=== PATIENT | male | born 1960 | race Caucasian/White ===

== ENCOUNTER 2020-09-01 02:00 | Outpatient (CLI) | payer OTHER, SELFPAY ==
[2020-09-01 18:46] LABS: SARS-CoV-2 RNA PCR Negative
== END 2020-09-01 02:01 | disposition home or self-care (01) ==
LOC: ANHCOVIDDT 02:00
PROVIDERS: PCP Family Medicine; Visit Provider Internal Medicine Gastroenterology
DX: Z01.818 Encounter for other preprocedural examination (principal); Z20.828 Contact with and (suspected) exposure to other viral communicable diseases
CPT/HCPCS: 87635; C9803; U0003

== ENCOUNTER 2020-09-04 01:22 | Day surgery (SDC) | payer OTHER, SELFPAY ==
[2020-08-28 14:52] VITALS: BMI 36.5
[2020-09-04 11:02] VITALS: BP 138/100; PULSE 117; RESP 18; TEMP 36.1; O2SAT 97
[2020-09-04] MEDS: LACTATED RINGERS 1,000 ML 150 ML IV CONT (11:05)
--- NOTE | 2020-09-04 11:27 | WPDANESEPPF ---
Anes - Initial Pre Proc Eval Procedure: Operation Date: 09/04/20 12:00 Proposed Procedures p Screening Colonoscopy - Dominik Gilliam DO Date/Time: 09/04/20 11:27 Surgeon: Dominik Gilliam DO Pre Op Diagnosis: Neoplasm Screening Patient Data Age: 60 Gender: M Height: 5 ft 8 in Weight: 104.7 kg Last Vital Signs Temp 36.1 C L 09/04/20 11:02 Pulse 117 H 09/04/20 11:02 Resp 18 09/04/20 11:02 BP 138/100 H 09/04/20 11:02 Pulse Ox 97 09/04/20 11:02 Allergies Allergy/AdvReac Type Severity Reaction Status Date / Time No Known Allergies Allergy Verified 09/04/20 11:01 Home Medications Medication Instructions Recorded Confirmed Type fluticasone propionate 50 1 spray NASAL BID #18.2 ml 08/30/19 08/28/20 Rx mcg/actuation nasal spray,suspension omeprazole 20 mg capsule,delayed 20 mg PO DAILY #30 cap 05/31/20 08/28/20 Rx release cefdinir 300 mg capsule 300 mg PO Q12H #20 cap 06/12/20 08/28/20 Rx duloxetine 60 mg capsule,delayed 60 mg PO BID #60 cap 06/12/20 08/28/20 Rx release ascorbic acid (vitamin C) 1 g PO DAILY 08/28/20 08/28/20 History celecoxib 200 mg PO DAILY 08/28/20 08/28/20 History cyanocobalamin (vitamin B-12) 1,000 mcg PO DAILY 08/28/20 08/28/20 History [Vitamin B-12] ergocalciferol (vitamin D2) 1,000 unit PO DAILY 08/28/20 08/28/20 History [Vitamin D2] vitamin E mixed [Natural Vitamin E] 400 unit PO DAILY 08/28/20 08/28/20 History Patient hx anesthesia problems: none Family hx anesthesia problems: none PMFSH Past Medical History Medical History Acute recurrent maxillary sinusitis Acute recurrent sinusitis Benign colon polyp Chronic depression Chronic neck pain Chronic tension-type headache, not intractable Chronic thoracic back pain Depression Encounter for prostate cancer screening Encounter for wellness examination in adult Exposure to COVID-19 virus GERD (gastroesophageal reflux disease) Migraine Mixed hyperlipidemia Osteoarthritis involving multiple joints on both sides of body Seasonal allergic rhinitis Vitamin B12 deficiency anemia Vitamin D deficiency, unspecified Surgical History Surgical History H/O knee surgery H/O neck surgery Family History Family History Mother , age 89 Breast cancer Heart valve disorder Father , age 90 Cancer Heart disease Arthritis Social History Social History Smoking packs per day: 1 Smoking cigarettes per day: 20.0 Years smoked: 15 Smoking pack-years: 15.00 Smoking status: Former smoker Tobacco type: cigarettes Second hand tobacco smoke exposure: No Alcohol intake: current Drinks per week: 1 Substance use: never Substance use type: does not use Gender identity (if verbalized by the patient): Male Spiritual care concerns: No Anes - Eval Final PreProcedure Day of Procedure 09/04/20 11:27 Patient weight: obese Heart: regular rate and rhythm Lungs: clear to auscultation Airway: Mallampati scale class II Neurological: alert and oriented Last oral intake: >/= 8 hours ASA classification: III Emergent: no Anesthetic plan: proceed Anesthesia type and monitoring: general GIVS and standard monitoring Informed Consent: The patient's anesthetic plan and its attendant risks and benefits were discussed with the patient/family/POA. Questions were solicited and answers provided to the satisfaction of the patient/family/POA.
--- NOTE | 2020-09-04 11:59 | WPDHPUPDATE1 ---
History and Physical Update Update Date/Time: 09/04/20 11:59 History and Physical has been reviewed, including an updated exam of the patient. There are NO changes in the patient's condition. Risks, benefits, and alternatives have been discussed and questions answered. Patient agrees to proceed with procedure.
--- NOTE | 2020-09-04 11:59 | PM.IMHP ---
H&P: HPI History of Present Illness Date/Time: 09/04/20 11:59 Chief complaint: Neoplasm Screening Narrative: Reason for visit is colonoscopy. This very pleasant gentleman seen in consultation request of the primary physician. Impression: Screening and surveillance colonoscopy. The patient has a history adenomatous colon polyps. GERD. He does Plane of recent dysphagia. Underlying ring stricture be excluded. Depression. HLD. Recommendation: Colonoscopy. EGD will be scheduled. History: This very pleasant gentleman is negative GI review systems at this time. He does have complaints of dysphagia. He is here for screening and surveillance colonoscopy. His history adenomatous colon polyps. Physical examination: General: very pleasant patient in no acute distress. HEENT: Head was normocephalic sclerae is clear mouth without masses neck was supple. Heart: Rate rhythm regular without S3 or S4. Lungs: CTA. Abdomen: Soft with no guarding or rigidity. Bowel sounds were active. Neurologic: Cranial nerves 2 through 12 intact. No focal defects. No clonus. Musculoskeletal system: Revealed no joint tenderness or swelling no muscle atrophy. Extremities: Reveal no significant edema. Skin: Warm and dry with normal turgor. Mental status: intact. Patient is alert and oriented. Review of Systems Review of Systems: All systems reviewed & are unremarkable except as noted in HPI and below PMFSH Past Medical History Medical History (Updated 09/04/20 @ 11:59 by Dominik Gilliam DO) Acute recurrent maxillary sinusitis Acute recurrent sinusitis Adenomatous colon polyp Benign colon polyp Chronic depression Chronic neck pain Chronic tension-type headache, not intractable Chronic thoracic back pain Depression Encounter for prostate cancer screening Encounter for wellness examination in adult Exposure to COVID-19 virus GERD (gastroesophageal reflux disease) Migraine Mixed hyperlipidemia Osteoarthritis involving multiple joints on both sides of body Seasonal allergic rhinitis Vitamin B12 deficiency anemia Vitamin D deficiency, unspecified Surgical History Surgical History H/O knee surgery H/O neck surgery Family History Family History Mother , age 89 Breast cancer Heart valve disorder Father , age 90 Cancer Heart disease Arthritis Social History Social History Smoking packs per day: 1 Smoking cigarettes per day: 20.0 Years smoked: 15 Smoking pack-years: 15.00 Smoking status: Former smoker Tobacco type: cigarettes Second hand tobacco smoke exposure: No Alcohol intake: current Drinks per week: 1 Substance use: never Substance use type: does not use Gender identity (if verbalized by the patient): Male Spiritual care concerns: No Meds Home Medications and Allergies Home Medications Medication Instructions Recorded Confirmed Type fluticasone propionate 50 1 spray NASAL BID #18.2 ml 08/30/19 08/28/20 Rx mcg/actuation nasal spray,suspension omeprazole 20 mg capsule,delayed 20 mg PO DAILY #30 cap 05/31/20 08/28/20 Rx release cefdinir 300 mg capsule 300 mg PO Q12H #20 cap 06/12/20 08/28/20 Rx duloxetine 60 mg capsule,delayed 60 mg PO BID #60 cap 06/12/20 08/28/20 Rx release ascorbic acid (vitamin C) 1 g PO DAILY 08/28/20 08/28/20 History celecoxib 200 mg PO DAILY 08/28/20 08/28/20 History cyanocobalamin (vitamin B-12) 1,000 mcg PO DAILY 08/28/20 08/28/20 History [Vitamin B-12] ergocalciferol (vitamin D2) 1,000 unit PO DAILY 08/28/20 08/28/20 History [Vitamin D2] vitamin E mixed [Natural Vitamin E] 400 unit PO DAILY 08/28/20 08/28/20 History Allergies Allergy/AdvReac Type Severity Reaction Status Date / Time No Known Allergies Allergy Verified
[2020-09-04 12:21] VITALS: BP 113/79; PULSE 99; RESP 21; O2SAT 96
[2020-09-04 12:31] VITALS: BP 130/90; PULSE 94; RESP 18; O2SAT 97
[2020-09-04 12:41] VITALS: BP 128/94; PULSE 94; RESP 18; O2SAT 94
== END 2020-09-04 12:50 | disposition home or self-care (01) ==
PROVIDERS: PCP Family Medicine; Visit Provider Internal Medicine Gastroenterology
PROC: 0DJD8ZZ Inspection of Lower Intestinal Tract, Via Natural or Artificial Opening Endoscopic (ICD-10-PCS; CPT 45378; principal; 2020-09-04 12:00)
DX: Z12.11 Encounter for screening for malignant neoplasm of colon (principal); J32.0 Chronic maxillary sinusitis; K64.8 Other hemorrhoids; D51.0 Vitamin B12 deficiency anemia due to intrinsic factor deficiency; G44.209 Tension-type headache, unspecified, not intractable; E55.9 Vitamin D deficiency, unspecified; F32.9 Major depressive disorder, single episode, unspecified; K21.9 Gastro-esophageal reflux disease without esophagitis; G43.909 Migraine, unspecified, not intractable, without status migrainosus; E78.2 Mixed hyperlipidemia; E66.9 Obesity, unspecified; Z68.35 Body mass index [BMI] 35.0-35.9, adult; Z87.891 Personal history of nicotine dependence
CPT/HCPCS: 45378; J2704; J7120

== ENCOUNTER 2020-10-16 00:31 | Outpatient (CLI) | payer OTHER, SELFPAY ==
[2020-10-16 18:26] LABS: SARS-CoV-2 RNA PCR Negative
== END 2020-10-16 00:32 | disposition home or self-care (01) ==
LOC: ANHCOVIDDT 00:32
PROVIDERS: PCP Family Medicine; Visit Provider Internal Medicine Gastroenterology
DX: Z01.812 Encounter for preprocedural laboratory examination (principal); Z20.822 Contact with and (suspected) exposure to COVID-19
CPT/HCPCS: C9803; U0003; U0005

== ENCOUNTER 2020-10-19 01:19 | Day surgery (SDC) | payer OTHER, SELFPAY ==
[2020-10-02 15:45] VITALS: BMI 35.9
[2020-10-19 07:50] VITALS: BP 169/102; PULSE 105; RESP 17; TEMP 36.4; O2SAT 99; BMI 36.6
[2020-10-19] MEDS: LACTATED RINGERS 1,000 ML 150 ML IV CONT (08:02)
[2020-10-19 08:05] VITALS: BP 158/84
--- NOTE | 2020-10-19 09:02 | WPDGICN ---
GI Consult Note Consult date/time: 10/19/20 09:02 HPI: Reason for visit is EGD. This very pleasant gentleman seen in consultation request of the primary physician. Impression: GERD with history dysphagia. Evaluate for lying ring or stricture. Adenomatous colon polyps. Recurrent sinusitis. Depression. HLD. DJD. Migraine cephalgia. Vitamin B12 deficiency. Vitamin-D deficiency. Recommendation: EGD. History: This very pleasant gentleman's here for EGD. He has a history of dysphagia to solid foods. He has a history reflux disease well controlled on medication. GI review systems otherwise unremarkable. Did have a history of adenomatous colon polyps. Does have some difficulty with his sinuses which is being treated by ENT. Physical examination: General: very pleasant patient in no acute distress. HEENT: Head was normocephalic sclerae is clear mouth without masses neck was supple. Heart: Rate rhythm regular without S3 or S4. Lungs: CTA. Abdomen: Soft with no guarding or rigidity. Bowel sounds were active. Neurologic: Cranial nerves 2 through 12 intact. No focal defects. No clonus. Musculoskeletal system: Revealed no joint tenderness or swelling no muscle atrophy. Extremities: Reveal no significant edema. Skin: Warm and dry with normal turgor. Mental status: intact. Patient is alert and oriented. Review of Systems Review of Systems: All systems reviewed & are unremarkable except as noted in HPI and below [facility] Past Medical History Medical History (Updated 10/19/20 @ 09:01 by Dominik Gilliam DO) Acute recurrent sinusitis Adenomatous colon polyp Chronic depression Depression GERD (gastroesophageal reflux disease) HLD (hyperlipidemia) Migraine Osteoarthritis involving multiple joints on both sides of body Seasonal allergic rhinitis Vitamin B12 deficiency anemia Vitamin D deficiency, unspecified Surgical History Surgical History H/O knee surgery H/O neck surgery Family History Family History Mother , age 89 Breast cancer Heart valve disorder Father , age 90 Cancer Heart disease Arthritis Social History Social History Smoking packs per day: 1 Smoking cigarettes per day: 20.0 Years smoked: 10 Smoking pack-years: 10.00 Smoking status: Current every day smoker Tobacco type: cigarettes Second hand tobacco smoke exposure: No Smoking end date: 09/22/99 Alcohol intake: current Drinks per week: 1 Substance use: never Substance use type: does not use Living arrangements: with family Gender identity (if verbalized by the patient): Male Spiritual care concerns: No Meds Home Medications and Allergies Home Medications Medication Instructions Recorded Confirmed Type omeprazole 20 mg capsule,delayed 20 mg PO DAILY #30 cap 05/31/20 10/19/20 Rx release ascorbic acid (vitamin C) 1 g PO DAILY 08/28/20 10/19/20 History celecoxib 200 mg PO DAILY 08/28/20 10/19/20 History cyanocobalamin (vitamin B-12) 1,000 mcg PO DAILY 08/28/20 10/19/20 History [Vitamin B-12] ergocalciferol (vitamin D2) 1,000 unit PO DAILY 08/28/20 10/19/20 History [Vitamin D2] vitamin E mixed [Natural Vitamin E] 400 unit PO DAILY 08/28/20 10/19/20 History cefdinir 300 mg capsule 300 mg PO Q12H #20 cap 09/25/20 10/19/20 Rx duloxetine 60 mg PO DAILY 10/02/20 10/19/20 History bhwghzeohbil-ovzhmgql-hwquul 1 tablet PO DAILY 10/02/20 10/19/20 History [Multivitamin 50 Plus] azelastine 137 mcg (0.1 %) nasal 1 spray INTRANASAL Q12H #30 ml 10/04/20 10/19/20 Rx spray aerosol fluticasone propionate 50 1 spray INTRANASAL BID #15.8 ml 10/04/20 10/19/20 Rx mcg/actuation nasal spray,suspension Allergies Allergy/AdvReac Type Severity Reaction Status Date / Time No
--- NOTE | 2020-10-19 09:16 | WPDANESEPPF ---
Anes - Initial Pre Proc Eval Procedure: Operation Date: 10/19/20 09:00 Proposed Procedures p Esophagogastroduodenoscopy - Dominik Gilliam DO Date/Time: 10/19/20 09:16 Surgeon: Dominik Gilliam DO Pre Op Diagnosis: GERD Patient Data Age: 60 Gender: M Height: 5 ft 8 in Weight: 109.2 kg Last Vital Signs Temp 97.6 F 10/19/20 07:50 Pulse 105 H 10/19/20 07:50 Resp 17 10/19/20 07:50 BP 158/84 H 10/19/20 08:05 Pulse Ox 99 10/19/20 07:50 Allergies Allergy/AdvReac Type Severity Reaction Status Date / Time No Known Allergies Allergy Verified 10/19/20 07:49 Home Medications Medication Instructions Recorded Confirmed Type omeprazole 20 mg capsule,delayed 20 mg PO DAILY #30 cap 05/31/20 10/19/20 Rx release ascorbic acid (vitamin C) 1 g PO DAILY 08/28/20 10/19/20 History celecoxib 200 mg PO DAILY 08/28/20 10/19/20 History cyanocobalamin (vitamin B-12) 1,000 mcg PO DAILY 08/28/20 10/19/20 History [Vitamin B-12] ergocalciferol (vitamin D2) 1,000 unit PO DAILY 08/28/20 10/19/20 History [Vitamin D2] vitamin E mixed [Natural Vitamin E] 400 unit PO DAILY 08/28/20 10/19/20 History cefdinir 300 mg capsule 300 mg PO Q12H #20 cap 09/25/20 10/19/20 Rx duloxetine 60 mg PO DAILY 10/02/20 10/19/20 History lljvmgplvpfo-yotqtcbi-xzhqwi 1 tablet PO DAILY 10/02/20 10/19/20 History [Multivitamin 50 Plus] azelastine 137 mcg (0.1 %) nasal 1 spray INTRANASAL Q12H #30 ml 10/04/20 10/19/20 Rx spray aerosol fluticasone propionate 50 1 spray INTRANASAL BID #15.8 ml 10/04/20 10/19/20 Rx mcg/actuation nasal spray,suspension Patient hx anesthesia problems: none Family hx anesthesia problems: none PMFSH Past Medical History Medical History (Updated 10/19/20 @ 09:05 by Dominik Gilliam DO) Acute recurrent sinusitis Adenomatous colon polyp Depression Gastric ulcer GERD (gastroesophageal reflux disease) HLD (hyperlipidemia) Migraine Osteoarthritis involving multiple joints on both sides of body Seasonal allergic rhinitis Vitamin B12 deficiency anemia Vitamin D deficiency, unspecified Surgical History Surgical History H/O knee surgery H/O neck surgery Family History Family History Mother , age 89 Breast cancer Heart valve disorder Father , age 90 Cancer Heart disease Arthritis Social History Social History Smoking packs per day: 1 Smoking cigarettes per day: 20.0 Years smoked: 10 Smoking pack-years: 10.00 Smoking status: Current every day smoker Tobacco type: cigarettes Second hand tobacco smoke exposure: No Smoking end date: 09/22/99 Alcohol intake: current Drinks per week: 1 Substance use: never Substance use type: does not use Living arrangements: with family Gender identity (if verbalized by the patient): Male Spiritual care concerns: No Anes - Eval Final PreProcedure Day of Procedure 10/19/20 09:16 Patient weight: overweight Heart: regular rate and rhythm Lungs: clear to auscultation Airway: Mallampati scale class II Neurological: alert and oriented Last oral intake: >/= 8 hours ASA classification: III Emergent: no Anesthetic plan: proceed Anesthesia type and monitoring: general GIVS and standard monitoring Informed Consent: The patient's anesthetic plan and its attendant risks and benefits were discussed with the patient/family/POA. Questions were solicited and answers provided to the satisfaction of the patient/family/POA.
[2020-10-19 10:04] VITALS: BP 105/56; PULSE 90; RESP 20; O2SAT 99
[2020-10-19 10:14] VITALS: BP 119/74; PULSE 86; RESP 8; O2SAT 98
[2020-10-19 10:24] VITALS: BP 135/80; PULSE 84; RESP 18; O2SAT 98
== END 2020-10-19 10:31 | disposition home or self-care (01) ==
PROVIDERS: PCP Family Medicine; Visit Provider Internal Medicine Gastroenterology
PROC: 0DJ08ZZ Inspection of Upper Intestinal Tract, Via Natural or Artificial Opening Endoscopic (ICD-10-PCS; CPT 43235; principal; 2020-10-19 09:00)
DX: K21.9 Gastro-esophageal reflux disease without esophagitis (principal); R13.10 Dysphagia, unspecified; E78.5 Hyperlipidemia, unspecified; F32.9 Major depressive disorder, single episode, unspecified; E55.9 Vitamin D deficiency, unspecified; E53.8 Deficiency of other specified B group vitamins; F17.210 Nicotine dependence, cigarettes, uncomplicated
CPT/HCPCS: 43239; 43450; 87081; C9803; J2704; J7120; U0003; U0005

== ENCOUNTER → 2021-09-06 03:54 | Outpatient (CLI) | payer OTHER, SELFPAY ==
[2021-09-11 22:52] LABS: SARS-CoV-2 RNA PCR Negative
== END ==
PROVIDERS: PCP Family Medicine; Visit Provider Family Medicine
DX: R68.89 Other general symptoms and signs (principal); Z20.822 Contact with and (suspected) exposure to COVID-19
CPT/HCPCS: C9803; U0003; U0005

== ENCOUNTER 2022-01-02 07:59 | Outpatient (CLI) | payer OTHER, SELFPAY ==
--- NOTE | ~2022-01-02 | CT_ITS ---
EXAMINATION: CT sinus wo con DATE: 01/02/2022 08:18 INDICATION: Nasal polyp, chronic sinusitis TECHNIQUE: Computed tomography (CT) of the paranasal sinuses was performed without intravenous contra st. The dose-length product (DLP) was 258.77 mGy-cm. Iterative reconstruction was used. COMPARISON: None FINDINGS: There is normal development and pneumatization of the paranasal sinuses. There is mild muco [place]aviota thickening of the maxillary sinuses. The frontal, sphenoid, and ethmoid sinuses are clear. The ri ght infundibulum is occluded. Visualized soft tissues are unremarkable. IMPRESSION: 1. Mild mucosal thickening of the maxillary sinuses and occluded infundibulum on the right. Reviewed, dictated and finalized at location A. IMPRESSION: 1. Mild mucosal thickening of the maxillary sinuses and occluded infundibulum o n the right.
== END 2022-01-02 08:00 ==
PROVIDERS: PCP Family Medicine; Visit Provider Otolaryngology
DX: J33.9 Nasal polyp, unspecified (principal)
CPT/HCPCS: 70486

== ENCOUNTER 2022-05-20 07:42 | Outpatient (CLI) | payer OTHER, SELFPAY ==
--- NOTE | 2022-05-26 23:37 | WPDHOMESLEEP ---
Sleep Study - Home Unattended Date of Study: 05/20/22 Ordering Provider: Reina Singh NP Interpreting Provider: Teressa Bill, DO Home Sleep Study Type: Watch PAT Height: 1.73 m Weight: 108.862 kg Body Mass Index: 36.5 Neck Circumference (inches): 18 [place]: 13 Reason for Sleep Study Daytime hypersomnia Sleep History The patient is a 62-year-old male with depression, GERD, osteoarthritis and seasonal allergies that had a sleep study ordered by his primary care for evaluation of sleep apnea. The patient rarely awakens from sleep short of breath. He frequently awakens at night with heartburn, belching or cough. He frequently snores loud enough that others complain. He occasionally has trouble sleeping when he has a cold. He rarely wakes up gasping for air throughout the night. He frequently has breathing problems at night observed by himself or others. He denies sweating excessively at night. He rarely has heart palpitations or irregular heartbeats during the night. He occasionally falls asleep during the day and rarely falls asleep while driving. He occasionally experiences loss of muscle tone when extremely emotional. He frequently has trouble at school or work due to sleepiness. He denies feeling unable to move while waking up or falling asleep. He denies experiencing vivid dreamlike scenes upon awakening or falling asleep. He denies feeling afraid of going to sleep. He rarely has nightmares. He rarely remembers his dreams. He frequently has thoughts racing through his mind. He occasionally feels sad or depressed. He frequently has anxiety. He occasionally has muscular tension. He occasionally notices parts of his body jerk. He rarely kicks during the night. He occasionally has crawling and aching feelings in his legs but rarely awakens with leg pain throughout the night. He frequently grind his teeth during sleep but rarely awakens with morning jaw pain. He is frequently bothered by pain during the day and occasionally awakened by pain during the night. He occasionally wakes up feeling stiff in the morning. He occasionally wakes up with sore achy muscles. He frequently wakes up with pain in the neck, spine or other joints. He goes to bed at 11:00 p.m. on weekdays and between 11:30 p.m. to midnight on the weekends. He did not specify a certain amount of time for him to fall asleep. He wakes up multiple times throughout the night to reposition himself. The amount of time it takes him to fall back asleep is variable. He wakes up at 6:00 a.m. on weekdays and 7:00 a.m. on the weekends. He is unsure how many hours of sleep he gets per night but will stay in bed for 7-8 hours every night. He will stay in bed for 30 minutes after waking up in the morning. He denies consuming any caffeinated beverages within 2 hours of bedtime. He does not engage in physical exercise before bedtime. He will watch television before falling asleep. He will attempt to take a nap in the afternoon or the evening but it is not refreshing. He does not consume any caffeinated beverages throughout the day. He quit smoking 27 years ago. He drinks 4-5 alcoholic beverages per week. He denies recreational drug use. PMFSH Past Medical History Medical History Acute recurrent sinusitis Adenomatous colon polyp Bilateral chronic knee pain BMI 36.0-36.9,adult BMI 37.0-37.9, adult Depression Gastric ulcer GERD (gastroesophageal reflux disease) normal EGD with Dr. Gilliam on 10/19/2020 Hypersomnia Migraine Osteoarthritis involving multiple joints on both sides of body Seasonal allergic rhinitis Snoring Vitamin B12 deficiency anemia Vitamin D deficiency, unspecified Witnessed episode of apnea Surgical History Surgical History H/O knee surgery H/O neck surgery Family History Family History (Reviewed 05/26/22 @ 23:41 by Jose
[2022-05-26 23:47] VITALS: BMI 36.5
== END 2022-05-21 11:32 | disposition home or self-care (01) ==
LOC: ANHCSM 07:43
PROVIDERS: PCP Family Medicine; Visit Provider Nurse Practitioner Family
DX: G47.30 Sleep apnea, unspecified (principal); G47.33 Obstructive sleep apnea (adult) (pediatric)
CPT/HCPCS: 95800

== ENCOUNTER 2022-06-11 08:09 | Outpatient (CLI) | payer OTHER, SELFPAY ==
--- NOTE | 2022-06-19 10:51 | WPDSLEEPSTUD ---
Sleep Study Date of Study: 06/11/22 Ordering Provider: Dylan Rebolledo MD Interpreting Physician: Carina Cruz MD Sleep Study Type: Split Polysomnogram Height: 1.7 m Weight: 108.862 kg Body Mass Index: 37.5 Neck Circumference (inches): 18 [place]: 13 Reason for Sleep Study * Home sleep test using [employer] 05/20/2022 with severe obstructive sleep apnea, AHI 71.6 and desaturation to 75%. His central apnea index was 6. He presents now for CPAP titration. * 06/14/2022 echo - Left ventricular chamber dimension is moderately enlarged. Left ventricular systolic function is normal, estimated at 60-65%. The left ventricular diastolic function is abnormal. There is trace tricuspid valve regurgitation. No pulmonary hypertension, estimated pulmonary arterial systolic pressure is 36 mmHg. Sleep History Joseph Land is a 62 year-old man who has severe obstructive sleep apnea on a recent home sleep test, AHI was 76.1, central apnea index 6 and desaturation to 75%. He did not have Juan C-Grewal respirations. He now presents for a CPAP titration. He had an echo due to the increase central apnea inde of 6. He does not have systolic dysfunction, EF 60-65%, see above. His medical diagnoses include depression, GERD, osteoarthritis and seasonal allergies. He rarely awakens from sleep short of breath.? He frequently awakens at night with heartburn, belching or cough.? He frequently snores loudly enough that others complain.? He occasionally has trouble sleeping when he has a cold.? He rarely wakes up gasping for air throughout the night.? He frequently has breathing problems at night observed by himself or others.? He denies sweating excessively at night.? He rarely has heart palpitations or irregular heartbeats during the night.? He occasionally falls asleep during the day and rarely falls asleep while driving.? He occasionally experiences loss of muscle tone when extremely emotional.? He frequently has trouble at work due to sleepiness.? He denies feeling unable to move while waking up or falling asleep.? He denies experiencing vivid dreamlike scenes upon awakening or falling asleep.? He denies feeling afraid of going to sleep.? He rarely has nightmares.? He rarely remembers his dreams.? He frequently has thoughts racing through his mind.? He occasionally feels sad or depressed.? He frequently has anxiety.? He occasionally has muscular tension.? He occasionally notices parts of his body jerk.? He rarely kicks during the night.? He occasionally has crawling and aching feelings in his legs but rarely awakens with leg pain throughout the night.? He frequently grind his teeth during sleep but rarely awakens with morning jaw pain.? He is frequently bothered by pain during the day and occasionally awakened by pain during the night.? He occasionally wakes up feeling stiff in the morning.? He occasionally wakes up with sore achy muscles.? He frequently wakes up with pain in the neck, spine or other joints.? He goes to bed at 11:00 p.m. on weekdays and between 11:30 p.m. to midnight on the weekends.? He did not specify a certain amount of time for him to fall asleep.? He wakes up multiple times throughout the night to reposition himself.? The amount of time it takes him to fall back asleep is variable.? He wakes up at 6:00 a.m. on weekdays and 7:00 a.m. on the weekends.? He is unsure how many hours of sleep he gets per night but will stay in bed for 7-8 hours every night.? He will stay in bed for 30 minutes after waking up in the morning.? He denies consuming any caffeinated beverages within 2 hours of bedtime.? He does not engage in physical exercise before bedtime.? He will watch television before falling asleep.? He will attempt to take a nap in the afternoon or the evening but it is not refreshing.? He does not consume any caffeinated beverages throughout the day.? He quit smoking 27 years ago.? He drinks 4-5 alcoholic beverages per week.? He denies recreational drug use. PMF
[2022-06-19 11:12] VITALS: BMI 37.5
== END 2022-06-12 05:44 | disposition home or self-care (01) ==
LOC: ANHCSM 08:11
PROVIDERS: PCP Family Medicine; Visit Provider Family Medicine
DX: G47.33 Obstructive sleep apnea (adult) (pediatric) (principal)
CPT/HCPCS: 95811

== ENCOUNTER 2022-06-14 13:35 | Outpatient (CLI) | payer OTHER, SELFPAY ==
--- NOTE | 2022-06-14 14:03 | ECHO_ITS ---
Patient Info Name: Joseph Land Age: 62 years : 1960 Gender: Male Ht: 68 in Wt: 240 lbs BSA: 2.33 m2 HR: 96 bpm BP: 156 / 91 mmHg Technical Quality: Fair Exam Date: 06/14/2022 2:20 PM Exam Location: [facility] Patient Status: Outpatient Admit Date: 06/14/2022 Staff Ordering Physician: Dylan Rebolledo MD Personal Lines Sales Executive: Tracey Suárez RDCS Attending Provider: Dylan Rebolledo MD Referring Physician: Amaury QUEVEDO; Exam Type: CA echo doppler color flow Study Info Indications G47.31 - PRIMARY CENTRAL SLEEP APNEA Complete two-dimensional, color flow and Doppler transthoracic echocardiogram is performed. Summary 1. Complete two-dimensional, color flow and Doppler transthoracic echocardiogram is performed. 2. Left ventricular chamber dimension is moderately enlarged. 3. Left ventricular systolic function is normal, estimated at 60-65%. 4. The left ventricular diastolic function is abnormal. 5. E/e' 10 is mildly elevated. 6. There is trace tricuspid valve regurgitation. 7. No pulmonary hypertension, estimated pulmonary arterial systolic pressure is 36 mmHg. Left Ventricle E/e' 10 is mildly elevated. Left ventricular chamber dimension is moderately enlarged. Left ventricular systolic function is normal, estimated at 60-65%. The left ventricular diastolic function is abnormal. Right Ventricle Right ventricular chamber dimension is normal. Right ventricular systolic function is normal. Left Atria Left atrial chamber dimension is normal. Right Atria Right atrial chamber dimension is normal. Aortic Valve The aortic valve is trileaflet. There is no aortic valve stenosis. There is no aortic valve regurgitation. Pulmonic Valve There is no pulmonic regurgitation. Mitral Valve There is no mitral valve stenosis. There is no mitral valve regurgitation. Tricuspid Valve There is trace tricuspid valve regurgitation. No pulmonary hypertension, estimated pulmonary arterial systolic pressure is 36 mmHg. Pericardium/Pleural There is no pericardial effusion. Inferior Vena Cava Normal inferior vena cava with >50% collapse upon inspiration consistent with normal right atrial pressure, 5 mmHg. Aorta The aortic root size at the sinus of Valsalva is normal. Left Ventricular Outflow Tract Name Value Normal LVOT 2D LVOT Diameter 2.1 cm LVOT Doppler LVOT Peak Gradient 2 mmHg LVOT Mean Gradient 1 mmHg LVOT VTI 13 cm LVOT VTI/AV VTI Ratio 0.7 LVOT Stroke Volume 44 ml LVOT CO 10.5 l/min LVOT CI 4.5 l/min/m2 Pulmonic Valve Name Value Normal PV Doppler PV Peak Gradient 5 mmHg Beti
== END 2022-06-14 13:36 | disposition home or self-care (01) ==
PROVIDERS: PCP Family Medicine; Visit Provider Family Medicine
DX: G47.31 Primary central sleep apnea (principal)
CPT/HCPCS: 93306

== ENCOUNTER 2024-08-05 13:54 | Outpatient (CLI) | payer OTHER, SELFPAY ==
--- NOTE | ~2024-08-05 | MR_ITS ---
MRI of the lumbar spine Clinical History: Back pain Technique: Axial T2-weighted images, and sagittal T1-weighted, T2-weighted, and T2 fat-sat images wer e acquired. Findings: No acute fracture identified. There is minimal grade 1 anterolisthesis of L4 over L5. There are chronic mild compression deformities of T11 and T12. No suspicious or acute bone marrow signal a bnormality seen. At L1-L2, there is no disc bulge or herniation. There is moderate facet arthropathy. No central canal stenosis or neural foraminal narrowing. At L2-L3, there is no disc bulge or herniation. There is moderate facet arthropathy. No central canal stenosis or neural foraminal narrowing. At L3-L4, there is mild diffuse disc bulge with moderate to advanced facet arthropathy. No central ca nal stenosis. There is moderate left neural foraminal narrowing, and mild right neural foraminal narr owing. At L4-L5, there is disc bulge and severe facet arthropathy, resulting in severe spinal canal stenosis /thecal sac compression. There is moderate right neural foraminal narrowing. Left neural foramen pres erved. At L5-S1, there is no disc bulge or herniation. There is moderate facet arthropathy. No central canal stenosis or neural foraminal narrowing. Paravertebral soft tissues are unremarkable. Impression: Severe degenerative spondylosis at L4-L5, as detailed above. Moderate degenerative spondylosis at L3-L4. Chronic mild compression deformities of T11 and T12. Reviewed, dictated and finalized at [facility]. RN[employer] TRAVEL CONSULTANT Impression: Severe degenerative spondylosis at L4-L5, as detailed above. Moderate degenerative spondylosis at L3-L4. Chronic mild compression deformities of T11 and T12.
== END 2024-08-05 13:55 | disposition home or self-care (01) ==
LOC: MICIMG 13:56
PROVIDERS: PCP Family Medicine; Visit Provider Physician Assistant Surgical
DX: M47.896 Other spondylosis, lumbar region (principal); M43.8X4 Other specified deforming dorsopathies, thoracic region
CPT/HCPCS: 72148

== ENCOUNTER 2024-10-12 13:49 | Outpatient (CLI) | payer OTHER, SELFPAY ==
--- NOTE | 2024-10-12 14:02 | ECHO_ITS ---
Patient Info Name: Joseph Land Age: 64 years : 1960 Gender: Male Ht: 67 in Wt: 236 lbs BSA: 2.30 m2 HR: 92 bpm BP: 154 / 84 mmHg Technical Quality: Poor Exam Date: 10/12/2024 2:09 PM Exam Location: Echo Lab Patient Status: Outpatient Admit Date: 10/12/2024 Staff Ordering Physician: Dylan Rebolledo MD Ship Unloader: Dion Kee RDCS Attending Provider: Dylan Rebolledo MD Referring Physician: Amaury UQEVEDO; Exam Type: CA echo dop color flow w con Study Info Indications - HEART DISEASE - CARDIAC MURMUR Complete two-dimensional, color flow and Doppler transthoracic echocardiogram is performed with contrast to opacify the left ventricle and to improve the deliniation of the left ventricle endocardial borders. Contrast/Agitated Saline Contrast/Ag. Saline: Definity Amount: 2.00 ml Existing IV Access: Yes Reason for Poor Study: poor echocardiographic windows Summary 1. Definity contrast administered improved wall motion interpretation. 2. Left ventricular chamber dimension is normal. 3. Left ventricular systolic function is normal, estimated at 60-65%. 4. The left ventricular diastolic function is normal. 5. E/e' 7 is not elevated. 6. There is mild to moderate mitral valve regurgitation. Left Ventricle E/e' 7 is not elevated. Definity contrast administered improved wall motion interpretation. Left ventricular chamber dimension is normal. Left ventricular systolic function is normal, estimated at 60-65%. The left ventricular diastolic function is normal. Right Ventricle Right ventricular systolic function is normal and with normal TAPSE 2.0 cm. Right ventricular chamber dimension is normal. Left Atria Left atrial chamber dimension is normal. Right Atria Right atrial chamber dimension is normal. Aortic Valve The aortic valve is trileaflet. There is no aortic valve stenosis. There is no aortic valve regurgitation. Pulmonic Valve There is no pulmonic regurgitation. Mitral Valve There is no mitral valve stenosis. There is mild to moderate mitral valve regurgitation. Tricuspid Valve There is no tricuspid valve regurgitation. Pericardium/Pleural There is no pericardial effusion. Inferior Vena Cava Normal inferior vena cava with >50% collapse upon inspiration consistent with normal right atrial pressure, 5 mmHg. Aorta The aortic root size at the sinus of Valsalva is normal. Left Ventricular Outflow Tract Name Value Normal LVOT 2D LVOT Diameter 2.13 cm LVOT Doppler LVOT Peak Gradient 3 mmHg LVOT Mean Gradient 2 mmHg LVOT VTI 19.36 cm LVOT VTI/AV VTI Ratio 0.85 LVOT Stroke Volume 69.07 ml LVOT CO 5.22 l/min LVOT CI 2.28 L/min/m2 Pulmonic Valve Name Value Normal RVOT Doppler RVOT Peak Gradient 3 mmHg PV Doppler PV Peak Gradient 4 mmHg Mitral Valve Name Value Normal MV Doppler MV Peak Gradient 4 mmHg MV Mean Gradient 2 mmHg MV Decel Rich 641.20 cm/s2 MV PHT 0 s MV Area (PHT) 6.00 cm2 4.00-5.00 MV Area (Cont Eq VTI) 2.71 cm2 MV Diastolic Function MV E Peak Velocity 81.09 cm/s MV A Peak Velocity 76.27 cm/s MV E/A 1.06 MV Decel Time 0 s MV Annular TDI MV E/e' (Septal) 8.26 <=8.00 MV E/e' (Lateral) 6.24 <=8.00 MV E/e' (Average) 7.25 Tricuspid Valve Name Value Normal Estimated PAP/RSVP RA Pressure 5 mmHg <=5 Aorta Name Value Normal Ascending Aorta Ao Root Diameter (MM) 3.63 cm Ao Root Diam Index (MM) 1.58 cm/m2 Aortic Valve Name Value Normal AV Doppler AV Peak Velocity 125.02 cm/s AV Peak Gradient 6 mmHg AV Mean Gradient 3 mmHg AV VTI 22.81 cm AV Area (Cont Eq VTI) 3.03 cm2 >=3.00 AV Area (Cont Eq Aric) 2.64 cm2 AV Regurgitation 2D LVOT Area 3.57 cm2 Ventricles Name Value Normal LV Dimensions 2D/MM IVS Diastolic Thickness (2D) 1.02 cm 0.60-1.00 LVID Diastole (2D) 4.83 cm 4.20-5.80 LVIW Diastolic Thickness (2D) 1.65 cm 0.60-1.00 LVID Systole (2D) 3.17 cm 2.50-4.00 LVOT Diameter 2.13 cm LV Mass (2D Cubed) 258.06 g 88.00-224.00 LV Mass Index (2D Cubed) 0.01 g/cm2 0.00-0.01 Relative Wall Thickness (2D) 0.68 LV Fractional Shortening/Ejection Fraction 2D/MM LV Fractional Shortening (2D) 36 % 25-43 LV EF (2D Teicholz) 65 % 52-72 LV Diastolic Volume (4C MOD) 138.72 ml LV EF (4C MOD) 71 % LV Diastolic Volume (2C MOD) 98.04 ml LV EF (2C MOD) 63 % LV Diastolic Volume (BP MOD) 118.28 ml 62.00-150.00 LV Diastolic Volume Index (BP MOD) 0.05 l/m2 0.03-0.07 LV Systolic Volume (BP MOD) 38.89 ml 21.00-61.00 LV Systolic Volume Index (BP MOD) 0.02 l/m2 0.01-0.03 LV EF (BP MOD) 67 % 52-72 LV Diastolic Length (4C) 8.21 cm LV Systolic Length (4C) 6.41 cm LV Stroke Volume (4C MOD) 97.84 ml Atria Name Value Normal LA Dimensions LA Dimension (MM) 4.11 cm 3.00-4.10 LA Volume (4C A-L) 58.89 ml LA Volume (BP A-L) 58.43 ml RA Dimensions RA Area (4C) 15.50 cm2 <=18.00 Report Signatures
[2024-10-12] MEDS: PERFLUTREN LIPID MICROSPHERES 1.5 ML VIAL DILUTED TO 10 ML TOTAL VOLUME IV PUSH (15:05)
--- NOTE | 2024-10-12 15:18 | IVDEFINITY ---
Prior to administration of IV Definity the patient was educated on the risks and benefits of the imaging enhancing agent including potential adverse side effects. The patient verbalized understanding. Allergies were verified. No exclusion criteria were identified and at least one of the following inclusion criteria were met: 1) physician request, 2) patient technically difficult to image (per the [place] [employer] guidelines of two or more segments not discernable within the apical view), or 3) questionable left ventricular function. ?
--- OUTSIDE RECORDS SUMMARY | 2024-10-14 18:37 | XMS_ITS | Data Portability ---
Author Organization [place] - [facility], Main Office Address [address] [place] [address] Care Team Providers Care Employee Relations Director Name Role Phone MONICO MOMIN Primary Care Provider [phone] MONICO MOMIN Referring Provider Assessment Encounter Date Assessment Date Assessment LastModified by Organization Details LastModified Time 03/26/2023 03/26/2023 HPI: 63-year-old male came in today for evaluation of his left greater than right thumb pain. The left thumbs been bothering him for 2 or 3 months the right for about 2 weeks. He points directly at the CMC joint where feels pain. He has pain with gripping and holding. He has pain on daily basis. 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 Patient is on Celebrex 200 mg and has been on this chronically. Physical exam: 63-year-old male very alert pleasant. He has moderate tenderness to both 1st CMC joints to palpation. He has moderate pain with grind of both 1st CMC joints. Full range of motion of the wrist and fingers. No swelling redness noted. 2+ radial pulse in both wrists. ChloraPrep was used on skin 5 mg Kenalog and 1 cc of 0.5% ropivacaine was injected in both 1st CMC joints. Patient tolerated well. Risk infection discussed. Impression: 63-year-old male has left greater than right ST-T changes in both thumbs. I discussed x-ray findings with him. We talked about nonsurgical treatment including continuing with his Celebrex which is excellent anti-inflammatori es. Talked about using the push brace and he is going to look online and think about that. We talked about cortisone injection and lastly would be CMC arthroplasty. He is hoping to put off surgery at this point. He wished to have injections today. We can repeat injections often as every 3 months. Will see how these injections do and proceed accordingly. See him back on as-needed basis. 20 minutes was spent in treatment patient more than half of this in petg-xy-ejag conversation Not available 03/26/2023 10:07:52 05/02/2023 05/02/2023 HPI: 63-year-old male came in today for evaluation of his left groin pain. Patient has been having symptoms on and off for several months. He will complain of a sudden severe jab type pain in the medial groin, pain quickly dissipates. There is no definite action or activity that will cause it. He feels that the left hip is little bit stiff as well. Patient works at a desk all day. Does get up occasionally walks around the office just to try to stay active. Sometimes he will have symptoms when he does this other times he does not. Patient is on Celebrex 200 mg chronically. He has been taking occasional Aleve when he is having more pain at night advised him not to do this as this could cause injury to his kidneys. He may take lydx-pxg-iicywoe Tylenol the Celebrex which would be safe. patient is not having symptoms on a daily basis. They are intermittent, some days he has no symptoms at all. Physical exam: 63-year-old male he is 5 ft 7 and 246 lb his BMI is 38.5. His left hip flexes to 120 with some mild discomfort, external rotation is to 30 internal rotation is to 10. He has mild discomfort internal external rotation. Negative Stinchfield maneuver. No tenderness over the greater trochanter. The mild discomfort he was having with rotation was felt in the mid groin. He is complaining of no numbness or tingling in the left leg. 2+ dorsalis pedis pulse. He walks relatively well today without limp. Impression: 63-year-old male who has early osteoarthritis of the left hip with hypertrophic changes to the femoral head as well as the acetabulum. I talked about the x-ray findings with him. At this point he is on a good anti-inflammatory . We did talk about activity modification to avoid things that are going to bother his hip. We also talked about weight loss. His BMI is 38 and certainly with weight loss there is a possibility that this will improve the symptoms in his hip. with the hypertrophic changes that he has he is going to have a little bit loss of motion and should be mindful rotational actions with hip as this will cause discomfort. Given his age and arthritis he has there is a strong likelihood that will need total hip arthroplasty at some point future we discussed this briefly as well. This point we see him back as needed. 20 minutes was spent in treatment patient more than half of this in tasc-[id number] conversation Not available 05/02/2023 09:39:04 06/25/2023 06/25/2023 HPI: Patient returns. It has been 3 months since his last cortisone injection of both of his CMC joints. Last injections did well up until last week. He has been using his hands quite a bit getting ready for a silent option and both of his thumbs are bothering him again at this point. He did buy a Push brace unfortunately wore out very quickly. He remains on Celebrex 200 mg daily. Previous x-rays showed rather significant ST-T changes in both hands. He also has significant arthritic changes at the MP joints of the 2nd 3rd fingers in both hands left greater right. Wished to have injections again today in thumbs. Last ones worked very well. Physical exam: Patient has moderate tenderness to palpation both 1st CMC joints. Has pain with grind to both CMC joints. Redness or warmth noted. 2+ radial pulse in wrists. No numbness or tingling fingers. After ChloraPrep was used on skin 5 mg Kenalog and 1 cc of 0.5% ropivacaine was injected in both 1st CMC joints. Risk infection discussed. 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 Shots 3 months ago worked very well up until a week or 2 ago when he over use them. He would like to make an appointment to come back in 3 months for possible injection we will set this up for him. Not available 06/25/2023 09:21:25 Plan of Treatment Reminders Order Date Submit Date Provider Last Modified By Organization Details Last Modified Time Details Appointments None recorded. Lab None recorded. Referral None recorded. Procedures injection/a spiration joint/bursa (PROC) - in office procedure, administere d by provider 2022 023 [email or web address] In-Office Order, Internal Use Only DO Not Attach Compendium DO Not Attach Compendium, Do Not Delete/merge, [id number] 3 09:43:12 injection/a spiration joint/bursa (PROC) - in office procedure, administere d by provider 2022 023 [email or web address] In-Office Order, Internal Use Only DO Not Attach Compendium DO Not Attach Compendium, Do Not Delete/merge, [id number] 3 08:50:06 Surgeries None recorded. Imaging XR, hand 2022 023 [email or web address] [facility] [place], [address], [place], [address], 3 09:18:04 XR, hip + pelvis, unilateral 2022 023 [email or web address] [facility] [place], [address], [place], [address], 3 08:21:45 Medication Orders Kenalog 10 mg/mL suspension for injection 2022 023 [email or web address] [id number], [address] [place], [address], 3 08:53:22 ropivacaine (PF) 5 mg/mL (0.5 %) injection solution 2022 023 [email or web address] [id number], [address] [place], [address], 3 08:53:31 Kenalog 10 mg/mL suspension for injection 2022 023 [email or web address] [id number], [address] [place], [address], 3 12:57:39 ropivacaine (PF) 5 mg/mL (0.5 %) injection solution 2022 023 [email or web address] [id number], [address] [place], [address], 12:57:39 Patient TargetsNo targets recorded. Patient InstructionsNo instructions recorded. Reason for Referral None Reported. Results Created Date Observation Date Name Description Value Unit Range Abnormal Flag Note LastModifiedBy Organization Detail LastModifiedTime 03/13/20 22 XR, knee No observ ation record ed. [id number] [facility] [place] [address], [place], [address], 11/20/2022 13:36:27 03/26/20 23 XR, hand No observ ation record ed. [facility] [place] [address], [place], [address], 03/26/2023 10:05:01 05/02/20 23 XR, hip + pelvi s, unila teral No observ ation record ed. [facility] [place] [address], [place], [address], 05/02/2023 09:33:56 Result Notes None recorded. Problems Name Problem SNOMED Code Status Onset Date Resolution Date Notes Provider Name and Address Organization Details Recorded Time Heartburn 86445842 Active 2017 Not Available [facility] 3 13:31:47 Ankle pain 171084601 Active Not Available [facility] 3 13:31:47 Sprain of lateral ligament of ankle joint 260829896 Active Not Available [facility] 3 13:31:47 Osteoarthr itis 266738435 Active Not Available [facility] 3 13:31:47 Closed fracture of ankle 54442651 Active Not Available [facility] 3 13:31:47 Pain of right knee joint 8635865311463 00 Active 2021 Not Available [facility] 3 13:31:47 Contusion of foot 48587204 Active 2017 Not Available Replaced by [facility] 3 13:31:47 Pain of bilateral hands 6974782315378 9109 Active 2022 HONG Pichardo null, [facility] 3 08:58:19 Acquired bilateral pes planus 2251241238765 9109 Active 2022 Yvonne Walker [employer] null, [facility] 3 09:53:06 Pain of left hip joint 9825686733152 00 Active 2022 Kimberley Jackson RMA null, [facility] 3 08:54:06 Pain of left hand 4734348096254 03 Active 2022 HONG Pichardo null, [facility] 3 08:46:18 Notes:back/neck problems, ey e problems, headaches, herniated disc, swollen or painful joints, wears glasses Problem Notes None recorded. Procedures Surgical History Date Name Laterality Status Provider Name and Address Organization Details Recorded Time Neck completed Not Available Replaced by [facility] 09/2022 13:30:02 Imaging Results Imaging Date Name Status LastModified by Organiz ation Details LastModified Time 03/13/2022 XR, knee completed [id number] [facility] [place] [address], [place], [address], 11/20/2022 13:36:27 03/26/2023 XR, hand completed [facility] [place] [address], [place], [address], 03/26/2023 10:05:01 05/02/2023 XR, hip + pelvis, unilateral completed [facility] [place] [address], [place], [address], 05/02/2023 09:33:56 Procedure Notes None recorded. Medical Equipment None Reported. Allergies No known drug allergies Medications Name Sig Start Date Stop Date Status Note LastModified by Organization Details LastModified Time celecoxib 200 mg capsule TAKE 1 CAPSULE BY MOUTH ONCE DAILY IN THE MORNING NEEDED FOR PAIN active Not Available Not Available No t Available prednisone 10 mg tablet 03/13 completed Not Available Not Available Not Available doxycycline hyclate 100 mg capsule TAKE 1 CAPSULE BY MOUTH EVERY DAY 05/02 completed Not Available Not Available Not Available Medrol (Leeroy) 4 mg tablets in a dose pack Take 1 package by oral route as directed. 03/13 completed Not Available Not Available Not Available prednisone 20 mg tablet 03/13 completed Not Available Not Available Not Available sildenafil 100 mg tablet TAKE ONE TABLET BY MOUTH APPROXIMA TELY ONE HOUR BEFORE SEXUAL ACTIVITY. DO NOT USE MORE THAN ONE DOSE DAILY 05/02 completed Not Available Not Available Not Available famotidine 20 mg tablet TAKE 1 TABLET BY MOUTH TWICE A DAY 03/13 completed Not Available Not Available Not Available imiquimod 5 % topical cream packet PLEASE SEE ATTACHED FOR DETAILED DIRECTION S active Not Available Not Available No t Available Kenalog 10 mg/mL suspension for injection in office 2022 active [facility]: 0003- [phone]- 20 Not Available Not Available Not Available omeprazole 20 mg capsule,del ayed release Take 1 capsule every day by oral route. 03/13 completed Not Available Not Available Not Available irbesartan 75 mg tablet TAKE 1 TABLET BY MOUTH EVERY DAY active Not Available Not Available No t Available mupirocin 2 % topical ointment APPLY TO AFFECTED AREA TWICE A DAY 05/02 completed Not Available Not Available Not Available testosteron e cypionate 200 mg/mL intramuscul ar oil 03/13 completed Not Available Not Available Not Available levofloxaci n 500 mg tablet 03/13 completed Not Available Not Available Not Available zolpidem 10 mg tablet TAKE 1 TABLET BY MOUTH ON THE NIGHT OF CPAP TITRATION SLEEP APNEA 05/02 completed Not Available Not Available Not Available cefdinir 300 mg capsule TAKE 1 CAPSULE BY MOUTH EVERY 12 HOURS 03/13 completed Not Available Not Available Not Available fluticasone propionate 50 mcg/actuati on nasal spray,suspe nsion SPRAY 2 SPRAY INTRANASA LLY TWICE A DAY ADMINISTE R INTO EACH NOSTRIL active Not Available Not Available No t Available doxycycline hyclate 100 mg tablet TAKE 1 TABLET BY MOUTH TWICE A DAY active Not Available Not Available No t Available duloxetine 60 mg capsule,del ayed release TAKE 1 CAPSULE BY MOUTH EVERY DAY IN THE MORNING active Not Available Not Available No t Available Voltaren 1 % topical gel Apply a small amount to the affected areas twice daily as needed 03/13 completed Not Available Not Available Not Available ropivacaine (PF) 5 mg/mL (0.5 %) injection solution in office 2022 active [facility] [phone] -[phone] Not Available Not Available Not Available Fluvirin 0662-9554 45 mcg (15 mcg x 3)/0.5 mL intramuscul ar suspension 03/13 completed Not Available Not Available Not Available Vitals Date Recorded Body mass index (BMI) Body height Body weight Provider Name and Address Organization Details Last Updated DateTime 03/13/2022 38.2 kg/m2 170.18 cm 412190.54 g Not Available [facility] 11/20/2022 13:31:24 Date Recorded Body height Body mass index (BMI) Body weight Provider Name and Address Organization Details Last Updated DateTime 03/26/2023 170.18 cm 38.5 kg/m2 001973.72 g Kimberley Jackson [facility] [employer] [facility] 03/26/2023 09:15:07 Date Recorded Body height Provider Name an d Address Organization Details Last Updated DateTime 05/02/2023 170.18 cm Kimberley Jackson [facility] [employer] [facility] 05/02/2023 08:53:11 Date Recorded Body height Provider Name an d Address Organization Details Last Updated DateTime 06/25/2023 170.18 cm Kimberley Jackson [facility] 06/25/2023 08:44:56 Social History Question Answer Notes LastModified by Organizat ion Details LastModified Time Tobacco Smoking Status Former Smoker quit 26 Jasmyne kwong, [facility] [employer] [facility] 06/25/2023 08:44:14 What Is Your Level Of Alcohol Consumption? Occasional [id number] Information not available 11/20/2022 Sex: Unknown Functional Status None recorded. Mental Status None recorded. Family History Relationship Description Onset Age of this Age Resolved Age Notes LastModified by Organization Details LastModified Time Father Family history of malignant neoplasm [email or web address] Not available 06/25 08:44:13 Mother Family history of malignant neoplasm [email or web address] Not available 06/25 08:44:13 Brother Diabetes mellitus [id number] Not available 11/20/2022 13:30:04 Sister Diabetes mellitus [id number] Not available 11/20/2022 13:30:04 Medical History Condition Response BLINDNESS N KIDNEY STONES N MRSA N CARPAL TUNNEL SYNDROME N LUNG DISEASE/DISORDER N HISTORY OF DRUG ABUSE N RADIATION / CHEMOTHERAPY N COPD N SPORTS INJURY N ANKLE PAIN N BLOOD DISEASES N SCHIZOPHRENIA N SHINGLES N SHOULDER PAIN N DEPRESSION (INCLUDING POST ) N BOWEL PROBLEMS N STROKE/TIA N ULCERS N KNEE PAIN N BENIGN PROSTATIC HYPERPLASIA N OBESITY N GERD/NAUSEA N ANEURYSM N URINARY/BLADDER/KIDNEY PROBLEMS N CORONARY ARTERY DISEASE (CAD) N ADDICTION CONCERNS N USE OF BLOOD THINNERS N SKIN PROBLEMS N EMPHYSEMA N MUSCLE,JOINT OR BONE PROBLEMS N DVT N STOMACH ULCERS N BLOOD CLOTS N USE OF NSAIDS N CONCUSSION OR SPINAL TRAUMA N NEUROPATHY N AIDS/HIV N FRACTURES N HYPERTENSION N ELBOW PAIN N TOURETTE'S N Metal allergy N ANXIETY DISORDER N BLOOD TRANSFUSION N ANEMIA/BLOOD DISORDER N BIPOLAR DISORDER N BRONCHITIS N OSTEOARTHRITIS N TUBERCULOSIS N FOOT PROBLEM N HEART VALVE DISORDERS N SOFT TISSUE INJURY N ALLERGIES/HAYFEVER N INFECTIOUS DISEASE N HEART ARRHYTHMIA N INSOMNIA N RHEUMATOID ARTHRITIS N HIGH CHOLESTEROL / HYPERLIPIDEMIA N EDEMA N CHRONIC PAIN SYNDROME N CAROTID BLOCKAGE N BACK / NECK PROBLEMS N HAVE YOU BEEN HOSPITALIZED OR SEEN IN [facility] IN THE PAST YEAR ? N BURSITIS N HERNIATED DISC N DIALYSIS N FIBROMYALGIA N OSTEOPOROSIS N ARTHRITIS Y NO SIGNIFICANT PAST MEDICAL HISTORY N PERIPHERAL NEUROPATHY N DIABETES, TYPE N HEARTBURN / REFLUX N HEPATITIS / LIVER DISEASE N GOUT N SLEEP DISORDER N ALZHEIMER'S DISEASE N HERPES N SEIZURES/EPILEPSY N HEADACHES/MIGRAINES N VASCULAR DISEASE N HIP PAIN N Blood Disorder N DIZZINESS N HEAD TRAUMA OR INJURY N HEART DISEASE/HEART PROBLEMS N MULTIPLE SCLEROSIS N CARDIAC ARRHYTHMIA N CANCER: SPECIFY N ANESTHESIA COMPLICATIONS N ATRIAL FIBRILLATION N AUTOIMMUNE DISEASE N Past Encounters Encounter ID Performer Location Encounter Start Date Encounter Closed Date Diagnosis/Indication Diagnosis SNOMED-CT Code Diagnosis ICD10 Code Diagnosis Note [id number] [facility] Hollingsworth [address] [place] [address] 03/13/2022 00:00:00 03/13/2022 10:38:23 [id number] MARÍA Balderrama [facility] [place] [address] [place] [address] 03/26/2023 08:38:34 03/26/2023 10:10:15 Pain of bilateral hands 8400433168 6359298 M79.641 M79.642 Acquired b ilateral pes planus 1032887706 8002589 M21.41 M21.42 [id number] MARÍA Balderrama [facility] [place] [address] [place] [address] 05/02/2023 08:44:01 05/02/2023 12:29:17 Pain of left hip joint 6629671245 28361 M25.261 [id number] MARÍA Balderrama [facility] [place] [address] [place] [address] 06/25/2023 08:42:31 06/25/2023 09:22:21 Pain of left hand 5169406404 21137 M79.642 Health Concerns Section Related Observation LastModified by Organization Detai ls LastModified Time None Recorded Concern Status LastModified by Organization Details LastModified Time None Recorded Advance Directives Directive None Recorded Payers Encounter Date Sequence Insurance Name Policy Number Policy Hurt Covered Member ID Hurt Member ID Guarantor Name 03/26/2023 1 [employer] [id number] Oscar Land [id number] Joseph Land 05/02/2023 1 [employer] [id number] Oscar Land [id number] Joseph Land 06/25/2023 1 [employer] [id number] Oscar Land [id number] Joseph Land
== END 2024-10-12 13:50 | disposition home or self-care (01) ==
LOC: ANHCARD 13:51
PROVIDERS: Visit Provider Family Medicine
DX: I51.9 Heart disease, unspecified (principal); R01.1 Cardiac murmur, unspecified
CPT/HCPCS: C8929; Q9957

== ENCOUNTER 2024-11-09 12:58 | Emergency (ER) | payer OTHER, SELFPAY ==
--- OUTSIDE RECORDS SUMMARY | 2024-11-09 13:02 | XMS_ITS | Continuity of Care Document ---
Author Organization [facility] Address [address] [facility] [address] [place] [address] Phone Care Team Providers Care Private Branch Exchange Service Advisor Name Role Phone Lucas Escalera Unavailable Unavailable Procedures Procedure Date Eye Exam & Treatment Refraction Advance Directives Directive Yes / No Effective Date File Name No Information Encounters Encounter Description Practice Location Reason(s) For Visit Diagnoses Date Provider Providers Copied on Encounter [facility], [address], [place], [place], [id number], [place] tel:[phone] [facility] No Information [address] [facility] [address], [place], [address], [place]. tel:[phone] Family History Family Member Type Diagnosis Age At Onset No Information Payers Payer name Insurance type Covered libertarian ID Authoriza tion(s) No Information Social History Type Description Quantity Date Captured Comments Sex Male Smoking Status No Information Chief Complaint And Reason For Visit No Information Reason For Referral Reason For Referral No Information History Of Present Illness Encounter Date Complaint History Of Prese nt Illness No Information Functional Status Date Functional Assessmen t No Information Instructions Date Instruction Additional Infor mation No Information Assessments Type Assessment Date No Information Patient Care Teams Name Effective Dates (start - stop) Status Members No Information
--- OUTSIDE RECORDS SUMMARY | 2024-11-09 13:02 | XMS_ITS | Clinical Summary ---
Author Organization [facility] Address [address] [facility], [address] [address] Phone Care Team Providers Care Solutions Operator Name Role Phone Dylan Rebolledo MD Primary Care Provider Allergies No known active allergies Medications multiple vitamin with minerals (CENTRUM SILVER) Tablet Take 1 Tab by mouth daily. Active ascorbic acid 500 MG Tablet Take 500 mg by mouth daily. Active Cholecalciferol (VITAMIN D3 PO) Take 1,000 mcg by mouth daily. Active DULoxetine (CYMBALTA) [address] Particles Take 60 mg by mouth daily. Active omeprazole (PRILOSEC) 40 MG CAPSULE DELAYED RELEASE TAKE ONE CAPSULE TWICE DAILY 60 Cap 6 01/10/2017 Active Active Problems Problem Noted Date Diagnosed Date Dysphagia Overview (09/21/2015): mild DJD (degenerative joint disease) Chronic sinusitis Social History Tobacco Use Types Packs/Day Years Used Date Smoking Tobacco: Never Assessed Sex and Gender Information Value Date Recorded Sex Assigned at Not on file Legal Sex Male 11:57 PM CDT Gender Identity Not on file Sexual Orientation Not on file Plan of Treatment Health Maintenance Due Date Last Done Comments Hepatitis C Virus (HCV) Screening 1960 TdaP Immunization 1961 Cologuard 2011 Immunochemical Fecal Occult Blood 2011 Pneumococcal Immunization (5 0+ years) (1 of 1 - PCV) 2011 Zoster Immunization (1 of 2) 2011 PSA Discussion 2016 Influenza Immunization (#1) 2024 SARS-COV-2 Immunization ( season) 2024 Colonoscopy 09/04/2027 09/04/2020, 06/13/2014 Colorectal Cancer Screening 09/04/2027 Respiratory Syncytial Virus (RSV) Immunization (Adult) (1 - 1-dose 75+ series) 2036 09/04/2020, 06/13/2014 Hepatitis B Immunization Aged Out No longer eligible based on patient's age to complete this topic Meningococcal Immunization (ACWY) Aged Out No longer eligible b ased on patient's age to complete this topic Pneumococcal Immunization Combined Aged Out No longer eligible b ased on patient's age to complete this topic Rotavirus Immunization Aged Out No lo nger eligible based on patient's age to complete this topic Procedures Procedure Name Priority Date/Time Associated Diagnosis Comments COLONOSCOPY Routine 09/04/2020 from Last 3 Months or Most Recently Relevant to Health Maintenance Results * HM COLONOSCOPY (09/04/2020) Dominik Gilliam DO PROCEDURE/MINOR SURGICAL ORDERA BLES Final Result from Last 3 Months or Most Recently Relevant to Health Maintenance Care Teams Solutions Operator Relationship Specialty Start Date End Date Dylan Rebolledo MD [address] [id number] PCP - General Family Medicine 09/08/20
--- OUTSIDE RECORDS SUMMARY | 2024-11-09 13:02 | XMS_ITS | Data Portability ---
Author Organization [place] - [facility], Main Office Address [address] [place] [address] Care Team Providers Care Training And Development Director Name Role Phone MONICO MOMIN Primary Care Provider MONICO MOMIN Referring Provider Assessment Encounter Date [...] times because not being able have good home health aide strength. Patient is on Celebrex 200 mg [...] patient more than half of this in pkri-jz-nyik conversation Not available 03/26/2023 10:07:52 05/02/2023 05/02/2023 [...] injury to his kidneys. He may take uhly-mms-kmjotrh Tylenol the Celebrex which would be safe. [...] patient more than half of this in ifwg-qs-qwak conversation Not available 05/02/2023 09:39:04 06/25/2023 06/25/2023 [...] procedure, administere d by provider 2022 023 [email or web address] In-Office Order, Internal Use Only DO Not Attach Compendium DO Not Attach Compendium, Do Not Delete/merge, [id number] 3 08:50:06 injection/a spiration joint/bursa (PROC) - in office procedure, administere d by provider 2022 023 [email or web address] In-Office Order, Internal Use Only DO Not Attach Compendium DO Not Attach Compendium, Do Not Delete/merge, [id number] 3 09:43:12 Surgeries None recorded. Imaging XR, hip + pelvis, unilateral 2022 023 [email or web address] [facility] [place], [address], [place], [address], 3 08:21:45 XR, hand 2022 023 [email or web address] [facility] [place], [address] [facility] [address], [place], [address], 3 09:18:04 Medication Orders Kenalog 10 mg/mL suspension for injection 2022 023 [facility]/Pharmacy #[id number], [address] [place], [address], 3 12:57:39 ropivacaine (PF) 5 mg/mL (0.5 %) injection solution 2022 023 [facility], [address] [place], [address], 3 12:57:39 Kenalog 10 mg/mL suspension for injection 2022 023 [email or web address] [facility]/Pharmacy #2510, [address] [place], [address], 3 08:53:22 ropivacaine (PF) 5 mg/mL (0.5 %) injection solution 2022 023 [email or web address] [facility]/Pharmacy #2510, [address] [place], [address], 3 08:53:31 Patient TargetsNo targets recorded. Patient InstructionsNo instructions recorded. Reason for Referral None Reported. Results Created Date Observation Date Name Description Value Unit Range Abnormal Flag Note LastModifiedBy Organization Detail LastModifiedTime 03/13/20 22 XR, knee No observ ation record ed. [id number] [facility] [place] [address], [place], [address], 11/20/2022 13:36:27 03/26/20 23 XR, hand No observ ation record ed. [facility] [place] [address], [place], [address], 03/26/2023 10:05:01 05/02/20 23 XR, hip + pelvi s, unila teral No observ ation record ed. [facility] [place] [address], [place], [address], 05/02/2023 09:33:56 Result Notes None recorded. Problems Name Problem SNOMED Code Status Onset Date Resolution Date Notes Provider Name and Address Organization Details Recorded Time Heartburn 34183617 Active 2017 Not Available [facility] 3 13:31:47 Ankle pain 672905952 Active Not Available [facility] 3 13:31:47 Sprain of lateral ligament of ankle joint 422947603 Active Not Available [facility] 3 13:31:47 Osteoarthr itis 634028580 Active Not Available [facility] 3 13:31:47 Closed fracture of ankle 72070322 Active Not Available [facility] 3 13:31:47 Pain of right knee joint 9948150774955 00 Active 2021 Not Available [facility] 3 13:31:47 Contusion of foot 61918524 Active 2017 Not Available [facility] 3 13:31:47 Pain of bilateral hands 7111674117063 9109 Active 2022 HONG Pichardo null, [facility] 3 08:58:19 Acquired bilateral pes planus 8349562273153 9109 Active 2022 Yvonne Walker JBOSS DEVELOPER null, [facility] 3 09:53:06 Pain of left hip joint 3930603179256 00 Active 2022 Kimberley Jackson RMA null, [facility] 3 08:54:06 Pain of left hand 5921192720259 03 Active 2022 HONG Pichardo null, [facility] 3 08:46:18 Notes:back/neck problems, ey e problems, headaches, herniated disc, swollen or painful joints, wears glasses Problem Notes None recorded. Procedures Surgical History Date Name Laterality Status Provider Name and Address Organization Details Recorded Time Neck completed Not Available [facility] 09/2022 13:30:02 Imaging Results Imaging Date Name Status LastModified by Organiz ation Details LastModified Time 03/13/2022 XR, knee completed [id number] [facility] [place] [address], [place], [address], 11/20/2022 13:36:27 03/26/2023 XR, hand completed [facility] [place] [address], [place], [address], 03/26/2023 10:05:01 05/02/2023 XR, hip + pelvis, unilateral completed [facility] [place] [address], [place], [address], 05/02/2023 09:33:56 Procedure Notes None recorded. Medical [...] for injection in office [address] [facility]: 0003- 0494- 20 Not Available Not Available [...] injection solution in office [address] [facility] [phone] -[phone]- [phone] Not Available Not Available Not Available Fluvirin 2610-3308 45 mcg (15 mcg x 3)/0.5 mL intramuscul ar suspension 03/13 completed Not Available Not Available Not Available Vitals Date Recorded Body mass index (BMI) Body height Body weight Provider Name and Address Organization Details Last Updated DateTime 11/20/2022 38.2 kg/m2 170.18 cm 578636.54 g Not Available [facility] 11/20/2022 13:31:24 Date Recorded Body height Body mass index (BMI) Body weight Provider Name and Address Organization Details Last Updated DateTime 03/26/2023 170.18 cm 38.5 kg/m2 308837.72 g Kimberley Jackson [facility] [employer] [facility] 03/26/2023 09:15:07 Date Recorded Body height Provider Name an d Address Organization Details Last Updated DateTime 05/02/2023 170.18 cm Kimberley Jackson [facility] [employer] [facility] 05/02/2023 08:53:11 Date Recorded Body height Provider Name an d Address Organization Details Last Updated DateTime 06/25/2023 170.18 cm Kimberley Jackson [facility] [employer] [facility] 06/25/2023 08:44:56 Social History Question Answer Notes LastModified by Organizat ion Details LastModified Time Tobacco Smoking Status Former Smoker quit 26 Jasmyne kwong, [facility] [employer] [facility] 06/25/2023 08:44:14 What Is Your Level Of Alcohol Consumption? Occasional [id number] Information not available 11/20/2022 Sex: Unknown Functional Status None recorded. Mental Status None recorded. Family History Relationship Description Onset Age of this Age Resolved Age Notes LastModified by Organization Details LastModified Time Father Family history of malignant neoplasm [email or web address] Not available 06/25 08:44:13 Mother Family history of malignant neoplasm [email or web address] Not available 06/25 08:44:13 Brother Diabetes mellitus [id number] Not available 11/20/2022 13:30:04 Sister Diabetes mellitus [id number] Not available 11/20/2022 13:30:04 Medical History Condition Response BLINDNESS N KIDNEY STONES N MRSA N CARPAL TUNNEL SYNDROME N LUNG DISEASE/DISORDER N HISTORY OF DRUG ABUSE N RADIATION / CHEMOTHERAPY N COPD N SPORTS INJURY N ANKLE PAIN N BLOOD DISEASES N SCHIZOPHRENIA N SHINGLES N SHOULDER PAIN N BOWEL PROBLEMS N DEPRESSION (INCLUDING POST ) N STROKE/TIA N ULCERS N KNEE PAIN [...] FOOT PROBLEM N HEART VALVE DISORDERS N ALLERGIES/HAYFEVER N SOFT TISSUE INJURY N INFECTIOUS DISEASE N HEART ARRHYTHMIA N INSOMNIA N HIGH CHOLESTEROL / HYPERLIPIDEMIA N RHEUMATOID ARTHRITIS N EDEMA N CHRONIC PAIN SYNDROME N CAROTID BLOCKAGE N BACK / NECK PROBLEMS N HAVE YOU BEEN HOSPITALIZED OR SEEN IN [facility] IN THE PAST YEAR ? N BURSITIS N HERNIATED DISC N DIALYSIS N FIBROMYALGIA N OSTEOPOROSIS N ARTHRITIS Y NO SIGNIFICANT PAST MEDICAL HISTORY N PERIPHERAL NEUROPATHY N DIABETES, TYPE N HEARTBURN / REFLUX N HEPATITIS / LIVER DISEASE N GOUT N ALZHEIMER'S DISEASE N SLEEP DISORDER N HERPES N HEADACHES/MIGRAINES N SEIZURES/EPILEPSY N VASCULAR DISEASE N Blood Disorder N HIP PAIN N DIZZINESS N HEAD TRAUMA OR INJURY N HEART DISEASE/HEART PROBLEMS N MULTIPLE SCLEROSIS N CANCER: SPECIFY N CARDIAC ARRHYTHMIA N ANESTHESIA COMPLICATIONS N ATRIAL FIBRILLATION N AUTOIMMUNE DISEASE N Past Encounters Encounter ID Performer Location Encounter Start Date Encounter Closed Date Diagnosis/Indication Diagnosis SNOMED-CT Code Diagnosis ICD10 Code Diagnosis Note [id number] [facility] [address] [place] [address] 03/13/2022 00:00:00 03/13/2022 10:38:23 [id number] MARÍA Balderrama [facility] [place] [address] [place] [address] 03/26/2023 08:38:34 03/26/2023 10:10:15 Pain of bilateral hands 3105868136 4851763 M79.641 M79.642 Acquired b ilateral pes planus 2595596608 3102136 M21.41 M21.42 [id number] MARÍA Balderrama [facility] [place] [address] [place] [address] 05/02/2023 08:44:01 05/02/2023 12:29:17 Pain of left hip joint 4796172747 46172 M25.801 [id number] MARÍA Balderrama [facility] [place] [address] [place] [address] 06/25/2023 08:42:31 06/25/2023 09:22:21 Pain of left hand 1774931776 48631 M79.642 Health Concerns Section Related Observation LastModified by Organization Detai ls LastModified Time None Recorded Concern Status LastModified by Organization Details LastModified Time None Recorded Advance Directives Directive None Recorded Payers Encounter Date Sequence Insurance Name Policy Number Policy Hurt Covered Member ID Hurt Member ID Guarantor Name 03/26/2023 1 [employer] [id number] Oscar Land [id number] Joseph Land 05/02/2023 1 [employer] [id number] Oscar Land [id number] Joseph Land 06/25/2023 1 [employer] [id number] Oscar Land [id number] Joseph Land
[2024-11-09 13:10] VITALS: BP 144/110; PULSE 97; RESP 16; TEMP 36.4; O2SAT 99
[2024-11-09 14:19] VITALS: BP 119/63; PULSE 85; RESP 16; O2SAT 97
[2024-11-09] MEDS: ONDANSETRON INJ 4 MG/2 ML VIAL IV PUSH (14:20)
[2024-11-09] MEDS: KETOROLAC 30 MG/ML VIAL (*BKC) IV PUSH (14:22)
[2024-11-09] MEDS: MORPHINE SULFATE (*CRX) 4 MG/ML INJ IV PUSH (14:23)
[2024-11-09] MEDS: dexAMETHasone SOD PHOS INJ 10 MG/ML 1 ML VIAL IV PUSH (14:23)
--- OUTSIDE RECORDS SUMMARY | 2024-11-09 14:40 | XMS_ITS | Clinical Summary ---
Author Organization [facility] Address [address] [place] [address] Care Team Providers Care Flat Cutter Name Role Phone Dylan Rebolledo MD Primary Care Provider [phone] Allergies No known active allergies Medications omeprazole (PriLOSEC) 40 mg capsule Take 1 capsule (40 mg total) by mouth 2 (two) times a day 7 Active irbesartan (AVAPRO) 75 mg tablet Take 1 tablet (75 mg total) by mouth daily Active fluticasone propionate (FLONASE) 50 mcg/actuation nasal spray SPRAY 2 SPRAY INTRANASALLY TWICE A DAY ADMINISTER INTO EACH NOSTRIL Active DULoxetine DR (CYMBALTA) 60 mg capsule Take 1 capsule (60 mg total) by mouth every morning Active celecoxib (CeleBREX) 200 mg capsule TAKE 1 CAPSULE BY MOUTH ONCE DAILY IN THE MORNING NEEDED FOR PAIN Active multivitamin-mi nerals-lutein tablet Take 1 tablet by mouth daily Active cholecalciferol (VITAMIN D-3) 1,000 unit capsule Take 1,000 mcg by mouth daily Active ascorbic acid 500 mg tablet,chewable Take 2 tablet/chew tab (1,000 mg total) by mouth daily Active ferrous sulfate 325 mg (65 mg of elemental iron) tabletIndicatio ns:Iron Deficiency Anemia Take 1 tablet (325 mg total) by mouth daily with breakfast Active Active Problems Problem Noted Date Diagnosed Date Ankle pain 10/12/2024 Chronic sinusitis 10/12/2024 Closed fracture of ankle 10/12/2024 DJD (degenerative joint disease) 10/12/2024 Osteoarthritis 10/12/2024 Dysphagia 10/12/2024 Overview (10/12/2024): mild Sprain of lateral ligament of ankle joint 2024 Pain of left hip joint 05/02/2023 Acquired pes planus of both feet 03/26/2023 Pain in both hands 03/26/2023 Arthralgia of right knee 03/13/2022 Contusion of foot 05/27/2018 Heartburn 05/27/2018 Encounters Date Type Department Care Team Description 10/12/2024 7:42 AM BROADCAST SUPERVISOR - 10/12/2024 11:59 PM BROADCAST SUPERVISOR Hospital Encounter [facility] [address] [place] [address] Arthritis of carpometacarpal (CMC) joints of both thumbs Discharge Disposition: Discharge to home or self care 10/12/2024 7:30 AM BROADCAST SUPERVISOR Office Visit [facility] Orthopaedic Surgery [address] [facility] [address] [place] [address] [place] [address] Ilya Dee MD Arthritis of carpometacarpal (CMC) joints of both thumbs (Primary Dx); Arthritis of carpometacarpal (CMC) joint of left thumb; Arthritis of carpometacarpal (CMC) joint of right thumb from Last 3 Months Surgical History Surgery Date Site/Laterality Comments CERVICAL FUSION N/A Medical History Medical History Date Comments Arthritis Depression Migraines Obesity Sleep apnea Family History Medical History Relation Name Comments Diabetes Brother Arthritis Daughter Arthritis Father Cancer Father Heart disease Father Hypertension Father Cancer Mother Heart disease Mother Hypertension Mother Kidney disease Mother Diabetes Sister Relation Name Status Comments Brother Daughter Father Mother Sister Social History Tobacco Use Types Packs/Day Years Used Date Smoking Tobacco: Former Cigarettes Smokeless Tobacco: Never Tobacco Cessation:Counseling Given: Not Answered Comments Unknown Sex and Gender Information Value Date Recorded Sex Assigned at Not on file Legal Sex Female 10:23 AM BROADCAST SUPERVISOR Gender Identity Not on file Sexual Orientation Not on file Obstetrics History Last Filed Vital Signs Vital Sign Reading Time Taken Comments Blood Pressure - - Pulse - - Temperature - - Respiratory Rate - - Oxygen Saturation - - Inhaled Oxygen Concentration - - Weight 107 kg (236 lb) 10/12/2024 8:20 AM BROADCAST SUPERVISOR Height 170.2 cm (5' 7 ) 10/12/2024 8:20 AM BROADCAST SUPERVISOR Body Mass Index 36.96 10/12/2024 8:20 AM BROADCAST SUPERVISOR Plan of Treatment Health Maintenance Due Date Last Done Comments Breast Cancer Screening-Mammogram 1961 Cervical Cancer Screening 1961 Colon Cancer Screening-Colonoscopy 1961 Depression Screening 1961 Hepatitis C Screening 1961 Hepatitis B Screening 1979 Regular Well Visit/Exam 18-64 1979 Zoster Vaccine (1 of 2) 2011 DTaP/Tdap/Td Vaccine (2 - Td or Tdap) 08/27/2024 08/27/2014 Influenza Vaccine Completed 06/12/2024, , 08/23/2022, Additional history exists Pneumococcal vaccine <65 Aged Out No longer eligible based on patient's age to complete this topic Procedures Procedure Name Priority Date/Time Associated Diagnosis Comments XR WRIST BILATERAL 3 OR MORE VIEWS Schedule Routine, Read Routine (OP Routine) 10/12/2024 7:58 AM BROADCAST SUPERVISOR Arthritis of carpometacarpal (CMC) joints of both thumbs from Last 3 Months Results * XR Wrist Bilateral 3 or More Views (10/12/2024 7:58 AM BROADCAST SUPERVISOR) Anatomical Region Laterality Modality Upper Extremities, Wrist Compute d Radiography 10/12/2024 8:03 AM BROADCAST SUPERVISOR Impressions 10/12/2024 8:03 AM BROADCAST SUPERVISOR Moderate right and severe left 1st carpometacarpal and triscaphe joint osteoarthritis. Electronically signed by: Adrián Sheehan M.D. Narrative 10/12/2024 8:03 AM BROADCAST SUPERVISOR EXAMINATION: XR WRIST BILATERAL 3 OR MORE VIEWS HISTORY: JOINT PAIN, WRIST COMPARISON: None available FINDINGS: There is no acute fracture or dislocation. On the right, there is moderate 1st carpometacarpal and moderate triscaphe joint and radiocarpal osteoarthritis. Left, there is severe 1st carpometacarpal and triscaphe joint osteoarthritis and mild to moderate radiocarpal joint osteoarthritis. Additionally, there is moderate to severe bilateral 2nd metacarpophalangeal and moderate 3rd metacarpophalangeal joint osteophytes. There is mild bilateral ulnar negative variance. Procedure Note Adrián Sheehan MD - 10/12/2024 EXAMINATION: XR WRIST BILATERAL 3 OR MORE VIEWS HISTORY: JOINT PAIN, WRIST COMPARISON: None available FINDINGS: There is no acute fracture or dislocation. On the right, there is moderate 1st carpometacarpal and moderate triscaphe joint and radiocarpal osteoarthritis. Left, there is severe 1st carpometacarpal and triscaphe joint osteoarthritis and mild to moderate radiocarpal joint osteoarthritis. Additionally, there is moderate to severe bilateral 2nd metacarpophalangeal and moderate 3rd metacarpophalangeal joint osteophytes. There is mild bilateral ulnar negative variance. IMPRESSION: Moderate right and severe left 1st carpometacarpal and triscaphe joint osteoarthritis. Electronically signed by: Adrián Sheehan M.D. Ilya Dee MD IMG XR PROCEDURES Final Resul t from Last 3 Months Insurance HEALTHCARE O [facility] O Care Teams Flat Cutter Relationship Specialty Start Date End Date Dylan Rebolledo MD [address] [id number] PCP - General Family Medicine 10/12/24
--- OUTSIDE RECORDS SUMMARY | 2024-11-09 14:40 | XMS_ITS | Clinical Summary ---
Author Organization [facility] Address [address] [facility], [address] [address] Phone Care Team Providers Care Air Crew Member Name Role Phone Dylan Rebolledo MD Primary [...] Recently Relevant to Health Maintenance Care Teams Air Crew Member Relationship Specialty Start Date End Date Dylan Rebolledo MD [address] [id number] PCP - General Family Medicine 09/08/20
--- OUTSIDE RECORDS SUMMARY | 2024-11-09 14:40 | XMS_ITS | Continuity of Care Document ---
Author Organization [facility] Address [address] [facility] [address] [facility] [address] [place] [address] Phone Care Team Providers Care Hydrodynamicist Name Role Phone Lucas Escalera Unavailable Unavailable Procedures Procedure Date Eye Exam & Treatment Refraction Advance Directives Directive Yes / No Effective Date File Name No Information Encounters Encounter Description Practice Location Reason(s) For Visit Diagnoses Date Provider Providers Copied on Encounter [facility], [address], [place], [place], [id number], [place] tel:[phone] [facility] No Information [address] [facility] [address], [place], [address], [place]. tel:[phone] Family History Family Member Type Diagnosis Age At Onset No Information Payers Payer name Insurance type Covered democrat ID Authoriza tion(s) No Information Social History [...]
--- OUTSIDE RECORDS SUMMARY | 2024-11-09 14:40 | XMS_ITS | Patient Health Record ---
Author Organization [facility] Address [address] [place] [address] [address] Care Team Providers Care Sewer And Inspector Name Role Phone Dylan Rebolledo Primary Care Provider Unavailab luciana Baltazar DPM, Mark Unavailable [phone] ALLERGIES No Known Allergies REASON FOR REFERRAL No Information MEDICATIONS Medication SIG (Take, Route, Frequency, Duration) Notes Start Date End Date Status Vitamin E 100 UNIT 1 tablet Orally Once a day Active Vitamin D3 25 MCG (1000 UT) 1 tablet Ora lly Once a day Active Ferrous Sulfate 325 (65 Fe) MG 1 tablet Orally Daily Active Fluticasone Propionate HFA 110 MCG/ACT 2 puffs Inhalation Twice a day Active Multivitamin - 1 tablet Orally Once a day Active CeleBREX 100 MG 1 capsule Orally Onc e a day Active Fexofenadine HCl 60 MG 1 tablet Orally T wice a day Active DULoxetine HCl 30 MG 1 capsule Orally On ce a day Active Omeprazole 40 MG as directed Orally O nce a day Active Irbesartan 75 MG 1 tablet Orally Once a day Active Vitamin C 250 MG 1 tablet Orally Once a day Active Vitamin B12 100 MCG 1 tablet Orally Once a day Active SOCIAL HISTORY Tobacco Use: Social History Observation Description Date Details (start date - stop date) Former Smoker NA - 09/22/1999 Sex Assigned At : Social History Observation Description Sex Assigned At Unknown Tobacco Use: Question Answer Notes Patient is a: former smoker When did you stop smoking? 09/22/1999 Alcohol screening: Question Answer Notes Did you have a drink contain ing alcohol in the past year? Yes How often did you have a dri nk containing alcohol in the past year? Two to four times a month (2 points) How many drinks did you have on a typical day when you were drinking in the past year? 1 or 2 (0 points) How often did you have six o r more drinks on one occasion in the past year? Never (0 points) Points 2 Interpretation Negative PROBLEMS Problem Type ICD Code Onset Dates Problem Status W/U Status Risk SNOMED Code Notes Problem Plantar fascial fibromatosis (M72.2) 1 Active confirmed 41693079 Problem Pain in left foot (M79.672) 1 Active confirmed [id number] PLAN OF TREATMENT No Information Insurance Providers Payer Name Payer Address Payer Phone Subscriber Number Group Number Insured Name Patient Relationship to Insured Coverage Start Date Coverage End Date [employer] [address] [place] [address] [id number] Oscar Land Spouse - patient is the spouse of the insured MEDICAL (GENERAL) HISTORY Medical History History ICD Code high blood pressure acid reflux depression Surgical History Surgery Date(Month/Year) Neck fusion right knee surgery
--- OUTSIDE RECORDS SUMMARY | 2024-11-09 14:40 | XMS_ITS | Referral Summary ---
Author Organization [facility] Address [address] [place] [address] Care Team Providers Care Field Reporter Name Role Phone Dylan Rebolledo MD Primary Care Provider [phone] Encounters Date Type Department Care Team Description 10/12/2024 7:42 AM RECRUITING ASSISTANT - 10/12/2024 11:59 PM RECRUITING ASSISTANT Hospital Encounter [facility] Radiology [facility] [address] [place] [address] Arthritis of carpometacarpal (CMC) joints of both thumbs Discharge Disposition: Discharge to home or self care 10/12/2024 7:30 AM RECRUITING ASSISTANT Office Visit [facility] Orthopaedic Surgery [address] [place] [address] 6[address] [place] [address] [place] [address] Ilya Dee MD Arthritis of carpometacarpal (CMC) joints of both thumbs (Primary Dx); Arthritis of carpometacarpal (CMC) joint of left thumb; Arthritis of carpometacarpal (CMC) joint of right thumb from Last 3 Months Allergies No known active allergies Medications omeprazole [...] 03/13/2022 Contusion of foot 05/27/2018 Heartburn 05/27/2018 Social History Tobacco Use Types Packs/Day Years Used Date Smoking Tobacco: Former Cigarettes Smokeless Tobacco: Never Tobacco Cessation:Counseling Given: Not Answered Comments Unknown Sex and Gender Information Value Date Recorded Sex Assigned at Not on file Legal Sex Female 10:23 AM RECRUITING ASSISTANT Gender Identity Not on file Sexual Orientation Not on file Last Filed Vital Signs Vital Sign Reading Time Taken Comments Blood Pressure - - Pulse - - Temperature - - Respiratory Rate - - Oxygen Saturation - - Inhaled Oxygen Concentration - - Weight 107 kg (236 lb) 10/12/2024 8:20 AM RECRUITING ASSISTANT Height 170.2 cm (5' 7 ) 10/12/2024 8:20 AM RECRUITING ASSISTANT Body Mass Index 36.96 10/12/2024 8:20 AM RECRUITING ASSISTANT Plan of Treatment Not on file Procedures Procedure Name Priority Date/Time Associated Diagnosis Comments XR WRIST BILATERAL 3 OR MORE VIEWS Schedule Routine, Read Routine (OP Routine) 10/12/2024 7:58 AM RECRUITING ASSISTANT Arthritis of carpometacarpal (CMC) joints of both thumbs from Last 3 Months Results * XR Wrist Bilateral 3 or More Views (10/12/2024 7:58 AM RECRUITING ASSISTANT) Anatomical Region Laterality Modality Upper Extremities, Wrist Compute d Radiography 10/12/2024 8:03 AM RECRUITING ASSISTANT Impressions 10/12/2024 8:03 AM RECRUITING ASSISTANT Moderate right and severe left 1st carpometacarpal and triscaphe joint osteoarthritis. Electronically signed by: Adrián Sheehan M.D. Narrative 10/12/2024 8:03 AM RECRUITING ASSISTANT EXAMINATION: XR WRIST BILATERAL 3 OR MORE [...] osteoarthritis. Electronically signed by: Adrián Sheehan M.D. Ilay Dee MD IMG XR PROCEDURES Final Resul t from Last 3 Months Insurance Care Teams Field Reporter Relationship Specialty Start Date End Date Dylan Rebolledo MD [address] [address] PCP - General Family Medicine 10/12/24
--- NOTE | 2024-11-09 15:21 | ED.BACK ---
HPI - Back Pain/Injury General Chief Complaint: Back Pain/Injury Stated Complaint: back pain Time Seen by Provider: 11/09/24 13:57 Source: patient and family Mode of arrival: ambulatory Limitations: no limitations History of Present Illness HPI Narrative: 64-year-old the with the complaints of low back pain for past several days. Patient states he has seen Dr. Maya recently and is scheduled for surgery in next few weeks , he states he is unable to get comfortable has been take tylenol and his ' s oxycodone with no relief . No bladder or bowel problems .Denies any recent Trauma .No fever or chills. MD elicited complaint: back pain Pertinent past history: prior back pain Onset (ago): week(s) Timing: constant Severity: moderate Quality: aching Location: lumbar spine Radiation: none Exacerbating factors: none Relieving factors: none Associated symptoms: denies other symptoms Related Data Home Medications ?Medication ?Instructions ?Recorded ?Confirmed ?Last Taken ?Type ascorbic acid (vitamin C) 1,000 mg 1 g PO DAILY 08/28/20 07/16/24 09/03/20 History tablet cyanocobalamin (vitamin B-12) 1,000 mcg PO DAILY 08/28/20 07/16/24 09/03/20 History 1,000 mcg tablet (Vitamin B-12) vitamin E mixed 400 unit capsule 400 unit PO DAILY 08/28/20 07/16/24 09/03/20 History tgeclbnxiahk-czkzyjdo-lcnvwh 1 tablet PO DAILY 10/02/20 07/16/24 Unknown History tablet (Multivitamin 50 Plus tablet) omeprazole 20 mg capsule,delayed 20 mg PO DAILY 11/19/21 07/16/24 Unknown History release ergocalciferol (vitamin D2) 1,000 2,000 unit PO DAILY 05/17/24 07/16/24 Unknown History unit capsule Allergies Allergy/AdvReac Type Severity Reaction Status Date / Time No Known Allergies Allergy Verified 11/09/24 13:16 Review of Systems Review of Systems: All systems reviewed & are unremarkable except as noted in HPI and below Constitutional: Constitutional: Reports no additional constitutional complaints Eyes: Eyes: Reports no additional eye complaints ENT: Reports system reviewed and no additional complaints, except as documented Cardiovascular: Cardiovascular: Reports no additional cardiovascular complaints Respiratory: Respiratory: Reports no additional respiratory complaints Gastrointestinal: Gastrointestinal: Reports no additional gastrointestinal complaints Musculoskeletal: Musculoskeletal: Reports as per [facility] Past Medical History Medical History Cardiac murmur new murmur 09/20/2024. Echo 10/12/2024 with ejection fraction 60-65% with normal diastolic function and mild to moderate mitral valve regurgitation. BMI 38.0-38.9,adult Low ferritin ferritin 21 01/07/2023. Iron 70, 23% saturation, ferritin 29 on 03/03/2024. Ferritin 62 on 09/06/2024. Male erectile dysfunction, unspecified (~01/13/23) BMI 39.0-39.9,adult Obesity (BMI 30-39.9) Hypogonadism male (01/07/23) testosterone low at 199 with free testosterone 38 on 01/07/2023. Mild diastolic dysfunction (~04/2022) Essential hypertension (~06/2022) Central sleep apnea (05/20/22) index of 6.0 on home sleep study with oxygen desaturation to 75% on 05/20/2022. Schedule CPAP titration and echocardiogram. Echocardiogram with mild diastolic dysfunction with ejection fraction normal at 60 to 65% on 06/14/2022. BMI 37.0-37.9, adult Hypersomnia Snoring Dysphagia Sleep-disordered breathing Uvular hypertrophy Laryngopharyngeal reflux (LPR) Nasal polyps Chronic sinusitis PND (post-nasal drip) Hypertrophy of both inferior nasal turbinates Nasal septal deviation Nasal congestion Nasal obstruction BMI 36.0-36.9,adult Bilateral chronic knee pain Gastric ulcer Adenomatous colon polyp Acute recurrent maxillary sinusitis Exposure to COVID-19 virus Osteoarthritis involving multiple joints on both sides of body GERD (gastroesophageal reflux disease) normal EGD with Dr. Gilliam on 10/19/2020 Vitamin D deficiency, unspecified Level low at 29 on 01/07/2023. Vitamin-D low at 27 on 03/03/2024. Level normal at 34 on 09/06/2024. Vitamin B12 deficiency anemia Level normal at 936 with hemoglobin 13.5 and folic acid 21.2 on 01/07/2023. Normal at 1099 with hemoglobin 13.3 and folic acid 21.2 on 03/03/2024. Seasonal allergic rhinitis Acute recurrent sinusitis Migraine Depression Surgical History Surgical History H/O knee surgery H/O neck surgery Family History Family History Mother , age 89 Breast cancer Heart valve disorder Father , age 90 Cancer Heart disease Arthritis Social History Social History Smoking packs per day: 1 Smoking cigarettes per day: 20.0 Years smoked: 15 Smoking pack-years: 15.00 Smoking status: Former smoker Tobacco type: cigarettes Second hand tobacco smoke exposure: No Smoking end date: 09/22/99 Alcohol intake: current Drinks per week: 1 Alcohol use details: beer and vodka seldom Substance use: never Substance use type: does not use Do You Feel Safe in your Home?: Yes Lack of Transportation: No Lack of Food: Never True Current Housing: I Have Housing Concerned About Future Housing: No Difficulty Paying Gas/Electric Bills: No Difficulty Paying for Meds: No Currently Unemployed: No Education: Associate Degree Difficulty w/ Childcare or Family Care: No Living arrangements: with family 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 Gender identity (if verbalized by the patient): Male Spiritual care concerns: No Exam Narrative: GENERAL: Well-appearing, well-nourished, and in no acute distress. HEAD: Normocephalic, atraumatic. EYES: PERRLA and EOM NECK: Supple. CHEST: Clear to auscultation. No respiratory distress. HEART: Regular rate and rhythm. No murmur heard. Normal peripheral pulses. ABDOMEN: Soft, nontender, nondistended, normal active bowel sounds. EXTREMITIES: Normal range of motion. No edema. SKIN: Warm, dry, no rash. NEURO: No focal deficits. Alert and oriented x3. PSYCH: Normal mood and affect. Course Course Emergency Course: Pain has much improved after medication. I discussed with michael Gan to start steroids and pt can be discharged home with pain meds . i did inform pt about taking steroids and pain meds and follow up.He does feel comfortable going home. Vital Signs Vital signs: Vital Signs Temperature 36.4 C L 11/09/24 13:10 Pulse Rate 97 11/09/24 13:10 Respiratory Rate 16 11/09/24 13:10 Blood Pressure 144/110 H 11/09/24 13:10 Pulse Oximetry 99 11/09/24 13:10 Oxygen Delivery Room Air 11/09/24 13:10 Temperature 36.4 C L 11/09/24 13:10 Pulse Rate 85 11/09/24 14:19 Respiratory Rate 16 11/09/24 14:19 Blood Pressure 119/63 11/09/24 14:19 Pulse Oximetry 97 11/09/24 14:19 Oxygen Delivery Room Air 11/09/24 13:10 Discharge Plan Discharge Clinical Impression: Lumbar back pain Patient Disposition: Home, Self-Care Condition: Stable Instructions: Back Pain (ED) Patient Language: Argentine Prescriptions: New oxycodone-acetaminophen [Percocet] 5-325 mg tablet 1 tablet PO Q6H PRN (Reason: pain) 5 Days Qty: 20 0RF methylprednisolone [Medrol (Leeroy)] 4 mg tablets,dose pack See Rx Instructions .ROUTE .COMPLEX Qty: 21 0RF Rx Instructions: for 6 days No Action omeprazole 20 mg capsule,delayed release(DR/EC) 20 mg PO DAILY mupirocin 2 % ointment 1 applic topical BID Qty: 22 0RF ascorbic acid (vitamin C) 1,000 mg Tablet 1 g PO DAILY cyanocobalamin (vitamin B-12) [Vitamin B-12] 1,000 mcg Tablet 1,000 mcg PO DAILY vitamin E mixed [Natural Vitamin E] 400 unit Capsule 400 unit PO DAILY Multivitamin 50 Plus Tablet 1 tablet PO DAILY azelastine 137 mcg (0.1 %) aerosol,spray 1 spray intranasal Q12H Qty: 30 3RF Rx Instructions: administer into each nostril fluticasone propionate 50 mcg/actuation spray,suspension 2 spray intranasal BID Qty: 15.8 11RF Rx Instructions: administer into each nostril duloxetine 60 mg capsule,delayed release(DR/EC) 60 mg PO . q.a.m. Qty: 90 3RF ergocalciferol (vitamin D2) 1,000 unit capsule 2,000 unit PO DAILY irbesartan 75 mg tablet 75 mg PO DAILY Qty: 30 11RF celecoxib 200 mg capsule 200 mg PO BID PRN (Reason: pain) Qty: 180 3RF Rx Instructions: rocha pay with good Rx discount $48.00 Follow-up/Referrals: Dylan Rebolledo MD [Primary Care Provider] - Paul Maya MD [Physician] - Time of Disposition: 15:33
--- NOTE | 2024-11-09 15:49 | PC.NURSE ---
This RN went in room to d/c pt. IV removed. D/c instructions explained. Pt. sat up in bed and states the pain is coming back. Pt. and pt. have additional questions for doc. Dr. Ring notified and to bedside.
[2024-11-09] MEDS: oxyCODONE/ACETAMINOPHEN (*CRX) 10-325 MG TABLET 1 TAB PO (15:55)
[2024-11-09 17:00] VITALS: BP 123/68; PULSE 79; RESP 16; O2SAT 99
== END 2024-11-09 17:31 | disposition home or self-care (01) ==
PROVIDERS: Emergency Provider Family Medicine; PCP Family Medicine
DX: M54.50 Low back pain, unspecified (principal); I10 Essential (primary) hypertension; G47.30 Sleep apnea, unspecified; M19.90 Unspecified osteoarthritis, unspecified site; K21.9 Gastro-esophageal reflux disease without esophagitis; F32.A Depression, unspecified
CPT/HCPCS: 96374; 96375; 99284; A9270; J1100; J1885; J2270; J2405

== ENCOUNTER 2024-11-25 08:51 | Outpatient (CLI) | payer OTHER, SELFPAY ==
--- OUTSIDE RECORDS SUMMARY | 2024-11-25 09:29 | XMS_ITS | Continuity of Care Document ---
Author Organization [facility] Address [address] [facility] [address] [facility] [address] [place] [address] Phone Care Team Providers Care Day Care Teacher Name Role Phone Lucas Escalera Unavailable Unavailable Procedures Procedure Date Eye Exam & Treatment Refraction Advance Directives Directive Yes / No Effective Date File Name No Information Encounters Encounter Description Practice Location Reason(s) For Visit Diagnoses Date Provider Providers Copied on Encounter [facility], [address] [place], [place], [id number], [place] tel:[phone] [facility] No Information [address] [employer] [facility] [address], [place], [address], [place]. tel:[phone] Family History Family Member Type Diagnosis Age At Onset No Information Payers Payer name Insurance type Covered constitution party ID Authoriza tion(s) No Information Social History [...]
--- OUTSIDE RECORDS SUMMARY | 2024-11-25 09:29 | XMS_ITS | Clinical Summary ---
Author Organization [facility] Address [address] [facility] [facility], [address] [address] Phone Care Team Providers Care Senior Electronics Technician Name Role Phone Dylan Rebolledo MD Primary [...] Recently Relevant to Health Maintenance Care Teams Senior Electronics Technician Relationship Specialty Start Date End Date Dylan Rebolledo MD [address] [id number] PCP - General Family Medicine 09/08/20
--- OUTSIDE RECORDS SUMMARY | 2024-11-25 09:29 | XMS_ITS | Data Portability ---
Author Organization [place] - [facility], Main Office Address [address] [place] [address] Care Team Providers Care Direct Service Provider Name Role Phone MONICO MOMIN Primary Care Provider [phone] MONICO MOMIN Referring Provider Assessment Encounter Date [...] times because not being able have good autocutter strength. Patient is on Celebrex 200 mg [...] patient more than half of this in fwah-cb-ilby conversation Not available 03/26/2023 10:07:52 05/02/2023 05/02/2023 [...] injury to his kidneys. He may take kymz-xlw-wxgxbpk Tylenol the Celebrex which would be safe. [...] patient more than half of this in flpc-fo-zzvi conversation Not available 05/02/2023 09:39:04 06/25/2023 06/25/2023 [...] procedure, administere d by provider 2022 023 [email or web address] In-Office Order, Internal Use Only DO Not Attach Compendium DO Not Attach Compendium, Do Not Delete/merge, [id number] 3 08:50:06 injection/a spiration joint/bursa (PROC) - in office procedure, administere d by provider 2022 023 [email or web address] In-Office Order, Internal Use Only DO Not Attach Compendium DO Not Attach Compendium, Do Not Delete/merge, [id number] 3 09:43:12 Surgeries None recorded. Imaging XR, hip + pelvis, unilateral 2022 023 [email or web address] [facility] [place], [address], [place], [address], 3 08:21:45 XR, hand 2022 023 [email or web address] [facility] [place], [address] [facility] [address], [place], [address], 3 09:18:04 Medication Orders Kenalog 10 mg/mL suspension for injection 2022 023 [email or web address]/Pharmacy #[id number], [address] [place], [address], 3 12:57:39 ropivacaine (PF) 5 mg/mL (0.5 %) injection solution 2022 023 [facility], [address] [place], [address], 3 12:57:39 Kenalog 10 mg/mL suspension for injection 2022 023 [email or web address] [facility]/Pharmacy #2510, [address] [place], [address], 3 08:53:22 ropivacaine (PF) 5 mg/mL (0.5 %) injection solution 2022 023 [facility]/Pharmacy #2510, [address] [place], [address], 3 08:53:31 Patient TargetsNo targets recorded. Patient InstructionsNo instructions recorded. Reason for Referral None Reported. Results Created Date Observation Date Name Description Value Unit Range Abnormal Flag Note LastModifiedBy Organization Detail LastModifiedTime 03/13/20 22 XR, knee No observ ation record ed. [id number] [facility] [place] [address], [place], [address], 11/20/2022 13:36:27 03/26/20 23 XR, hand No observ ation record ed. [facility] [place] [address], [place], [address], 03/26/2023 10:05:01 05/02/20 23 XR, hip + pelvi s, unila teral No observ ation record ed. [facility] [place] [address], [place], [address], 05/02/2023 09:33:56 Result Notes None recorded. Problems Name Problem SNOMED Code Status Onset Date Resolution Date Notes Provider Name and Address Organization Details Recorded Time Heartburn 21985230 Active 2017 Not Available [facility] 3 13:31:47 Ankle pain 003418911 Active Not Available [facility] 3 13:31:47 Sprain of lateral ligament of ankle joint 109197007 Active Not Available [facility] 3 13:31:47 Osteoarthr itis 657529251 Active Not Available [facility] 3 13:31:47 Closed fracture of ankle 79964603 Active Not Available [facility] 3 13:31:47 Pain of right knee joint 3660327021317 00 Active 2021 Not Available [facility] 3 13:31:47 Contusion of foot 95322163 Active 2017 Not Available [facility], [facility] 3 13:31:47 Pain of bilateral hands 4218810312757 9109 Active 2022 HONG Pichardo null, [facility] 3 08:58:19 Acquired bilateral pes planus 3656314246373 9109 Active 2022 Yvonne Walker MACHINE WORKER null, [facility] 3 09:53:06 Pain of left hip joint 2812131431411 00 Active 2022 Kimberley Jackson RMA null, [facility] 3 08:54:06 Pain of left hand 0270560515021 03 Active 2022 HONG Pichardo null, [facility] 3 08:46:18 Notes:back/neck problems, ey e problems, headaches, herniated disc, swollen or painful joints, wears glasses Problem Notes None recorded. Procedures Surgical History Date Name Laterality Status Provider Name and Address Organization Details Recorded Time Neck completed Not Available [facility], [facility] 09/2022 13:30:02 Imaging Results Imaging Date Name Status LastModified by Organiz ation Details LastModified Time 03/13/2022 XR, knee completed [id number] [facility] [place] [address], [place], [address], 11/20/2022 13:36:27 03/26/2023 XR, hand completed [facility] [place] [address], [place], [address], 03/26/2023 10:05:01 05/02/2023 XR, hip + pelvis, unilateral completed [facility] [place] [address], [place], [address], 05/02/2023 09:33:56 Procedure Notes None recorded. Medical [...] suspension for injection in office 2022 active [facility]: 0003- 0494- 20 Not Available Not [...] %) injection solution in office 2022 active [facility] 16261 -064- 01 Not Available Not Available Not Available Fluvirin 6223-8130 45 mcg (15 mcg x 3)/0.5 mL intramuscul ar suspension 03/13 completed Not Available Not Available Not Available Vitals Date Recorded Body mass index (BMI) Body height Body weight Provider Name and Address Organization Details Last Updated DateTime 03/13/2022 38.2 kg/m2 170.18 cm 931769.54 g Not Available [facility] 11/20/2022 13:31:24 Date Recorded Body height Body mass index (BMI) Body weight Provider Name and Address Organization Details Last Updated DateTime 03/26/2023 170.18 cm 38.5 kg/m2 911159.72 g Kimberley Jackson [facility] [employer] [facility] 03/26/2023 09:15:07 Date Recorded Body height Provider Name an d Address Organization Details Last Updated DateTime 05/02/2023 170.18 cm Kimberley Jackson [facility] [employer] [facility] 05/02/2023 08:53:11 Date Recorded Body height Provider Name an d Address Organization Details Last Updated DateTime 06/25/2023 170.18 cm Kimberley Jackson [facility] [employer] [facility] 06/25/2023 08:44:56 Social History Question Answer Notes LastModified by Organizat ion Details LastModified Time Tobacco Smoking Status Former Smoker quit 26 Jasmyne kwong, [facility] [employer] [facility] 06/25/2023 08:44:14 What Is Your Level Of Alcohol Consumption? Occasional [id number] Information not available 11/20/2022 Sex: Unknown Functional Status None recorded. Mental Status None recorded. Family History Relationship Description Onset Age of this Age Resolved Age Notes LastModified by Organization Details LastModified Time Father Family history of malignant neoplasm [email or web address] Not available 06/25 08:44:13 Mother Family history of malignant neoplasm Not available 06/25 08:44:13 Brother Diabetes mellitus [id number] Not available 11/20/2022 13:30:04 Sister Diabetes mellitus [id number] Not available 11/20/2022 13:30:04 Medical History Condition Response BLINDNESS N KIDNEY STONES N MRSA N CARPAL TUNNEL SYNDROME N LUNG DISEASE/DISORDER N HISTORY OF DRUG ABUSE N RADIATION / CHEMOTHERAPY N COPD N SPORTS INJURY N ANKLE PAIN N BLOOD DISEASES N SCHIZOPHRENIA N SHINGLES N BOWEL PROBLEMS N SHOULDER PAIN N DEPRESSION (INCLUDING POST ) N STROKE/TIA N KNEE PAIN N ULCERS N BENIGN PROSTATIC HYPERPLASIA N OBESITY N GERD/NAUSEA N ANEURYSM N URINARY/BLADDER/KIDNEY PROBLEMS N CORONARY ARTERY DISEASE (CAD) N ADDICTION CONCERNS N USE OF BLOOD THINNERS N SKIN PROBLEMS N EMPHYSEMA N MUSCLE,JOINT OR BONE PROBLEMS N DVT N STOMACH ULCERS N BLOOD CLOTS N USE OF NSAIDS N CONCUSSION OR SPINAL TRAUMA N NEUROPATHY N AIDS/HIV N FRACTURES N ELBOW PAIN N HYPERTENSION N TOURETTE'S N ANXIETY DISORDER N Metal allergy N BLOOD TRANSFUSION N ANEMIA/BLOOD DISORDER N [...] HAVE YOU BEEN HOSPITALIZED OR SEEN IN [facility] IN THE PAST YEAR ? N [...] SNOMED-CT Code Diagnosis ICD10 Code Diagnosis Note [id number] [facility] [address] [place] [address] 03/13/2022 00:00:00 03/13/2022 10:38:23 [id number] MARÍA Balderrama [facility] [place] [address] [place] [address] 03/26/2023 08:38:34 03/26/2023 10:10:15 Pain of bilateral hands 0308104332 8352574 M79.641 M79.642 Acquired b ilateral pes planus 1325333630 1091920 M21.41 M21.42 [id number] MARÍA Balderrama [facility] [place] [address] [place] [address] 05/02/2023 08:44:01 05/02/2023 12:29:17 Pain of left hip joint 3511565186 72175 M25.397 [id number] MARÍA Balderrama [facility] [place] [address] [place] [address] 06/25/2023 08:42:31 06/25/2023 09:22:21 Pain of left hand 8015600305 24023 M79.642 Health Concerns Section Related Observation LastModified by Organization Detai ls LastModified Time None Recorded Concern Status LastModified by Organization Details LastModified Time None Recorded Advance Directives Directive None Recorded Payers Encounter Date Sequence Insurance Name Policy Number Policy Hurt Covered Member ID Hurt Member ID Guarantor Name 03/26/2023 1 [employer] [id number] Oscar Land [id number] Joseph Land 05/02/2023 1 [employer] [id number] Oscar Land [id number] Joseph Land 06/25/2023 1 [employer] [id number] Oscar Land [id number] KERI Joseph Land
--- OUTSIDE RECORDS SUMMARY | 2024-11-25 09:30 | XMS_ITS | Clinical Summary ---
Author Organization [facility] Address [address] [place] [address] Care Team Providers Care Coil Winder Hand Name Role Phone Dylan Rebolledo MD Primary Care Provider [phone] Allergies No known active allergies Medications omeprazole [...] Department Care Team Description 10/12/2024 7:42 AM SUPERVISOR CENTRAL SUPPLY - 10/12/2024 11:59 PM SUPERVISOR CENTRAL SUPPLY Hospital Encounter [facility] [address] [place] [address] Arthritis of carpometacarpal (CMC) joints of both thumbs Discharge Disposition: Discharge to home or self care 10/12/2024 7:30 AM SUPERVISOR CENTRAL SUPPLY Office Visit [facility] Orthopaedic Surgery [address] [facility] 6th [place] [address] [place] [address] Ilya Dee MD Arthritis of carpometacarpal (CMC) [...] on file Legal Sex Female 10:23 AM SUPERVISOR CENTRAL SUPPLY Gender Identity Not on file Sexual Orientation Not on file Obstetrics History Last Filed Vital Signs Vital Sign Reading Time Taken Comments Blood Pressure - - Pulse - - Temperature - - Respiratory Rate - - Oxygen Saturation - - Inhaled Oxygen Concentration - - Weight 107 kg (236 lb) 10/12/2024 8:20 AM SUPERVISOR CENTRAL SUPPLY Height 170.2 cm (5' 7 ) 10/12/2024 8:20 AM SUPERVISOR CENTRAL SUPPLY Body Mass Index 36.96 10/12/2024 8:20 AM SUPERVISOR CENTRAL SUPPLY Plan of Treatment Health Maintenance Due Date [...] Read Routine (OP Routine) 10/12/2024 7:58 AM SUPERVISOR CENTRAL SUPPLY Arthritis of carpometacarpal (CMC) joints of both thumbs from Last 3 Months Results * XR Wrist Bilateral 3 or More Views (10/12/2024 7:58 AM SUPERVISOR CENTRAL SUPPLY) Anatomical Region Laterality Modality Upper Extremities, Wrist Compute d Radiography 10/12/2024 8:03 AM SUPERVISOR CENTRAL SUPPLY Impressions 10/12/2024 8:03 AM SUPERVISOR CENTRAL SUPPLY Moderate right and severe left 1st carpometacarpal and triscaphe joint osteoarthritis. Electronically signed by: Adrián Shehean M.D. Narrative 10/12/2024 8:03 AM SUPERVISOR CENTRAL SUPPLY EXAMINATION: XR WRIST BILATERAL 3 OR MORE [...] from Last 3 Months Insurance HEALTHCARE O [facility] O Care Teams Coil Winder Hand Relationship Specialty Start Date End Date Dylan Rebolledo MD [address] [id number] PCP - General Family Medicine 10/12/24
--- OUTSIDE RECORDS SUMMARY | 2024-11-25 09:30 | XMS_ITS | Referral Summary ---
Author Organization [facility] Address [address] [place] [address] Care Team Providers Care Recreation Programmer Name Role Phone Dylan Rebolledo MD Primary Care Provider [phone] Encounters Date Type Department Care Team Description 10/12/2024 7:42 AM MULTIPLE DRUM SANDER HELPER - 10/12/2024 11:59 PM MULTIPLE DRUM SANDER HELPER Hospital Encounter [facility] [address] [place] [address] Arthritis of carpometacarpal (CMC) joints of both thumbs Discharge Disposition: Discharge to home or self care 10/12/2024 7:30 AM MULTIPLE DRUM SANDER HELPER Office Visit [facility] Orthopaedic Surgery [address] [place] [address] [address] [place] [address] [place] [address] Ilya Dee MD Arthritis of carpometacarpal (CMC) [...] on file Legal Sex Female 10:23 AM MULTIPLE DRUM SANDER HELPER Gender Identity Not on file Sexual Orientation Not on file Last Filed Vital Signs Vital Sign Reading Time Taken Comments Blood Pressure - - Pulse - - Temperature - - Respiratory Rate - - Oxygen Saturation - - Inhaled Oxygen Concentration - - Weight 107 kg (236 lb) 10/12/2024 8:20 AM MULTIPLE DRUM SANDER HELPER Height 170.2 cm (5' 7 ) 10/12/2024 8:20 AM MULTIPLE DRUM SANDER HELPER Body Mass Index 36.96 10/12/2024 8:20 AM MULTIPLE DRUM SANDER HELPER Plan of Treatment Not on file Procedures Procedure Name Priority Date/Time Associated Diagnosis Comments XR WRIST BILATERAL 3 OR MORE VIEWS Schedule Routine, Read Routine (OP Routine) 10/12/2024 7:58 AM MULTIPLE DRUM SANDER HELPER Arthritis of carpometacarpal (CMC) joints of both thumbs from Last 3 Months Results * XR Wrist Bilateral 3 or More Views (10/12/2024 7:58 AM MULTIPLE DRUM SANDER HELPER) Anatomical Region Laterality Modality Upper Extremities, Wrist Compute d Radiography 10/12/2024 8:03 AM MULTIPLE DRUM SANDER HELPER Impressions 10/12/2024 8:03 AM MULTIPLE DRUM SANDER HELPER Moderate right and severe left 1st carpometacarpal and triscaphe joint osteoarthritis. Electronically signed by: Adrián Sheehan M.D. Narrative 10/12/2024 8:03 AM MULTIPLE DRUM SANDER HELPER EXAMINATION: XR WRIST BILATERAL 3 OR MORE [...] from Last 3 Months Insurance Care Teams Recreation Programmer Relationship Specialty Start Date End Date Dylan Rebolledo MD [address] [address] PCP - General Family Medicine 10/12/24
--- OUTSIDE RECORDS SUMMARY | 2024-11-25 09:30 | XMS_ITS | Patient Health Record ---
Author Organization [facility] Address [address], [place] [address] Care Team Providers Care Wiping Cloth Cutter Name Role Phone Dylan Rebolledo Primary Care Provider Unavailab luciana Baltazar DPM, Mark Unavailable [phone] ALLERGIES No Known Allergies REASON FOR REFERRAL [...] Plantar fascial fibromatosis (M72.2) 1 Active confirmed 04643667 Problem Pain in left foot (M79.672) 1 Active confirmed [id number] PLAN OF TREATMENT No Information Insurance Providers Payer Name Payer Address Payer Phone Subscriber Number Group Number Insured Name Patient Relationship to Insured Coverage Start Date Coverage End Date [employer] [address] [place] [address] [id number] Oscar Land Spouse - patient is the spouse of the insured MEDICAL (GENERAL) HISTORY Medical History History ICD Code high blood pressure acid reflux depression Surgical History Surgery Date(Month/Year) Neck fusion right knee surgery
--- NOTE | 2024-11-25 09:41 | ECG_ITS ---
Test Date: 2024-11-25 09:58:13 Measurements Intervals [place] Rate: 85 P: -15 AL: 153 QRS: -23 QRSD: 99 T: 18 QT: 343 QTc: 409 Interpretive Statements SINUS RHYTHM BORDERLINE LEFT AXIS DEVIATION [QRS AXIS < -20] MINIMAL VOLTAGE CRITERIA FOR LVH, CONSIDER NORMAL VARIANT [MEETS CRITERIA IN ONE OF: R(aVL), S(V1), R(V5), R(V5/V6)+S(V1)] Baseline artifact may affect interpretation. No previous ECG available for comparison Electronically Signed On 11-25-2024 14:03:55 PONY CYLINDER PRESS OPERATOR by Ketan Jaquez M.D.
[2024-11-25 10:07] LABS: Hematocrit 42.6 % (42.0-52.0); Hemoglobin 13.8 g/dL (14.0-18.0); Mean Corpuscular HGB Conc 32.4 g/dl (32-36); Mean Corpuscular Hemoglobin 28.6 pg (26-34); Mean Corpuscular Volume 88.4 fl (80-100); Mean Platelet Volume 8.3 fl (7.4-10.4); Platelet Count Result 240 k/mm3 (150-375); Red Blood Count 4.82 M/mm3 (4.6-6.20); Red Cell Distribution Width 13.6 % (11.5-14.5); White Blood Count 8.9 K/mm3 (4.5-10.0)
[2024-11-25 10:12] LABS: Add Urine Microscopic? NO; Appearance Urine Clear (Clear); Bilirubin Urine Negative (Negative); Blood Urine Negative (Negative); Color Urine Yellow (Yellow); Glucose Urine UA Negative (Negative); Ketones Urine Negative (Negative); Leukocyte Esterase Ur Negative LEU/UL (Negative); Nitrate Urine Negative (Negative); Protein Urine Negative (Negative); Specific Grav Ur 1.007 (1.001-1.035); Urobilinogen Urine 0.2 mg/dL (<2.0)
[2024-11-25 10:19] LABS: Prothrombin Time 13.8 Seconds (11.1-14.7)
[2024-11-25 10:20] LABS: Partial Thromboplastin Time 31.3 Seconds (22.3-36.8)
[2024-11-25 10:28] LABS: Anion Gap 8 mmol/L (4-12); Blood Urea Nitrogen 21 mg/dL (9-20); Calcium 9.3 mg/dL (8.4-10.2); Carbon Dioxide 32 mmol/L (22-30); Chloride 101 mmol/L (98-107); Estimated Glomerular Filt Rate > 60; Glucose 74 mg/dL (65-110); Potassium 4.3 mmol/L (3.4-5.0); Sodium 141 mmol/L (137-145)
== END 2024-11-25 08:52 | disposition home or self-care (01) ==
LOC: ANHSURGERY 08:57
PROVIDERS: PCP Family Medicine; Visit Provider Neurological Surgery
DX: M43.16 Spondylolisthesis, lumbar region (principal); M47.816 Spondylosis without myelopathy or radiculopathy, lumbar region; I10 Essential (primary) hypertension; Z01.818 Encounter for other preprocedural examination
CPT/HCPCS: 36415; 80048; 81003; 85027; 85610; 85730; 86850; 86900; 86901; 93005

== ENCOUNTER 2024-12-07 18:37 | Observation (INO) | payer OTHER, SELFPAY ==
[2024-11-25 09:10] VITALS: BP 141/69; PULSE 94; RESP 16; TEMP 36.7; O2SAT 100; BMI 36.3
--- NOTE | 2024-11-25 09:24 | PC.NURSE ---
Report to the Outpatient Waiting Room, entrance under the green pavilion located off [facility], at time ___10:00AM____ on date ___12/06/24____. Planned Procedure Time: ___12:00PM .? Time changes happen often and if your time is changed the preop area will call you the afternoon before. - You and your visitor will be asked to self-screen and do not enter if you have any COVID symptoms. Please call surgeon if you need to reschedule. - A mask is optional within the hospital at this time. Patients may have clear liquids (water, carbonated beverages, clear teas, apple juice) until 3 hours prior to surgery (9:00AM) with a maximum of 20 ounces. - No food from midnight until time of surgery and no smoking, or chewing tobacco (or any form of nicotine). No chewing gum, candy or mints. Take only the following medications with a SIP of water on the morning of surgery: ___DULOXETINE DO NOT STOP ANY OF YOUR OTHER PRESCRIPTION MEDICATIONS PRIOR TO SURGERY EXCEPT THE FOLLOWING Hold all vitamins and supplements for 3 days per anesthesiologist.-LAST DOSE 12/02/24 Medications to discontinue per physician _HOLD CELEBREX AND VITAMIN E PER DR JONES Date to take last dose Please no make-up, nail luxembourgish, hairspray, perfume, deodorant, or body powder the day of surgery.? No jewelry (including any body piercings) or valuables the day of surgery, leave them at home.? Please take a shower or bath the night before, or the morning of, surgery with an antibacterial soap.? Wear comfortable, loose fitting clothing.? - Jewelry must be removed prior to entering the operating room.? Rings and piercings that are not removed may be cut off. - The hospital will not accept responsibility for valuables.? - Please leave all valuables, including medications, at home the day of surgery. If you are going home after surgery, a licensed putaway driver must drive you home.? - NO public transportation without another adult if you receive anesthesia. - We recommend that an adult stay with you for 24 hours following discharge. - We also recommend that you do not drive, make important decision, drink alcoholic beverages, or take any drugs that were not prescribed by your health care provider for at least 24 hours after your discharge time. Follow any additional instructions given to you from your surgeon. Telephone instructions given to ____PATIENT and asked if any additional questions and then verbalized understanding. Patient advised to call surgeon office or pre surgery nurse liaison [phone] if any additional questions.
--- NOTE | 2024-12-05 10:47 | P.PNAN_ITS ---
Anes - Initial Pre Proc Eval Procedure: Operation Date: 12/06/24 12:00 Proposed Procedures p L4-5 Posterior Lumbar Interbody Fusion - Paul Maya MD Date/Time: 12/05/24 10:47 Surgeon: Paul Maya MD Pre Op Diagnosis: L4-5 spondyolithesis Patient Data Age: 64 Gender: M Height: 1.7 m Weight: 105.4 kg Last Vital Signs Temp 36.7 C 11/25/24 09:10 Pulse 94 11/25/24 09:10 Resp 16 11/25/24 09:10 BP 141/69 H 11/25/24 09:10 Pulse Ox 100 11/25/24 09:10 O2 Del Method Room Air 11/25/24 09:10 Allergies Allergy/AdvReac Type Severity Reaction Status Date / Time No Known Allergies Allergy Verified 12/06/24 10:58 Home Medications ?Medication ?Instructions ?Recorded ?Confirmed ?Type ascorbic acid (vitamin C) 1,000 mg 1 g PO DAILY 08/28/20 12/06/24 History tablet cyanocobalamin (vitamin B-12) 1,000 mcg PO DAILY 08/28/20 12/06/24 History 1,000 mcg tablet (Vitamin B-12) vitamin E mixed 400 unit capsule 400 unit PO DAILY 08/28/20 12/06/24 History ptuwqdzjbuym-ezfzvooe-zlkcsb 1 tablet PO DAILY 10/02/20 12/06/24 History tablet (Multivitamin 50 Plus tablet) omeprazole 20 mg capsule,delayed 20 mg PO DAILY 11/19/21 12/06/24 History release azelastine 137 mcg (0.1 %) nasal 1 spray intranasal Q12H #30 mL 12/18/21 12/06/24 Rx spray duloxetine 60 mg capsule,delayed 60 mg PO . q.a.m. #90 caps 05/13/24 12/06/24 Rx release ergocalciferol (vitamin D2) 1,000 2,000 unit PO DAILY 05/17/24 12/06/24 History unit capsule irbesartan 75 mg tablet 75 mg PO DAILY #30 tabs 07/13/24 12/06/24 Rx celecoxib 200 mg capsule 200 mg PO BID PRN pain #180 caps 10/11/24 12/06/24 Rx acetaminophen 500 mg tablet 1,000 mg PO Q6H PRN pain 11/25/24 12/06/24 History (Tylenol Extra Strength) ferrous sulfate 325 mg (65 mg 325 mg PO DAILY 11/25/24 12/06/24 History iron) tablet (FeroSul) fexofenadine 180 mg tablet 180 mg PO DAILY 11/25/24 12/06/24 History (Comfort Allergy) fluticasone propionate 50 2 spray intranasal BID PRN nasal 11/25/24 12/06/24 History mcg/actuation nasal congestion spray,suspension Patient hx anesthesia problems: none Family hx anesthesia problems: none Results Review: All pre-operative results and documents have been reviewed as part of the pre- operative evaluation. [facility] Past Medical History Medical History Cardiac murmur new murmur 09/20/2024. Echo 10/12/2024 with ejection fraction 60-65% with normal diastolic function and mild to moderate mitral valve regurgitation. BMI 38.0-38.9,adult Low ferritin ferritin 21 01/07/2023. Iron 70, 23% saturation, ferritin 29 on 03/03/2024. Ferritin 62 on 09/06/2024. Male erectile dysfunction, unspecified (~01/13/23) BMI 39.0-39.9,adult Obesity (BMI 30-39.9) Hypogonadism male (01/07/23) testosterone low at 199 with free testosterone 38 on 01/07/2023. Mild diastolic dysfunction (~04/2022) Essential hypertension (~06/2022) Central sleep apnea (05/20/22) index of 6.0 on home sleep study with oxygen desaturation to 75% on 05/20/2022. Schedule CPAP titration and echocardiogram. Echocardiogram with mild diastolic dysfunction with ejection fraction normal at 60 to 65% on 06/14/2022. BMI 37.0-37.9, adult Hypersomnia Snoring Dysphagia Sleep-disordered breathing Uvular hypertrophy Laryngopharyngeal reflux (LPR) Nasal polyps Chronic sinusitis PND (post-nasal drip) Hypertrophy of both inferior nasal turbinates Nasal septal deviation Nasal congestion Nasal obstruction BMI 36.0-36.9,adult Bilateral chronic knee pain Gastric ulcer Adenomatous colon polyp Acute recurrent maxillary sinusitis Exposure to COVID-19 virus Osteoarthritis involving multiple joints on both sides of body GERD (gastroesophageal reflux disease) normal EGD with Dr. Gilliam on 10/19/2020 Vitamin D deficiency, unspecified Level low at 29 on 01/07/2023. Vitamin-D low at 27 on 03/03/2024. Level normal at 34 on 09/06/2024. Vitamin B12 deficiency anemia Level normal at 936 with hemoglobin 13.5 and folic acid 21.2 on 01/07/2023. Normal at 1099 with hemoglobin 13.3 and folic acid 21.2 on 03/03/2024. Seasonal allergic rhinitis Acute recurrent sinusitis Migraine Depression Surgical History Surgical History H/O knee surgery H/O neck surgery Family History Family History Mother , age 89 Breast cancer Heart valve disorder Father , age 90 Cancer Heart disease Arthritis Social History Social History Smoking packs per day: 0.5 Smoking cigarettes per day: 10.0 Years smoked: 10 Smoking pack-years: 5.00 Smoking status: Former smoker Tobacco type: cigarettes Second hand tobacco smoke exposure: No Smoking end date: 03/22/95 Alcohol intake: current Drinks per week: 1 Alcohol use details: beer and vodka seldom Substance use: never Substance use type: does not use Do You Feel Safe in your Home?: Yes Lack of Transportation: No Lack of Food: Never True Current Housing: I Have Housing Concerned About Future Housing: No Difficulty Paying Gas/Electric Bills: No Difficulty Paying for Meds: No Currently Unemployed: No Education: Associate Degree Difficulty w/ Childcare or Family Care: No Living arrangements: with family Additional living arrangements comments: 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 Informed Consent: The patient's anesthetic plan and its attendant risks and benefits were discussed with the patient/family/POA. Questions were solicited and answers provided to the satisfaction of the patient/family/POA.
[2024-12-06] VITALS (13 sets, daily range): BP systolic 113–141; BP diastolic 58–80; PULSE 94–102; RESP 12–24; TEMP 36.4–37.2; O2SAT 92–100; BMI 35.4
--- OUTSIDE RECORDS SUMMARY | 2024-12-06 00:50 | XMS_ITS | Clinical Summary ---
Author Organization [facility] Address [address] [facility], [address] [address] Phone Care Team Providers Care Core Manager Name Role Phone Dylan Rebolledo MD Primary [...] Recently Relevant to Health Maintenance Care Teams Core Manager Relationship Specialty Start Date End Date Dylan Rebolledo MD [address] [id number] PCP - General Family Medicine 09/08/20
--- OUTSIDE RECORDS SUMMARY | 2024-12-06 00:50 | XMS_ITS | Patient Health Record ---
Author Organization [facility] Address [address] [address] Care Team Providers Care Publishing Director Name Role Phone Dylan Rebolledo Primary Care Provider Unavailab luciana Baltazar DPM, Mark Unavailable [phone] ALLERGIES No Known Allergies REASON FOR REFERRAL [...] Plantar fascial fibromatosis (M72.2) 1 Active confirmed [id number] Problem Pain in left foot (M79.672) 1 Active confirmed [id number] PLAN OF TREATMENT No Information Insurance Providers Payer Name Payer Address Payer Phone Subscriber Number Group Number Insured Name Patient Relationship to Insured Coverage Start Date Coverage End Date A[employer] [address] [place] [address] [id number] Oscar Land Spouse - patient is the spouse of the insured MEDICAL (GENERAL) HISTORY Medical History History ICD Code high blood pressure acid reflux depression Surgical History Surgery Date(Month/Year) Neck fusion right knee surgery
--- OUTSIDE RECORDS SUMMARY | 2024-12-06 00:50 | XMS_ITS | Data Portability ---
Author Organization [place] - [facility], Main Office Address [address] [place] [id number] Care Team Providers Care Toxics Program Officer Name Role Phone MONICO MOMIN Primary Care Provider MONICO MOMIN Referring Provider [phone] Assessment Encounter Date Assessment Date Assessment LastModified [...] times because not being able have good reconcilement clerk strength. Patient is on Celebrex 200 mg [...] patient more than half of this in lyfn-ag-efis conversation Not available 03/26/2023 10:07:52 05/02/2023 05/02/2023 [...] injury to his kidneys. He may take xrrb-jon-ydueesi Tylenol the Celebrex which would be safe. [...] patient more than half of this in wgew-no-hgcn conversation Not available 05/02/2023 09:39:04 06/25/2023 06/25/2023 [...] procedure, administere d by provider 2022 023 [email or web address] In-Office Order, Internal Use Only DO Not Attach Compendium DO Not Attach Compendium, Do Not Delete/merge, [id number] 3 08:50:06 injection/a spiration joint/bursa (PROC) - in office procedure, administere d by provider 2022 023 [email or web address] In-Office Order, Internal Use Only DO Not Attach Compendium DO Not Attach Compendium, Do Not Delete/merge, [id number] 3 09:43:12 Surgeries None recorded. Imaging XR, hip + pelvis, unilateral 2022 023 [email or web address] [facility] [place], [address], [place], [address], 3 08:21:45 XR, hand 2022 023 [email or web address] [facility] [place], [address] [facility], [place], [address], 3 09:18:04 Medication Orders Kenalog 10 mg/mL suspension for injection 2022 023 [email or web address] #[id number], [address] [place], [address], 3 12:57:39 ropivacaine (PF) 5 mg/mL (0.5 %) injection solution 2022 023 [id number], [address] [place], [address], 3 12:57:39 Kenalog 10 mg/mL suspension for injection 2022 023 [facility]/Pharmacy #[id number], [address] [place], [address], 3 08:53:22 ropivacaine (PF) 5 mg/mL (0.5 %) injection solution 2022 023 [email or web address] [facility]/Pharmacy #[id number], [address] [place], [address], 3 08:53:31 Patient TargetsNo targets recorded. Patient InstructionsNo instructions recorded. Reason for Referral None Reported. Results Created Date Observation Date Name Description Value Unit Range Abnormal Flag Note LastModifiedBy Organization Detail LastModifiedTime 03/13/20 22 XR, knee No observ ation record ed. [id number] [facility] [place] [address], [place], [address], 11/20/2022 13:36:27 03/26/20 23 XR, hand No observ ation record ed. [facility] [place] [address], [place], [address], 03/26/2023 10:05:01 05/02/20 23 XR, hip + pelvi s, unila teral No observ ation record ed. [facility] [place] [address], [place], [address], 05/02/2023 09:33:56 Result Notes None recorded. Problems Name Problem SNOMED Code Status Onset Date Resolution Date Notes Provider Name and Address Organization Details Recorded Time Heartburn 55067946 Active 2017 Not Available [facility] 3 13:31:47 Ankle pain 309888520 Active Not Available [facility] 3 13:31:47 Sprain of lateral ligament of ankle joint 271667816 Active Not Available [facility] 3 13:31:47 Osteoarthr itis 176939961 Active Not Available [facility] 3 13:31:47 Closed fracture of ankle 70931510 Active Not Available [facility] 3 13:31:47 Pain of right knee joint 6989249061020 00 Active 2021 Not Available [facility] 3 13:31:47 Contusion of foot 29974203 Active 2017 Not Available [facility] 3 13:31:47 Pain of bilateral hands 7434623573168 9109 Active 2022 HONG Pichardo null, [facility] 3 08:58:19 Acquired bilateral pes planus 5696451943752 9109 Active 2022 Yvonne Walker [facility] null, [facility] 3 09:53:06 Pain of left hip joint 2535797693347 00 Active 2022 Kimberley Jackson RMA null, [facility] 3 08:54:06 Pain of left hand 0891443789397 03 Active 2022 HONG Pichardo null, [facility] 3 08:46:18 Notes:back/neck problems, ey e problems, headaches, herniated disc, swollen or painful joints, wears glasses Problem Notes None recorded. Procedures Surgical History Date Name Laterality Status Provider Name and Address Organization Details Recorded Time Neck completed Not Available [facility] 09/2022 13:30:02 Imaging Results Imaging Date Name Status LastModified by Organiz ation Details LastModified Time 03/13/2022 XR, knee completed [id number] [facility] [place] [address], [place], [address], 11/20/2022 13:36:27 03/26/2023 XR, hand completed [facility] [place] [address], [place], [address], 03/26/2023 10:05:01 05/02/2023 XR, hip + pelvis, unilateral completed [facility] [place] [address], [place], [address], 05/02/2023 09:33:56 Procedure Notes None recorded. Medical [...] suspension for injection in office 2022 active [facility]: 0003- 0494- 20 Not Available Not [...] %) injection solution in office 2022 active [facility] [phone] -[phone]- 01 Not Available Not Available Not Available Fluvirin 3370-1657 45 mcg (15 mcg x 3)/0.5 mL intramuscul ar suspension 03/13 completed Not Available Not Available Not Available Vitals Date Recorded Body mass index (BMI) Body height Body weight Provider Name and Address Organization Details Last Updated DateTime 03/13/2022 38.2 kg/m2 170.18 cm 906627.54 g Not Available [facility] 11/20/2022 13:31:24 Date Recorded Body height Body mass index (BMI) Body weight Provider Name and Address Organization Details Last Updated DateTime 03/26/2023 170.18 cm 38.5 kg/m2 454873.72 g Kimberley Jackson [facility] [employer] [facility] 03/26/2023 09:15:07 Date Recorded Body height Provider Name an d Address Organization Details Last Updated DateTime 05/02/2023 170.18 cm Kimberley Jackson [facility] [employer] [facility] 05/02/2023 08:53:11 Date Recorded Body height Provider Name an d Address Organization Details Last Updated DateTime 06/25/2023 170.18 cm Kimberley Jackson [facility] [employer] [facility] 06/25/2023 08:44:56 Social History Question Answer Notes LastModified by Organizat ion Details LastModified Time Tobacco Smoking Status Former Smoker quit 26 Jasmyne kwong, [facility] [employer] [facility] 06/25/2023 08:44:14 What Is Your Level Of Alcohol Consumption? Occasional [id number] Information not available 11/20/2022 Sex: Unknown Functional Status None recorded. Mental Status None recorded. Family History Relationship Description Onset Age of this Age Resolved Age Notes LastModified by Organization Details LastModified Time Father Family history of malignant neoplasm [email or web address] Not available 06/25 08:44:13 Mother Family history of malignant neoplasm [email or web address] Not available 06/25 08:44:13 Brother Diabetes mellitus [id number] Not available 11/20/2022 13:30:04 Sister Diabetes mellitus [id number] Not available 11/20/2022 13:30:04 Medical History Condition [...] HAVE YOU BEEN HOSPITALIZED OR SEEN IN [facility] IN THE PAST YEAR ? N BURSITIS [...] SNOMED-CT Code Diagnosis ICD10 Code Diagnosis Note [id number] [facility] [address] [place] [address] 03/13/2022 00:00:00 03/13/2022 10:38:23 [id number] MARÍA Balderrama [facility] [place] [address] [place] [address] 03/26/2023 08:38:34 03/26/2023 10:10:15 Pain of bilateral hands 0894544035 [id number] M79.641 M79.642 Acquired b ilateral pes planus 7100170227 5718618 M21.41 M21.42 [id number] MARÍA Balderrama [facility] [place] [address] [place] [address] 05/02/2023 08:44:01 05/02/2023 12:29:17 Pain of left hip joint 7862188663 40486 M25.606 [id number] MARÍA Balderrama [facility] [place] [address] [place] [address] 06/25/2023 08:42:31 06/25/2023 09:22:21 Pain of left hand 9462324087 20108 M79.642 Health Concerns Section Related Observation LastModified by Organization Detai ls LastModified Time None Recorded Concern Status LastModified by Organization Details LastModified Time None Recorded Advance Directives Directive None Recorded Payers Encounter Date Sequence Insurance Name Policy Number Policy Hurt Covered Member ID Hurt Member ID Guarantor Name 03/26/2023 1 [employer] [id number] Oscar Land [id number] Joseph Land 05/02/2023 1 [employer] [id number] Oscar Land [id number] Joseph Land 06/25/2023 1 [employer] [id number] Oscar Land [id number] KERI Joseph Land
--- OUTSIDE RECORDS SUMMARY | 2024-12-06 00:50 | XMS_ITS | Continuity of Care Document ---
Author Organization Formerly [facility] Address [address] [facility] [address] [facility] [address] [place] [address] Phone Care Team Providers Care Surveyor'S Assistant Name Role Phone Lucas Escalera Unavailable Unavailable Procedures Procedure Date Eye Exam & Treatment Refraction Advance Directives Directive Yes / No Effective Date File Name No Information Encounters Encounter Description Practice Location Reason(s) For Visit Diagnoses Date Provider Providers Copied on Encounter [facility], [address], [place], [place], [id number], [place] tel:[phone] [facility] ([facility]) No Information [address] [facility] [address], [address], [place]. tel:[phone] Family History Family Member Type Diagnosis Age [...]
[2024-12-06] MEDS: LACTATED RINGERS 1,000 ML 30 ML IV CONT ×2 (10:50→15:32)
[2024-12-06] MEDS: SCOPOLAMINE 1 MG PATCH 1 PATCH TRANSDERM (11:07)
--- NOTE | 2024-12-06 11:33 | SUR.PREOP ---
Dr Dillard notified that patient did take irbesartan, omeprazole, and amoxicillin this morning at 0730am.
--- NOTE | 2024-12-06 11:56 | P.HP_ITS ---
H&P: HPI History of Present Illness Date/Time: 12/06/24 11:56 Chief Complaint: back and leg pain Narrative: Joseph is a 64-year-old gentleman with a progressive history of problems related to his back and lower extremities. Much of the pain that he is experiences in his back and radiates into the left buttock and he has left groin pain as well. He is known to have left hip disease that may require surgical intervention in the future. Usually it extends down to the back of the left knee. Again, the back pain is the worst and it can be quite severe at times. While it can be present when he is sitting it is almost always present when he stands and walks and progressively becomes worse until he must sit down. He does not report specific muscle group weakness in either lower extremity nor any bowel or bladder difficulty. Pain has been going on for a year progressively and for the last few months severely. some of his symptoms have been present since before COVNM. In fact he saw pain management doctor back in 2019 but at the time was being treated with an old compression fracture. Review of Systems Review of Systems: All systems reviewed & are unremarkable except as noted in HPI and below Denies chills, Denies fever, Denies weight gain and Denies weight loss Eyes Denies change in vision and Denies diplopia ENT Denies disequilibrium Card Denies chest pain and Denies dyspnea Resp Denies cough and Denies dyspnea GI Denies abdominal pain, Denies change in bowel habits, Denies fecal incontinence and Denies vomiting Denies hematuria, Denies oliguria, Denies difficulty urinating, Denies dysuria, Denies urinary frequency, Denies urinary hesitancy, Denies urinary incontinence and Denies urinary urgency Musc Reports as per HPI Skin/ Breast Reports system reviewed and no additional complaints, except as documented Neuro Reports as per HPI Psych Reports no additional complaints, Denies depression and Denies hopelessness Endo Reports no additional complaints and Denies polyuria Alcon/ Lymph Reports no additional complaints Aller/ Immun Reports no additional complaints PMFSH Past Medical History Medical History Cardiac murmur new murmur 09/20/2024. Echo 10/12/2024 with ejection fraction 60-65% with n ormal diastolic function and mild to moderate mitral valve regurgitation. BMI 38.0-38.9,adult Low ferritin ferritin 21 01/07/2023. Iron 70, 23% saturation, ferritin 29 on 03/03/2024. Ferritin 62 on 09/06/2024. Male erectile dysfunction, unspecified (~01/13/23) BMI 39.0-39.9,adult Obesity (BMI 30-39.9) Hypogonadism male (01/07/23) testosterone low at 199 with free testosterone 38 on 01/07/2023. Mild diastolic dysfunction (~04/2022) Essential hypertension (~06/2022) Central sleep apnea (05/20/22) index of 6.0 on home sleep study with oxygen desaturation to 75% on 05/20/2022. Schedule CPAP titration and echocardiogram. Echocardiogram with mild diastolic dysfunction with ejection fraction normal at 60 to 65% on 06/14/2022. BMI 37.0-37.9, adult Hypersomnia Snoring Dysphagia Sleep-disordered breathing Uvular hypertrophy Laryngopharyngeal reflux (LPR) Nasal polyps Chronic sinusitis PND (post-nasal drip) Hypertrophy of both inferior nasal turbinates Nasal septal deviation Nasal congestion Nasal obstruction BMI 36.0-36.9,adult Bilateral chronic knee pain Gastric ulcer Adenomatous colon polyp Acute recurrent maxillary sinusitis Exposure to COVID-19 virus Osteoarthritis involving multiple joints on both sides of body GERD (gastroesophageal reflux disease) normal EGD with Dr. Gilliam on 10/19/2020 Vitamin D deficiency, unspecified Level low at 29 on 01/07/2023. Vitamin-D low at 27 on 03/03/2024. Level normal at 34 on 09/06/2024. Vitamin B12 deficiency anemia Level normal at 936 with hemoglobin 13.5 and folic acid 21.2 on 01/07/2023. Normal at 1099 with hemoglobin 13.3 and folic acid 21.2 on 03/03/2024. Seasonal allergic rhinitis Acute recurrent sinusitis Migraine Depression Surgical History Surgical History H/O knee surgery H/O neck surgery Family History Family History Mother , age 89 Breast cancer Heart valve disorder Father , age 90 Cancer Heart disease Arthritis Social History Social History Smoking packs per day: 0.5 Smoking cigarettes per day: 10.0 Years smoked: 10 Smoking pack-years: 5.00 Smoking status: Former smoker Tobacco type: cigarettes Second hand tobacco smoke exposure: No Smoking end date: 03/22/95 Alcohol intake: current Drinks per week: 1 Alcohol use details: beer and vodka seldom Substance use: never Substance use type: does not use Do You Feel Safe in your Home?: Yes Lack of Transportation: No Lack of Food: Never True Current Housing: I Have Housing Concerned About Future Housing: No Difficulty Paying Gas/Electric Bills: No Difficulty Paying for Meds: No Currently Unemployed: No Education: Associate Degree Difficulty w/ Childcare or Family Care: No Living arrangements: with family Additional living arrangements comments: 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 Gender identity (if verbalized by the patient): Male Spiritual care concerns: No Meds Home Medications and Allergies Home Medications ?Medication ?Instructions ?Recorded ?Confirmed ?Type ascorbic acid (vitamin C) 1,000 mg 1 g PO DAILY 08/28/20 12/06/24 History tablet cyanocobalamin (vitamin B-12) 1,000 mcg PO DAILY 08/28/20 12/06/24 History 1,000 mcg tablet (Vitamin B-12) vitamin E mixed 400 unit capsule 400 unit PO DAILY 08/28/20 12/06/24 History qjjzydbcecud-oqncqjvw-yysevj 1 tablet PO DAILY 10/02/20 12/06/24 History tablet (Multivitamin 50 Plus tablet) omeprazole 20 mg capsule,delayed 20 mg PO DAILY 11/19/21 12/06/24 History release azelastine 137 mcg (0.1 %) nasal 1 spray intranasal Q12H #30 mL 12/18/21 12/06/24 Rx spray duloxetine 60 mg capsule,delayed 60 mg PO . q.a.m. #90 caps 05/13/24 12/06/24 Rx release ergocalciferol (vitamin D2) 1,000 2,000 unit PO DAILY 05/17/24 12/06/24 History unit capsule irbesartan 75 mg tablet 75 mg PO DAILY #30 tabs 07/13/24 12/06/24 Rx celecoxib 200 mg capsule 200 mg PO BID PRN pain #180 caps 10/11/24 12/06/24 Rx acetaminophen 500 mg tablet 1,000 mg PO Q6H PRN pain 11/25/24 12/06/24 History (Tylenol Extra Strength) ferrous sulfate 325 mg (65 mg 325 mg PO DAILY 11/25/24 12/06/24 History iron) tablet (FeroSul) fexofenadine 180 mg tablet 180 mg PO DAILY 11/25/24 12/06/24 History (Comfort Allergy) fluticasone propionate 50 2 spray intranasal BID PRN nasal 11/25/24 12/06/24 History mcg/actuation nasal congestion spray,suspension Allergies Allergy/AdvReac Type Severity Reaction Status Date / Time No Known Allergies Allergy Verified 12/06/24 10:58 Vital Signs Vital Signs - 24 hr 12/06/24 10:15 Temperature 99.0 F Pulse Rate 94 Respiratory Rate 18 Blood Pressure 130/80 Pulse Oximetry 97 Oxygen Delivery Room Air Exam Narrative: General: cooperative, no acute distress, well developed, alert and awake Orientation/Consciousness: oriented to person, oriented to place and oriented to time Constitutional Limitations: no limitations Other: The patient is a normally developed, normal appearing male sitting on the examination table in no acute distress. He is awake, alert, and oriented x3 with good fund of knowledge, recall of events, and fluent speech. [facility] Head: normocephalic and atraumatic Ears: external ears normal Face/Nose/Sinus: Normal external nose present Eyes Eyelids: eyelids normal Pupils: Yes Pupils normal by confrontation EOM: EOMs intact bilaterally Neck General: Yes no meningeal signs, Yes supple and Yes no JVD Resp Effort/Inspection: normal respiratory effort and able to speak in complete sentences Cardio Rate: Yes regular rate GI Inspection: No abdominal distension Musc Other: Examination of the back reveals mild tenderness. Range of motion of the back is full without pain in forward flexion and lateral rotation to both sides. there is some discomfort in extension and coming out of flexion. Straight leg raise is negative bilaterally. Porfirio?s test is negative bilaterally. Skin General: normal color Neuro General: Yes oriented to person, Yes oriented to place, Yes oriented to time, Yes normal cognition and Yes no meningeal signs Cranial Nerves: Yes CN's II-XII intact bilaterally Other: Motor: Strength is normal, 5/5, throughout all muscle groups of the bilateral and lower extremities to direct confrontation. Sensory: Sensation is intact to light touch throughout theand lower extremities bilaterally. Reflexes: Deep tendon reflexes are normal and symmetric at the knees and difficult to elicit at the ankles bilaterally. There is no clonus. Gait: Gait, station, and transfers are independent and steady for short periods of time and over short distances. Psych Appearance: grossly normal Mental status: Yes mental status grossly normal Mood: congruent mood Affect: Yes normal affect Speech/Movement: Normal speech and movement present Attitude: Yes cooperative Thought Content: Normal thought content present Review of studies: MRI of the lumbar spine was personally reviewed by me. This demonstrates a grade 1 spondylolisthesis at L4-5 with severe central canal stenosis and severe spondylosis at that level. There is spondylosis also at L5-S1 and L3-4 progressively but to a lesser degree. There is good lumbar lordosis Assessment and Plan Assessment and plan (1) Spondylolisthesis, lumbar region: Code(s): M43.16 - Spondylolisthesis, lumbar region Status: Acute Assessment and Plan: Joseph is a 64-year-old gentleman with a grade 1 spondylolisthesis and severe stenosis and spondylosis at that same level that is, L4-5 who is significantly symptomatic and having difficulty ambulating because of these issues. He is failed nonsurgical management. From a surgical perspective I would recommend decompression and fusion at L4-[address] posterior lumbar interbody fusion as he has a significant amount of back pain, as his predominant symptom, and the spondylolisthesis. I therefore describe him that operation, its risks, potential benefits, the operative and postoperative course in detail and answered all his questions personally. We discussed risks including but not limited to permanent neurologic deficit secondary to nerve root injury, need for reoperation secondary to infection, bleeding, CSF leak, adjacent level disease, recurrent or residual pathology or instability, malposition or migration of the hardware or nonunion, failure of the procedure to relieve his pain or symptoms, persistent pain, medical complications related to anesthesia or surgery, etc.. Indicates understanding and elects to proceed with the operation.
--- NOTE | 2024-12-06 11:59 | WPDHPUPDATE1 ---
History and Physical Update Update Date/Time: 12/06/24 11:59 History and Physical has been reviewed, including an updated exam of the patient. There are NO changes in the patient's condition. Risks, benefits, and alternatives have been discussed and questions answered. Patient agrees to proceed with procedure.
[2024-12-06] MEDS: ceFAZolin 2 GM/D5W 50 ML 2 GM/50 ML BAG IVPB (12:07)
[2024-12-06] MEDS: LIDO 1%/EPINEPHRINE/PF 1:200,000 30 ML VIAL XX (12:30)
[2024-12-06] MEDS: fentaNYL CITRATE INJ (*CRX) 100 MCG/2 ML VIAL 25 MCG IV PUSH ×7 (15:49→16:38)
[2024-12-06] MEDS: HYDROmorphone HCL INJ (*CRX) 1 MG/ML SYR 0.5 MG IV PUSH ×2 (16:48→16:54)
--- NOTE | 2024-12-06 17:15 | ADMGEN ---
This patient, Joseph Land, was admitted to [facility] Surg Room 320-01. Patient/family oriented to hospital policies and general routines including ID bracelet, bed and alarms, visiting hours, pain management, procedures, bathroom and other care routines, personal items, smoking policy, room service/diet, and visiting hours. Information on how to activate the Rapid Response Team has been discussed. Patient/Family are encouraged to report perceived risks to care and to ask questions if they do not understand what they are told or what they should do.
[2024-12-06] MEDS: KCL 20 MEQ/D5/0.45% SOD CHL 1,000 ML 100 ML IV CONT (18:02)
[2024-12-06] MEDS: HYDROcodone/acetaminophen (*CRX) 10-325 MG TABLET 1 TAB PO ×2 (18:12→22:11)
[2024-12-06] MEDS: ONDANSETRON INJ 4 MG/2 ML VIAL IV PUSH (18:18)
[2024-12-06] MEDS: AZELASTINE HCL NASAL 0.1% 137 MCG/SPR 30 ML BTL 1 SPRAY NASAL (20:38)
[2024-12-06] MEDS: DOCUSATE SODIUM 100 MG CAPSULE PO (20:39)
[2024-12-06] MEDS: ceFAZolin 1 GM/NS 50 ML 1 GM/50 ML BAG IVPB (20:39)
[2024-12-06] MEDS: CYCLOBENZAPRINE HCL 10 MG TABLET PO (21:16)
--- NOTE | 2024-12-06 22:11 | PC.NURSE ---
Pt. up to chair for approx. 45 minutes.
[2024-12-07] VITALS (8 sets, daily range): BP systolic 95–135; BP diastolic 54–69; PULSE 81–99; RESP 16–20; TEMP 36.3–37.4; O2SAT 95–100
--- NOTE | ~2024-12-07 | XR_ITS ---
INTRAOPERATIVE FLUOROSCOPY: CLINICAL HISTORY: 64 years old Male; L4-5 POSTERIOR LUMBAR FUSION PROCEDURE COMMENTS: Limited intraoperative fluoroscopy of the lumbar spine was performed. CUMULATIVE DOSE: 20.3 mGy FLUOROSCOPY TIME: 22.7 seconds FINDINGS/IMPRESSION: Please refer to operative note for further details. Reviewed, dictated and finalized at location A.
[2024-12-07] MEDS: ceFAZolin 1 GM/NS 50 ML 1 GM/50 ML BAG IVPB ×3 (04:55→20:47)
[2024-12-07] MEDS: KCL 20 MEQ/D5/0.45% SOD CHL 1,000 ML 100 ML IV CONT (04:55)
[2024-12-07] MEDS: oxyCODONE/ACETAMINOPHEN (*CRX) 10-325 MG TABLET 1 TAB PO ×4 (08:20→20:53)
[2024-12-07] MEDS: HYDROmorphone HCL INJ (*CRX) 1 MG/ML SYR 0.5 MG IV PUSH (09:05)
--- NOTE | 2024-12-07 09:15 | PC.NURSE ---
pt refusing a.m medications at this time, will continue to monitor
[2024-12-07] MEDS: PANTOPRAZOLE 40 MG TABLET PO (12:27)
[2024-12-07] MEDS: LORATADINE 10 MG TABLET PO (12:27)
[2024-12-07] MEDS: DULoxetine HCL 60 MG CAPSULE.DR PO (12:27)
--- NOTE | 2024-12-07 13:33 | P.PNNEUSUR_ITS ---
Progress Note: A&P Assessment and Plan (1) Lumbar spondylosis: Code(s): M47.816 - Spondylosis without myelopathy or radiculopathy, lumbar region Status: Acute Assessment and Plan: Joseph is doing well postop day 1 status post L4-5 posterior lumbar interbody fusion. I changed his by mouth pain medication to Percocet. He should be given the IV pain medication when necessary. Physical and occupational therapy should continue to work with him. Subjective Date/time seen: 12/07/24 13:33 Interval history: Joseph is postop day 1 status post L4-5 posterior lumbar interbody fusion. He has been out of bed and ambulated but has pain with transfers. His greatest complaint is pain. He states that he has not been getting IV pain medication but only by mouth pain medication at that the hydrocodone makes him sick. He does not report any new issues in his lower extremities. Exam Narrative: strength is normal in the bilateral lower extremities. Sensation is intact to light touch in lower extremities Wound is clean, dry and intact. Objective Data Vital Signs Vital Signs: Vital Signs - 24 hr 12/06/24 15:32 12/06/24 15:45 12/06/24 16:00 Temperature 98.7 F Pulse Rate 98 98 95 Respiratory Rate 24 H 17 16 Blood Pressure 113/58 L 115/67 122/71 Pulse Oximetry 97 100 100 Oxygen Delivery Simple Face Mask Simple Face Mask Simple Face Mask Oxygen Flow Rate 8 8 8 12/06/24 16:15 12/06/24 16:30 12/06/24 16:45 Temperature Pulse Rate 95 94 101 H Respiratory Rate 16 12 17 Blood Pressure 132/79 116/59 L 141/79 H Pulse Oximetry 97 92 100 Oxygen Delivery Room Air Room Air Nasal Cannula Oxygen Flow Rate 2 12/06/24 17:20 12/06/24 17:25 12/06/24 17:35 Temperature 97.6 F 97.8 F Pulse Rate 102 H 96 Respiratory Rate 17 18 17 Blood Pressure 140/74 136/75 Pulse Oximetry 100 100 100 Oxygen Delivery Nasal Cannula Oxygen Flow Rate 2 12/06/24 18:05 12/06/24 19:05 12/06/24 20:00 Temperature 97.8 F 97.8 F Pulse Rate 95 102 H Respiratory Rate 17 17 Blood Pressure 139/79 131/76 Pulse Oximetry 98 98 Oxygen Delivery Room Air Oxygen Flow Rate 12/06/24 20:25 12/07/24 00:00 12/07/24 04:30 Temperature 98.4 F 99.4 F 97.7 F Pulse Rate 95 96 91 Respiratory Rate 16 18 18 Blood Pressure 135/69 96/56 L 95/58 L Pulse Oximetry 96 98 95 Oxygen Delivery Oxygen Flow Rate 12/07/24 08:00 12/07/24 09:18 12/07/24 09:57 Temperature 97.6 F Pulse Rate 81 Respiratory Rate 20 Blood Pressure 108/55 L Pulse Oximetry 97 100 Oxygen Delivery Room Air Room Air Oxygen Flow Rate Intake/Output Intake/Output: Intake & Output 12/04/24 12/05/24 12/06/24 12/07/24 23:59 23:59 23:59 23:59 Intake Total 620 2240 Output Total 590 2360 Balance 30 -120 Meds/Results Medications: Active Medications Generic Name Dose Route Start Last Admin Trade Name Freq PRN Reason Stop Dose Admin Hydrocodone Bitart/Acetaminophen 1 tab 12/06/24 17:00 Hydrocodone/Acetaminophen (*Crx) 5-325 Mg Tablet PO Q4H PRN Mild Pain (1-3) Hydrocodone Bitart/Acetaminophen 1 tab 12/06/24 17:00 12/06/24 22:11 Hydrocodone/Acetaminophen (*Crx) 10-325 Mg Tablet PO 1 tab Q4H PRN Administration Moderate Pain (4-6) Al Hydrox/Mg Hydrox/Simethicone 20 ml 12/06/24 17:00 Mag Hydrox/Al Hydrox/Simeth 30 Ml Udc PO Q4H PRN Indigestion/Heartburn Ascorbic Acid 1,000 mg 12/07/24 09:00 Ascorbic Acid 500 Mg Tablet PO DAILY SANYA Azelastine HCl 1 spray 12/06/24 21:00 12/06/24 20:38 Azelastine Hcl Nasal 0.1% 137 Mcg/Spr 30 Ml Btl NASAL 1 spray Q12H SANYA Administration Bisacodyl 10 mg 12/06/24 17:00 Bisacodyl 10 Mg Suppository RECTAL DAILY PRN Constipation Cyanocobalamin 1,000 mcg 12/07/24 09:00 Cyanocobalamin 1,000 Mcg Tablet PO DAILY SANYA Cyclobenzaprine HCl 10 mg 12/06/24 17:00 12/06/24 21:16 Cyclobenzaprine Hcl 10 Mg Tablet PO 10 mg TID PRN Administration Muscle Spasms Docusate Sodium 100 mg 12/06/24 21:00 12/06/24 20:39 Docusate Sodium 100 Mg Capsule PO 100 mg Q12HR SANYA Administration Duloxetine HCl 60 mg 12/07/24 09:00 12/07/24 12:27 Duloxetine Hcl 60 Mg Capsule.Dr PO 60 mg QAM SANYA Administration Ferrous Sulfate 325 mg 12/07/24 09:00 Ferrous Sulfate [address] BY MOUTH DAILY SANYA Fluticasone Propionate 2 spray 12/06/24 17:00 Fluticasone Propionate 0.05% Na Spr 16 Gm Btl (*Bkc) NASAL BID PRN nasal congestion Hydromorphone HCl 0.5 mg 12/06/24 17:00 12/07/24 09:05 Hydromorphone Hcl Inj (*Crx) 1 Mg/Ml Syr IV PUSH 0.5 mg Q2H PRN Administration Pain Rated 7-10 Cefazolin Sodium 1 gm in 50 mls @ 100 mls/hr 12/06/24 20:00 12/07/24 12:58 Ancef 1 Gm/Ns 50 Ml IVPB Infused Q8H SANYA Infusion Potassium Chloride/Dextrose/Sod Cl 1,000 mls @ 100 mls/hr 12/06/24 17:00 12/07/24 04:55 Kcl 20 Meq/D5/0.45% Sod Chl IV CONT 100 mls/hr .Q10H SANYA Administration Irbesartan 75 mg 12/07/24 09:00 Irbesartan 75 Mg Tablet PO DAILY [facility] Loratadine 10 mg 12/07/24 09:00 12/07/24 12:27 Loratadine 10 Mg Tablet PO 10 mg QAM SANYA Administration Miscellaneous Information 1 each 12/07/24 00:01 Percocet/Brook Duplicate Prn Pain Scale XX 01/06/25 00:00 CLARIFY [facility] Multivitamins/Minerals 1 tablet 12/07/24 09:00 Opti-Gen Tab PO DAILY [facility] Ondansetron HCl 4 mg 12/06/24 17:00 12/06/24 18:18 Ondansetron Inj 4 Mg/2 Ml Vial IV PUSH 4 mg Q8H PRN Administration Nausea And Vomiting Oxycodone/Acetaminophen 1 tablet 12/07/24 08:11 Oxycodone/Acetaminophen (*Crx) 5-325 Mg Tablet PO Q4H PRN Pain Rated 3-6 Oxycodone/Acetaminophen 1 tab 12/07/24 08:11 12/07/24 12:26 Oxycodone/Acetaminophen (*Crx) 10-325 Mg Tablet PO 1 tab Q4H PRN Administration Pain Rated 7-10 Pantoprazole Sodium 40 mg 12/07/24 09:00 12/07/24 12:27 Pantoprazole 40 Mg Tablet PO 40 mg QAM [facility] Administration Senna/Docusate Sodium 1 tab 12/06/24 17:00 Senna/Docusate Sodium Tablet PO HS PRN Constipation Vitamin D 2,000 units 12/07/24 09:00 Cholecalciferol 1,000 Units Tablet PO DAILY [facility] Vitamin E 400 unit 12/07/24 09:00 Vitamin E 400 Unit Capsule PO QAM [facility]
--- NOTE | 2024-12-07 14:51 | WPDANESPN ---
Anes - Prog Note Post-Op Date/Time: 12/07/24 14:51 Cardiovascular status: normal Respiratory status: normal Airway patency: baseline Mental status: baseline Post-Op hydration status: normal Vital Signs: Last Vital Signs Temp 97.6 F 12/07/24 08:00 Pulse 81 12/07/24 08:00 Resp 20 12/07/24 08:00 BP 108/55 L 12/07/24 08:00 Pulse Ox 100 12/07/24 09:18 O2 Del Method Room Air 12/07/24 09:57 O2 Flow Rate 2 12/06/24 17:25 Pain Score (VAS): 0/10 I/O: Intake & Output 12/06/24 12/07/24 12/07/24 23:59 07:59 15:59 Intake Total 570 1950 290 Output Total 590 2360 Balance -20 -410 290 Post-procedural complaints: none Patient Feedback: Patient satisfied with anesthetic care.
[2024-12-07] MEDS: DOCUSATE SODIUM 100 MG CAPSULE PO (20:47)
[2024-12-07] MEDS: CYCLOBENZAPRINE HCL 10 MG TABLET PO (20:53)
[2024-12-08] MEDS: oxyCODONE/ACETAMINOPHEN (*CRX) 10-325 MG TABLET 1 TAB PO ×4 (01:46→17:32)
[2024-12-08] MEDS: ceFAZolin 1 GM/NS 50 ML 1 GM/50 ML BAG IVPB (03:39)
[2024-12-08 05:33] VITALS: BP 105/53; PULSE 90; RESP 16; TEMP 37; O2SAT 93
[2024-12-08] MEDS: PANTOPRAZOLE 40 MG TABLET PO (07:49)
[2024-12-08] MEDS: LORATADINE 10 MG TABLET PO (07:49)
[2024-12-08] MEDS: IRBESARTAN 75 MG TABLET PO (07:49)
[2024-12-08] MEDS: DULoxetine HCL 60 MG CAPSULE.DR PO (07:49)
[2024-12-08 14:00] VITALS: BP 98/48; PULSE 93; RESP 14; TEMP 36.3; O2SAT 98
--- NOTE | 2024-12-08 14:05 | WPDNEUROSGPN ---
Progress Note: A&P Assessment and Plan (1) Status post lumbar spinal arthrodesis: Code(s): Z98.1 - Arthrodesis status Status: Acute Plan -Out of bed mobilizing in halls -Will monitor in the hospital another night for pain control -Anticipate discharge home tomorrow Subjective Date/time seen: 12/08/24 14:05 Interval history: Overall doing well with fairly severe incisional pain. He has not received IV pain meds today. Oral pain medications are making pain tolerable. He has not had the radicular leg pain since surgery. Tolerating oral intake, voiding independently, and ambulating in halls. Review of Systems Review of Systems: All systems reviewed & are unremarkable except as noted in HPI and below Exam Narrative: AOx4 Incision c/d/i Hemovac drain being removed upon my arrival Full strength in legs Sensation intact to light touch Objective Data Vital Signs Vital Signs: Vital Signs - 24 hr 12/07/24 16:00 12/07/24 20:00 12/07/24 20:00 Temperature 98.6 F 98.3 F Pulse Rate 99 96 Respiratory Rate 20 16 Blood Pressure 110/54 L 130/69 Pulse Oximetry 100 96 Oxygen Delivery Room Air 12/07/24 23:39 12/08/24 05:33 12/08/24 07:45 Temperature 98.8 F 98.6 F Pulse Rate 90 90 Respiratory Rate 16 16 Blood Pressure 135/68 105/53 L Pulse Oximetry 98 93 Oxygen Delivery Room Air Intake/Output Intake/Output: Intake & Output 12/05/24 12/06/24 12/07/24 12/08/24 23:59 23:59 23:59 23:59 Intake Total 620 3010 886 Output Total 590 3560 Balance 30 -550 886 Meds/Results Medications: Active Medications Generic Name Dose Route Start Last Admin Trade Name Freq PRN Reason Stop Dose Admin Al Hydrox/Mg Hydrox/Simethicone 20 ml 12/06/24 17:00 Mag Hydrox/Al Hydrox/Simeth 30 Ml Udc PO Q4H PRN Indigestion/Heartburn Ascorbic Acid 1,000 mg 12/07/24 09:00 12/08/24 08:10 Ascorbic Acid 500 Mg Tablet PO Not Given DAILY SANYA Azelastine HCl 1 spray 12/06/24 21:00 12/08/24 08:10 Azelastine Hcl Nasal 0.1% 137 Mcg/Spr 30 Ml Btl NASAL Not Given Q12H SANYA Bisacodyl 10 mg 12/06/24 17:00 Bisacodyl 10 Mg Suppository RECTAL DAILY PRN Constipation Cyanocobalamin 1,000 mcg 12/07/24 09:00 12/08/24 08:11 Cyanocobalamin 1,000 Mcg Tablet PO Not Given DAILY [facility] Cyclobenzaprine HCl 10 mg 12/06/24 17:00 12/07/24 20:53 Cyclobenzaprine Hcl 10 Mg Tablet PO 10 mg TID PRN Administration Muscle Spasms Docusate Sodium 100 mg 12/06/24 21:00 12/08/24 08:11 Docusate Sodium 100 Mg Capsule PO Not Given Q12HR [facility] Duloxetine HCl 60 mg 12/07/24 09:00 12/08/24 07:49 Duloxetine Hcl 60 Mg Capsule.Dr PO 60 mg QAM SANYA Administration Ferrous Sulfate 325 mg 12/07/24 09:00 12/08/24 08:11 Ferrous Sulfate [address] BY MOUTH Not Given DAILY [facility] Fluticasone Propionate 2 spray 12/06/24 17:00 Fluticasone Propionate 0.05% Na Spr 16 Gm Btl (*Bkc) NASAL BID PRN nasal congestion Hydromorphone HCl 0.5 mg 12/06/24 17:00 12/07/24 09:05 Hydromorphone Hcl Inj (*Crx) 1 Mg/Ml Syr IV PUSH 0.5 mg Q2H PRN Administration Pain Rated 7-10 Irbesartan 75 mg 12/07/24 09:00 12/08/24 07:49 Irbesartan 75 Mg Tablet PO 75 mg DAILY [facility] Administration Loratadine 10 mg 12/07/24 09:00 12/08/24 07:49 Loratadine 10 Mg Tablet PO 10 mg QAM [facility] Administration Multivitamins/Minerals 1 tablet 12/07/24 09:00 12/08/24 08:11 Opti-Gen Tab PO Not Given DAILY [facility] Ondansetron HCl 4 mg 12/06/24 17:00 12/06/24 18:18 Ondansetron Inj 4 Mg/2 Ml Vial IV PUSH 4 mg Q8H PRN Administration Nausea And Vomiting Oxycodone/Acetaminophen 1 tablet 12/07/24 08:11 Oxycodone/Acetaminophen (*Crx) 5-325 Mg Tablet PO Q4H PRN Pain Rated 4-6 Oxycodone/Acetaminophen 1 tab 12/07/24 08:11 12/08/24 12:03 Oxycodone/Acetaminophen (*Crx) 10-325 Mg Tablet PO 1 tab Q4H PRN Administration Pain Rated 7-10 Pantoprazole Sodium 40 mg 12/07/24 09:00 12/08/24 07:49 Pantoprazole 40 Mg Tablet PO 40 mg QAM SANYA Administration Senna/Docusate Sodium 1 tab 12/06/24 17:00 Senna/Docusate Sodium Tablet PO HS PRN Constipation Vitamin D 2,000 units 12/07/24 09:00 12/08/24 08:11 Cholecalciferol 1,000 Units Tablet PO Not Given DAILY [facility] Vitamin E 400 unit 12/07/24 09:00 12/08/24 08:11 Vitamin E 400 Unit Capsule PO Not Given QAM SANYA
[2024-12-08 21:30] VITALS: BP 115/70; PULSE 97; RESP 16; TEMP 36.9; O2SAT 98
[2024-12-09] MEDS: oxyCODONE/ACETAMINOPHEN (*CRX) 10-325 MG TABLET 1 TAB PO (04:00)
[2024-12-09 05:24] VITALS: BP 125/67; PULSE 105; RESP 16; TEMP 37.4; O2SAT 98
[2024-12-09] MEDS: AZELASTINE HCL NASAL 0.1% 137 MCG/SPR 30 ML BTL 1 SPRAY NASAL (09:36)
[2024-12-09] MEDS: OPTI-GEN TAB 1 TABLET PO (09:38)
[2024-12-09] MEDS: CYANOCOBALAMIN 1,000 MCG TABLET 1000 MCG PO (09:38)
[2024-12-09] MEDS: ASCORBIC ACID 500 MG TABLET 1000 MG PO (09:38)
[2024-12-09] MEDS: CHOLECALCIFEROL 1,000 UNITS TABLET 2000 UNITS PO (09:38)
[2024-12-09] MEDS: DOCUSATE SODIUM 100 MG CAPSULE PO (09:38)
[2024-12-09] MEDS: LORATADINE 10 MG TABLET PO (09:38)
[2024-12-09] MEDS: FERROUS SULFATE 325 MG TABLET DR BY MOUTH (09:38)
[2024-12-09] MEDS: VITAMIN E 400 UNIT CAPSULE PO (09:38)
[2024-12-09] MEDS: IRBESARTAN 75 MG TABLET PO (09:38)
[2024-12-09] MEDS: DULoxetine HCL 60 MG CAPSULE.DR PO (09:38)
[2024-12-09] MEDS: PANTOPRAZOLE 40 MG TABLET PO (09:38)
[2024-12-09] MEDS: oxyCODONE/ACETAMINOPHEN (*CRX) 5-325 MG TABLET 1 TABLET PO (09:48)
[2024-12-09 14:00] VITALS: BP 119/61; PULSE 96; RESP 14; TEMP 36.4; O2SAT 99
--- NOTE | 2024-12-09 15:03 | WPDNEUROSGPN ---
Progress Note: A&P Assessment and Plan (1) Status post lumbar spinal arthrodesis: Code(s): Z98.1 - Arthrodesis status Status: Acute Plan -Discharge home today -We discussed wound care at bedside -Follow up with Dr. Maya in clinic as scheduled in 6 weeks Subjective Date/time seen: 12/09/24 12:45 Interval history: He states that he is feeling much better today with respect to his pain. He continues to ambulate well. He would like to go home today. Review of Systems Review of Systems: All systems reviewed & are unremarkable except as noted in HPI and below Exam Narrative: AOx4 Incision c/d/i Moving legs well Objective Data Vital Signs Vital Signs: Vital Signs - 24 hr 12/08/24 20:00 12/08/24 21:30 12/09/24 05:24 Temperature 98.4 F 99.4 F Pulse Rate 97 105 H Respiratory Rate 16 16 Blood Pressure 115/70 125/67 Pulse Oximetry 98 98 Oxygen Delivery Room Air 12/09/24 08:20 Temperature Pulse Rate Respiratory Rate Blood Pressure Pulse Oximetry Oxygen Delivery Room Air Intake/Output Intake/Output: Intake & Output 12/06/24 12/07/24 12/08/24 12/09/24 23:59 23:59 23:59 23:59 Intake Total 620 3010 1086 240 Output Total 590 3560 Balance 30 -550 1086 240 Meds/Results Medications: Active Medications Generic Name Dose Route Start Last Admin Trade Name Freq PRN Reason Stop Dose Admin Al Hydrox/Mg Hydrox/Simethicone 20 ml 12/06/24 17:00 Mag Hydrox/Al Hydrox/Simeth 30 Ml Udc PO Q4H PRN Indigestion/Heartburn Ascorbic Acid 1,000 mg 12/07/24 09:00 12/09/24 09:38 Ascorbic Acid 500 Mg Tablet PO 1,000 mg DAILY SANYA Administration Azelastine HCl 1 spray 12/06/24 21:00 12/09/24 09:36 Azelastine Hcl Nasal 0.1% 137 Mcg/Spr 30 Ml Btl NASAL 1 spray Q12H SANYA Administration Bisacodyl 10 mg 12/06/24 17:00 Bisacodyl 10 Mg Suppository RECTAL DAILY PRN Constipation Cyanocobalamin 1,000 mcg 12/07/24 09:00 12/09/24 09:38 Cyanocobalamin 1,000 Mcg Tablet PO 1,000 mcg DAILY SANYA Administration Cyclobenzaprine HCl 10 mg 12/06/24 17:00 12/07/24 20:53 Cyclobenzaprine Hcl 10 Mg Tablet PO 10 mg TID PRN Administration Muscle Spasms Docusate Sodium 100 mg 12/06/24 21:00 12/09/24 09:38 Docusate Sodium 100 Mg Capsule PO 100 mg Q12HR SANYA Administration Duloxetine HCl 60 mg 12/07/24 09:00 12/09/24 09:38 Duloxetine Hcl 60 Mg Capsule.Dr PO 60 mg QAM SANYA Administration Ferrous Sulfate 325 mg 12/07/24 09:00 12/09/24 09:38 Ferrous Sulfate [address] BY MOUTH 325 mg DAILY SANYA Administration Fluticasone Propionate 2 spray 12/06/24 17:00 Fluticasone Propionate 0.05% Na Spr 16 Gm Btl (*Bkc) NASAL BID PRN nasal congestion Hydromorphone HCl 0.5 mg 12/06/24 17:00 12/07/24 09:05 Hydromorphone Hcl Inj (*Crx) 1 Mg/Ml Syr IV PUSH 0.5 mg Q2H PRN Administration Pain Rated 7-10 Irbesartan 75 mg 12/07/24 09:00 12/09/24 09:38 Irbesartan 75 Mg Tablet PO 75 mg DAILY SANYA Administration Loratadine 10 mg 12/07/24 09:00 12/09/24 09:38 Loratadine 10 Mg Tablet PO 10 mg QAM [facility] Administration Multivitamins/Minerals 1 tablet 12/07/24 09:00 12/09/24 09:38 Opti-Gen Tab PO 1 tablet DAILY SANYA Administration Ondansetron HCl 4 mg 12/06/24 17:00 12/06/24 18:18 Ondansetron Inj 4 Mg/2 Ml Vial IV PUSH 4 mg Q8H PRN Administration Nausea And Vomiting Oxycodone/Acetaminophen 1 tablet 12/07/24 08:11 12/09/24 09:48 Oxycodone/Acetaminophen (*Crx) 5-325 Mg Tablet PO 1 tablet Q4H PRN Administration Pain Rated 4-6 Oxycodone/Acetaminophen 1 tab 12/07/24 08:11 12/09/24 04:00 Oxycodone/Acetaminophen (*Crx) 10-325 Mg Tablet PO 1 tab Q4H PRN Administration Pain Rated 7-10 Pantoprazole Sodium 40 mg 12/07/24 09:00 12/09/24 09:38 Pantoprazole 40 Mg Tablet PO 40 mg QAM SANYA Administration Senna/Docusate Sodium 1 tab 12/06/24 17:00 Senna/Docusate Sodium Tablet PO HS PRN Constipation Vitamin D 2,000 units 12/07/24 09:00 12/09/24 09:38 Cholecalciferol 1,000 Units Tablet PO 2,000 units DAILY SANYA Administration Vitamin E 400 unit 12/07/24 09:00 12/09/24 09:38 Vitamin E 400 Unit Capsule PO 400 unit QAM SANYA Administration
--- NOTE | 2024-12-09 15:05 | PM.DS ---
DS: Admitting Diagnosis Discharge Date 12/09/2024 Admitting Diagnosis Lumbar spondylolisthesis DS: Discharge Diagnosis Discharge Diagnosis (1) Status post lumbar spinal arthrodesis: Code(s): Z98.1 - Arthrodesis status Status: Acute DS: Summary Hospital Course Hospital Course: Mr. Lnad is a 64-year-old male who presented for surgery on December 06. Please see the operative note for more details. He was transferred to the floor after surgery. He was requiring a fair amount of IV pain medication which was transitioned to oral medication on postoperative day 1. He started working with Physical therapy on postoperative day 1. His Hemovac drain was ready for removal on postoperative day 2. He continued to have quite a bit of pain on postoperative day 2, so he remained for an additional day of pain control. Physical therapy cleared him for discharge home. his pain was much better controlled by postoperative day 3. He was ambulating independently, voiding spontaneously, and tolerating oral intake. He was ready for discharge home on postoperative day 3. Time Spent with Patient Time attestation: Total time spent providing and/or coordinating discharge services: Discharge Plan Discharge Discharging Clinician: Elizabeth Francis Patient Disposition: Home, Self-Care Activity: other - see discharge instructions Diet: as tolerated Wound Care Instructions: other - see discharge instructions Discharge Instructions: Remove the Scopolamine patch that was placed behind your ear in 72 hours or less. Wash your hands after touching. INSTRUCTIONS AFTER YOUR LUMBAR FUSION ? Your incision is covered with skin glue. This will peel off on its own in 10-14 days. ? You may shower and get your incision wet with soap and water starting on post-operative day 3 (). Do not submerge the incision under water (like in a bathtub or swimming pool) for 6 weeks after surgery. Never apply ointments or lotions to the incision. ? The incision should be checked daily. Notify the office if there is drainage, redness, or if you have fever with a temperature of over 101 degrees. ? You are encouraged to walk as much as comfortable, with assistance as needed. For example, it may be beneficial to walk short distances hourly during the waking hours and gradually increase walking during your recovery period. Fatigue can be common. ? Avoid any bending, heavy lifting, or twisting movements. ? You have an [id number]-pound lift restriction until further advised by your physician (a gallon of milk weighs eight pounds). ? Make frequent position changes, avoiding long periods of sitting. Try not to sit more than 60 minutes at a time. ? You may engage in sexual activity in two weeks as tolerated. ? No housework, especially vacuuming, making beds, or doing laundry until seen in the office. ? You may walk stairs carefully. ? Minimize long car rides for the first two weeks. You may resume driving when you feel comfortable; however, you may not drive if still taking narcotic pain medications. ? You should start with Tylenol 1000mg every 6 hours for pain first. If the Tylenol is not effective, you may then take oxycodone. ? The physician may order pain medication and/or muscle relaxers. As time goes by, you should require less of these. Always take your medication as ordered, and only if needed. If you take more than prescribed, it will not be refilled early. If you feel you require narcotic medication refill, kindly give the office a 72-hour notice. No refills are given over the weekend. ? Avoid use of anti-inflammatory medications (like Ibuprofen, Aleve, Advil, Motrin) for up to three months following fusion surgery. Use of these medications may slow healing. ? Resume your usual diet. Constipation is a common problem postop. You may use any over the counter laxative, or stool softener. Always follow the bottle directions. ? Use of nicotine products should be stopped completely. Smoking can slow the healing process significantly. It can also increase the chance for developing postop pneumonias and other complications. Please avoid use of all nicotine products for at least three months after spine surgery. FOLLOW-UP ? You should have an appointment with Dr. Maya in about 6 weeks. Please call the office if you need to confirm or change your appointment. ? Schedule an appointment with your primary care physician in the near future to ensure he/she is aware of your recent hospitalization and surgery and to ensure your other medical issues are being properly managed. This is particularly important to ensure your blood sugars are being well-controlled while you are healing from surgery. FOR AN EMERGENCY AFTER HOURS OR ON A WEEKEND, PLEASE CALL THE MEDICAL EXCHANGE AT ? Call the office for: o Appointment set up. o Fever greater than 101 degrees. o Increased pain, swelling, redness or drainage from your incision. o Trouble swallowing or breathing. o Pain, swelling or weakness of your legs. o Any other question or concerns you may have. Paul Maya MD Neurosurgery [facility] [address], [place] [address] Patient Language: Japanese Stand Alone Forms: General Discharge Instructions Follow-up/Referrals: Paul Maya MD [Physician] - Discharge Medications: New sennosides-docusate sodium [Senokot-S] 8.6-50 mg Tablet 1 tab PO BID PRN (Reason: Constipation) 7 Days Qty: 14 0RF oxycodone-acetaminophen 5-325 mg Tablet 1 tablet PO Q4H PRN (Reason: Pain Rated 4-6) 7 Days Qty: 42 0RF cyclobenzaprine 10 mg Tablet 10 mg PO TID PRN (Reason: Muscle Spasms) 10 Days Qty: 30 0RF Continued omeprazole 20 mg capsule,delayed release(DR/EC) 20 mg PO DAILY ascorbic acid (vitamin C) 1,000 mg Tablet 1 g PO DAILY cyanocobalamin (vitamin B-12) [Vitamin B-12] 1,000 mcg Tablet 1,000 mcg PO DAILY vitamin E mixed 400 unit Capsule 400 unit PO DAILY Multivitamin 50 Plus Tablet 1 tablet PO DAILY fexofenadine [Comfort Allergy] 180 mg tablet 180 mg PO DAILY fluticasone propionate 50 mcg/actuation spray,suspension 2 spray intranasal BID PRN (Reason: nasal congestion) Rx Instructions: administer into each nostril ferrous sulfate [FeroSul] 325 mg (65 mg iron) tablet 325 mg PO DAILY acetaminophen [Tylenol Extra Strength] 500 mg tablet 1,000 mg PO Q6H PRN (Reason: pain) azelastine 137 mcg (0.1 %) aerosol,spray 1 spray intranasal Q12H Qty: 30 3RF Rx Instructions: administer into each nostril duloxetine 60 mg capsule,delayed release(DR/EC) 60 mg PO . q.a.m. Qty: 90 3RF ergocalciferol (vitamin D2) 1,000 unit capsule 2,000 unit PO DAILY irbesartan 75 mg tablet 75 mg PO DAILY Qty: 30 11RF Patient Comments: qam Held celecoxib 200 mg capsule 200 mg PO BID PRN (Reason: pain) Qty: 180 3RF Hold Instructions: Resume on 03/09/25. Rx Instructions: rocha pay with good Rx discount $48.00 Date of admission: 12/07/24 18:37 Primary Care Provider: Dylan Rebolledo Admitting Provider: Paul Maya Attending physician on admission: Paul Maya Condition: Stable
--- NOTE | 2024-12-21 12:05 | W.PM.PROC2 ---
Procedure Note - Detailed Date of Procedure 12/06/24 Pre-op Diagnosis L4-5 spondyolithesis Post-op Diagnosis Same Procedure Performed L4-5 complete laminectomy and bilateral facetectomy, L4-5 complete diskectomy and interbody arthrodesis utilizing titanium interbody devices and local autograft, L4-5 pedicle screw instrumentation Surgeon Paul Maya MD Anesthesia General Description of Procedure Patient was brought to the operating room in the supine position, was sedated, intubated placed under general anesthesia in routine fashion. She was then turned into the prone position on an open [place] table. The of operation on his back was examined, marked for incision, prepped and draped in routine sterile fashion. Incision was marked over the L4-L5 spinous processes in the midline. This area was injected with 0.5% lidocaine with [id number] epinephrine. Intravenous antibiotics given prior to incision. Incision was made with a 10 blade scalpel down to the lumbodorsal fascia. A subperiosteal dissection of the muscle soft tissue away from spinous process lamina was performed with a subperiosteal elevator and Bovie cautery. A verifying x-rays obtained to verify the level of operation. At the L4-5 level the L4 spinous process was removed with a Arabella rongeur. Kerrison punches, curved curettes and a Leksell rongeur were used to remove lamina in the midline until the soft contents of the canal were encountered. Midas-Camilo drill was used to resect the pars bilaterally at L4. The inferior taken the process and facet of L4 could then be removed bilaterally. These +spinous process were stripped free of soft tissue and morselized for later use as interbody autograft. Kerrison punches and curved curettes were used to define a plane with the dura and removed bone ligament flush with the pedicle and through the foramina widely decompressing the exiting nerve roots. With the thecal sac retracted and protected the disc space was entered bilaterally using an 11 blade scalpel. Scrapers area sizes, curettes of various configurations, pituitary rongeur and a rasp were used to remove as much cartilaginous endplate and disc material as possible down to bleeding cortical flat surface on the opposing bones. The disc space was incised and appropriately sized interbody devices were chosen and filled with local autograft bone. The disc space was likewise filled with local autograft bone medially and anteriorly. The interbody devices were then placed with 2-3 mm countersink within the disc space bilaterally. Pedicle screw instrumentation was then performed at L4-L5 by observing and palpating the pedicle while he holes maintenance. Taken process above the pedicle using a Midas Camilo drill. The pedicle was then cannulated with a pedicle probe, checked for continuity with the ball probe, tapped with a 5.5 mm tap and 6.5 x 50 mm screw was placed into each pedicle. Rods were placed in the screw heads on either side and secured in position using the caps that purpose. A verifying x-rays obtained to verify good position of the instrumentation which was confirmed. Wound was then copiously irrigated with bacitracin irrigation all bleeding was stopped with bipolar and Bovie cautery and Gelfoam thrombin powder. A medium Hemovac drain was left in subfascial position buried out to the inferior right of the incision. The wound was closed in layered fashion with 2-0 Vicryl interrupted sutures in the lumbodorsal fascia and Jen's layer. 3-0 Vicryl buried interrupted sutures were placed in the dermis and the skin was closed with a running 4-0 Monocryl subcuticular stitch and dressed with Dermabond. The patient was allowed wake up in the operating room was taken to the recovery room in stable condition. There were no immediate complications of this operation. All counts reported correct at the end of the case. Blood loss was 200 cc. The patient was neurologically at his baseline postoperatively. CPT codes: 34528, 37333, 24590, 59821, 58210 Estimated Blood Loss 200 Drains Yes Complications None Condition Stable Disposition PACU [facility] Billing Surgery - Charge Forward: Surgery Billing
== END 2024-12-09 15:40 | disposition home or self-care (01) ==
LOC: ANHSURGERY 18:55 → ANH3MEDSUR 12-09 14:15
PROVIDERS: Admitting Provider Neurological Surgery; PCP Family Medicine; Visit Provider Neurological Surgery
PROC: (CPT 22612; principal; 2024-12-06 12:00)
DX: M43.16 Spondylolisthesis, lumbar region (principal); I11.9 Hypertensive heart disease without heart failure; I34.0 Nonrheumatic mitral (valve) insufficiency; E66.9 Obesity, unspecified; Z68.35 Body mass index [BMI] 35.0-35.9, adult; K21.9 Gastro-esophageal reflux disease without esophagitis; G47.31 Primary central sleep apnea; J32.9 Chronic sinusitis, unspecified; J30.2 Other seasonal allergic rhinitis; Z79.899 Other long term (current) drug therapy; Z87.891 Personal history of nicotine dependence
CPT/HCPCS: 22630; 63052; 22840; 22853; 20936; 97161; 97165; 97530; 97535; 99199; A9270; C1713; G0378; J0690; J1100; J1171; J2004; J2405; J2704; J3010; J3480; J7120

== ENCOUNTER 2025-01-20 13:54 | Outpatient (CLI) | payer OTHER, SELFPAY ==
--- NOTE | ~2025-01-20 | XR_ITS ---
3 VIEWS LUMBAR SPINE Ordering provider: Paul Maya MD History: . M47.816 - Spondylosis without myelopathy or radiculopathy... . Comparison: None. FINDINGS: VERTEBRAL BODIES:Compression fracture of T11 and T12 which is most likely chronic. No visible acute fracture or subluxation. Postoperative changes at the level of L4-L5. Degenerative changes of the spi ne. DISK SPACES: Disc spacer at the level of L4-L5. Otherwise, Normal. SOFT TISSUES: Normal. IMPRESSION: No acute osseous abnormality lumbar spine. Postoperative changes. Reviewed, dictated and finalized at location A.
--- OUTSIDE RECORDS SUMMARY | 2025-01-20 14:50 | XMS_ITS | Clinical Summary ---
Author Organization [facility] Address [address] [facility], [address] [address] Phone Care Team Providers Care Director Of Revenue Name Role Phone Dylan Rebolledo MD Primary [...] Recently Relevant to Health Maintenance Care Teams Director Of Revenue Relationship Specialty Start Date End Date Dylan Rebolledo MD [address] [address] PCP - General Family Medicine 09/08/20
--- OUTSIDE RECORDS SUMMARY | 2025-01-20 14:50 | XMS_ITS | Data Portability ---
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 Patient is on Celebrex 200 mg [...] patient more than half of this in xnrn-kt-heqw conversation Not available 03/26/2023 10:07:52 05/02/2023 05/02/2023 [...] injury to his kidneys. He may take inyr-mgy-xngibrd Tylenol the Celebrex which would be safe. [...] patient more than half of this in uezq-vh-qapi conversation Not available 05/02/2023 09:39:04 06/25/2023 06/25/2023 [...] procedure, administere d by provider 2022 023 In-Office Order, Internal Use Only DO Not Attach Compendium DO Not Attach Compendium, Do Not Delete/merge, [id number] 3 08:50:06 injection/a spiration joint/bursa (PROC) - in office procedure, administere d by provider 2022 023 [email or web address] In-Office Order, Internal Use Only DO Not Attach Compendium DO Not Attach Compendium, Do Not Delete/merge, 44703 3 09:43:12 Surgeries None recorded. Imaging XR, hip + pelvis, unilateral 2022 023 [email or web address] [facility] [place], [address], [place], [address], 3 08:21:45 XR, hand 2022 023 [email or web address] [facility] [place], [address] [facility] [address], [place], [address], 3 09:18:04 Medication Orders Kenalog 10 mg/mL suspension for injection 2022 023 [facility]armacy #[id number], [address] [place], [address], 3 12:57:39 ropivacaine (PF) 5 mg/mL (0.5 %) injection solution 2022 023 [facility], [address] [place], [address], 3 12:57:39 Kenalog 10 mg/mL suspension for injection 2022 023 [email or web address] [facility]/Pharmacy #2510, [address] [place], [address], 3 08:53:22 ropivacaine (PF) 5 mg/mL (0.5 %) injection solution 2022 023 [email or web address] [facility]/Pharmacy #2510, [address] [place], [address], 3 08:53:31 Patient TargetsNo targets recorded. Patient InstructionsNo instructions recorded. Reason for Referral None Reported. Results Created Date Observation Date Name Description Value Unit Range Abnormal Flag Note LastModifiedBy Organization Detail LastModifiedTime 03/13/20 22 XR, knee No observ ation record ed. [id number] [facility] [place] [address], [place], [address], 11/20/2022 13:36:27 03/26/20 23 XR, hand No observ ation record ed. [facility] [place] [address], [place], [address], 03/26/2023 10:05:01 05/02/20 23 XR, hip + pelvi s, unila teral No observ ation record ed. [facility] [place] [address], [place], [address], 05/02/2023 09:33:56 Result Notes None recorded. Problems Name Problem SNOMED Code Status Onset Date Resolution Date Notes Provider Name and Address Organization Details Recorded Time Heartburn 53297913 Active 2017 Not Available [facility] 3 13:31:47 Ankle pain 166129790 Active Not Available [facility] 3 13:31:47 Sprain of lateral ligament of ankle joint 580301814 Active Not Available [facility] 3 13:31:47 Osteoarthr itis 532015759 Active Not Available [facility] 3 13:31:47 Closed fracture of ankle 49355040 Active Not Available [facility] 3 13:31:47 Pain of right knee joint 6096888393534 00 Active 2021 Not Available [facility] 3 13:31:47 Contusion of foot 22586460 Active 2017 Not Available [facility] 3 13:31:47 Pain of bilateral hands 2131538084327 9109 Active 2022 HONG Pichardo null, [facility] 3 08:58:19 Acquired bilateral pes planus 7970478561112 9109 Active 2022 Yvonne Walker LIFE SCIENCE TECHNICIAN null, [facility] 3 09:53:06 Pain of left hip joint 2240279220750 00 Active 2022 Kimberley Jackson RMA null, [facility] 3 08:54:06 Pain of left hand 9202711107287 03 Active 2022 HONG Pichardo null, [facility] 3 08:46:18 Notes:back/neck problems, ey e problems, headaches, herniated disc, swollen or painful joints, wears glasses Problem Notes None recorded. Procedures Surgical History Date Name Laterality Status Provider Name and Address Organization Details Recorded Time Neck completed Not Available [facility] 09/2022 13:30:02 Imaging Results Imaging Date Name Status LastModified by Organiz ation Details LastModified Time 03/13/2022 XR, knee completed [id number] [facility] [place] [address], [place], [address], 11/20/2022 13:36:27 03/26/2023 XR, hand completed [facility] [place] [address], [place], [address], 03/26/2023 10:05:01 05/02/2023 XR, hip + pelvis, unilateral completed [facility] [place] [address], [place], [address], 05/02/2023 09:33:56 Procedure Notes None recorded. Medical [...] suspension for injection in office 2022 active [facility]: 0003- 0494- 20 Not Available Not Available [...] %) injection solution in office 2022 active [facility] 05527 -064- 01 Not Available Not Available Not Available Fluvirin 2852-3716 45 mcg (15 mcg x 3)/0.5 mL intramuscul ar suspension 03/13 completed Not Available Not Available Not Available Vitals Date Recorded Body mass index (BMI) Body height Body weight Provider Name and Address Organization Details Last Updated DateTime 03/13/2022 38.2 kg/m2 170.18 cm 262492.54 g Not Available [facility] 11/20/2022 13:31:24 Date Recorded Body height Body mass index (BMI) Body weight Provider Name and Address Organization Details Last Updated DateTime 03/26/2023 170.18 cm 38.5 kg/m2 905242.72 g Kimberley Jackson [facility] 03/26/2023 09:15:07 Date Recorded Body height Provider Name an d Address Organization Details Last Updated DateTime 05/02/2023 170.18 cm Kimberley Jackson [facility] 05/02/2023 08:53:11 Date Recorded Body height Provider Name an d Address Organization Details Last Updated DateTime 06/25/2023 170.18 cm Kimberley Jackson [facility] 06/25/2023 08:44:56 Social History Question Answer Notes LastModified by Organizat ion Details LastModified Time Tobacco Smoking Status Former Smoker quit 26 Jasmyne kwong, [facility] 06/25/2023 08:44:14 What Is Your Level Of Alcohol Consumption? Occasional [id number] Information not available 11/20/2022 Sex: Unknown Functional Status None recorded. Mental Status None recorded. Family History Relationship Description Onset Age of this Age Resolved Age Notes LastModified by Organization Details LastModified Time Father Family history of malignant neoplasm [email or web address] Not available 06/25 08:44:13 Mother Family history of malignant neoplasm [email or web address] Not available 06/25 08:44:13 Brother Diabetes mellitus [id number] Not available 11/20/2022 13:30:04 Sister Diabetes mellitus [id number] Not available 11/20/2022 13:30:04 Medical History Condition [...] YOU BEEN HOSPITALIZED OR SEEN IN [facility] IN THE PAST YEAR ? N [...] SNOMED-CT Code Diagnosis ICD10 Code Diagnosis Note [id number] Tye Castillo MD [facility] [place] [address] [place] [address] 03/13/2022 00:00:00 03/13/2022 10:38:23 [id number] Tye Castillo MD [facility] [place] [address] [place] [address] 03/26/2023 08:38:34 03/26/2023 10:10:15 Pain of bilateral hands 1154455597 2387089 M79.641 M79.642 Acquired b ilateral pes planus 6160694911 0116276 M21.41 M21.42 [id number] Tye Castillo MD [facility] [place] [address] [place] [address] 05/02/2023 08:44:01 05/02/2023 12:29:17 Pain of left hip joint 8698743601 42629 M25.460 [id number] Tye Castillo MD [facility] [place] [address] [place] [address] 06/25/2023 08:42:31 06/25/2023 09:22:21 Pain of left hand 2614270429 19111 M79.642 Health Concerns Section Related Observation LastModified by Organization Detai ls LastModified Time None Recorded Concern Status LastModified by Organization Details LastModified Time None Recorded Advance Directives Directive None Recorded Payers Encounter Date Sequence Insurance Name Policy Number Policy Hurt Covered Member ID Hurt Member ID Guarantor Name 03/26/2023 1 [employer] [id number] Oscar Land [id number] Josehp Land 05/02/2023 1 [employer] [id number] Oscar Land [id number] Joseph Land 06/25/2023 1 [employer] [id number] Oscar Land [id number] Joseph Land
--- OUTSIDE RECORDS SUMMARY | 2025-01-20 14:50 | XMS_ITS | Continuity of Care Document ---
Author Organization [facility] Address [address] [facility] [address] [facility] [address] [place] [address] Phone Care Team Providers Care Reinforced Concrete Inspector Name Role Phone Lucas Escalera Unavailable Unavailable Procedures Procedure Date Eye Exam & Treatment Refraction Advance Directives Directive Yes / No Effective Date File Name No Information Encounters Encounter Description Practice Location Reason(s) For Visit Diagnoses Date Provider Providers Copied on Encounter [facility], [address] [place], [place], [id number], [place] tel:[phone] [facility] No Information [address] [facility] [address], [place], [address], [place]. tel:[phone] Family History Family Member Type Diagnosis Age At Onset No Information Payers Payer name Insurance type Covered alliance party ID Authoriza tion(s) No Information Social [...]
--- OUTSIDE RECORDS SUMMARY | 2025-01-20 14:50 | XMS_ITS | Clinical Summary ---
Author Organization [facility] Address [address] [place] [address] Care Team Providers Care Contractor Buyer Name Role Phone Dylan Rebolledo MD Primary Care Provider [phone] Allergies No known active allergies Medications omeprazole [...] 03/13/2022 Contusion of foot 05/27/2018 Heartburn 05/27/2018 Surgical History Surgery Date Site/Laterality Comments CERVICAL [...] on file Legal Sex Female 10:23 AM DELINQUENCY COUNSELOR Gender Identity Not on file Sexual Orientation Not on file Obstetrics History Last Filed Vital Signs Vital Sign Reading Time Taken Comments Blood Pressure - - Pulse - - Temperature - - Respiratory Rate - - Oxygen Saturation - - Inhaled Oxygen Concentration - - Weight 107 kg (236 lb) 10/12/2024 8:20 AM DELINQUENCY COUNSELOR Height 170.2 cm (5' 7 ) 10/12/2024 8:20 AM DELINQUENCY COUNSELOR Body Mass Index 36.96 10/12/2024 8:20 AM DELINQUENCY COUNSELOR Plan of Treatment Health Maintenance Due Date [...] on patient's age to complete this topic Insurance Care Teams Contractor Buyer Relationship Specialty Start Date End Date Dylan Rebolledo MD [address] [address] PCP - General Family Medicine 10/12/24
--- OUTSIDE RECORDS SUMMARY | 2025-01-20 14:50 | XMS_ITS | Referral Summary ---
Author Organization [facility] Address [address] [place] [address] Care Team Providers Care Patient Financial Services Specialist Name Role Phone Dylan Rebolledo MD Primary Care Provider [phone] Allergies No known active allergies Medications omeprazole [...] on file Legal Sex Female 10:23 AM ASSOCIATE JUSTICE Gender Identity Not on file Sexual Orientation Not on file Last Filed Vital Signs Vital Sign Reading Time Taken Comments Blood Pressure - - Pulse - - Temperature - - Respiratory Rate - - Oxygen Saturation - - Inhaled Oxygen Concentration - - Weight 107 kg (236 lb) 10/12/2024 8:20 AM ASSOCIATE JUSTICE Height 170.2 cm (5' 7 ) 10/12/2024 8:20 AM ASSOCIATE JUSTICE Body Mass Index 36.96 10/12/2024 8:20 AM ASSOCIATE JUSTICE Plan of Treatment Not on file Insurance O [facility] HMO Care Teams Patient Financial Services Specialist Relationship Specialty Start Date End Date Dylan Rebolledo MD [address] [address] PCP - General Family Medicine 10/12/24
== END 2025-01-20 13:55 | disposition home or self-care (01) ==
PROVIDERS: PCP Family Medicine; Visit Provider Neurological Surgery
DX: M47.816 Spondylosis without myelopathy or radiculopathy, lumbar region (principal)
CPT/HCPCS: 72100

== ENCOUNTER 2025-03-24 09:00 | Outpatient (RCR) | payer OTHER, SELFPAY ==
--- NOTE | 2025-02-15 09:02 | OPREHPOC ---
Outpatient Therapy Plan of Care This is a Multidisciplinary Plan of Care that may contain components documented by all disciplines (PT, OT, and ST.) PT Problem 1 PT Problem #1 Knowledge Deficit PT Goal 1 Goal / Goal Update 1* independent with HEP- land and aquatic 2* correct body mechanics with lifting from the floor Target Visit 8 PT Problem 2 PT Problem #2 Pain PT Goal 1 Goal / Goal Update 1* pt report pain rating at worst of 5/10 with increased activity level 2* pt report walking/standing tolerance with activity of 45 minutes Target Visit 8 PT Problem 3 PT Problem #3 Impaired Strength PT Goal 1 Goal / Goal Update 1* increase hip extension strength to 4+/5, to improve stability to spine and trunk 2* pt stand upright trunk/ no trunk flexion with walking Target Visit 8
--- NOTE | 2025-02-15 09:02 | PTOPEVAL1 ---
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 He does not have any restrictions in activity level. Since surgery, his radicular pain is resolved. 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 Back Index self rating of 42% limitation in activity level. Reports sitting and walking are limited due to pain. History includes: chronic pain: neck, hands, thoracic, both hips and knees and R ankle. With the evaluation: trunk and hip extension increase pain, with muscle weakness; 2 minute walking test distance of 460' with increase knee pain; decreased hip extension ROM; he has been increasing his activity level. Skilled PT services are indicated for modalities to decrease pain; use of water and land for therapeutic exercises to increase trunk strength and hip ROM with education for HEP, posture/body mechanics and pain management/contol. Plan of Care Interventions Aquatic Therapy,Hot Pack/Cold Pack,Manual Therapy, Neuro Re-education,Patient/Caregiver Education, Therapeutic Activities,Therapeutic Exercise, Ultrasound PT Services Indicated Yes Treatment Frequency and 1-2x/wk for 8 visits Duration These treatments will address the objective and functional deficits as defined above. The patient will be advanced safely and appropriately in order for the patient to progress towards his/her prior level of function. Additional exercises will be introduced and as well as a comprehensive home exercise program upon discharge, if needed, ?to ensure carryover of functional gains achieved in the clinic. This treatment plan has been reviewed and agreement upon by the patient.
--- NOTE | 2025-03-24 09:43 | OPREHPOC ---
Outpatient Therapy Plan of Care This is a Multidisciplinary Plan of Care that may contain components documented by all disciplines (PT, OT, and ST.) PT Problem 1 PT Problem #1 Knowledge Deficit PT Goal 1 Goal / Goal Update 1* independent with HEP- land and aquatic 2* correct body mechanics with lifting from the floor 03-24-25 d/c goals met Target Visit 8 Progress Met PT Problem 2 PT Problem #2 Pain PT Goal 1 Goal / Goal Update 1* pt report pain rating at worst of 5/10 with increased activity level 2* pt report walking/standing tolerance with activity of 45 minutes -25 d/c goals met Target Visit 8 Progress Met PT Problem 3 PT Problem #3 Impaired Strength PT Goal 1 Goal / Goal Update 1* increase hip extension strength to 4+/5, to improve stability to spine and trunk 2* pt stand upright trunk/ no trunk flexion with walking 03-24-25 d/c goals met Target Visit 8 Progress Met
--- NOTE | 2025-03-24 09:43 | PTOPDC ---
Assessment and note entered by Kristin Rodriguez, PT Assessment Status Discharge ICD-10 Condition Codes (PT) Pain in low back M54.50,Encounter for other orthopedic aftercare Z47.89 Onset 12-06-24 Subjective Information am having less pain and moving and doing more; doing the HEP, stationary bike, chair exercises and yard work; going to join the [facility] for the water exercises; ready to be done with therapy; Reported Pain Level Pain Score Self Report Additional Pain Score Comments pain range of the past week: 1-3/10; more pain over thoracic area, vs lumbar area increase pain: sit too long and go to stand reported walking/standing tolerance of 1 hour Assessment PT Clinical Summary Joseph has received a total of 8 PT sessions. Compared to the initial eval, he has improved in all areas: now reports pain range of 1-3/10; self assessment with Back Index rating of 24% limitation in activity level; reported standing/ walking tolerance of 1 hour; increase strength of trunk and hips to 4+/5; education for HEP- aquatic and land, body mechanics and pain management--alternate tasks, frequent position changes and stretching. The goals were achieved. Discharge PT and he is to continue with HEP. Plan of Care PT Services Indicated No
== END 2025-03-24 11:10 | disposition home or self-care (01) ==
LOC: ANHPT 09:00
PROVIDERS: PCP Family Medicine; Visit Provider Neurological Surgery
DX: Z47.89 Encounter for other orthopedic aftercare (principal); M54.50 Low back pain, unspecified; Z98.1 Arthrodesis status
CPT/HCPCS: 97110; 97113; 97161; 97530

== ENCOUNTER 2025-06-29 08:00 | Outpatient (RCR) | payer OTHER, SELFPAY ==
--- NOTE | 2025-06-01 08:26 | OPREHPOC ---
Outpatient Therapy Plan of Care This is a Multidisciplinary Plan of Care that may contain components documented by all disciplines (PT, OT, and ST.) PT Problem 1 PT Problem #1 Knowledge Deficit PT Goal 1 Goal / Goal Update Patient to demonstrate independence with HEP for improved self-reliance of symptom management. Target Visit 5 PT Problem 2 PT Problem #2 Pain PT Goal 1 Goal / Goal Update 1. Patient to report an improvement in radiating symptoms by 50% to increase ability to perform ADLs. 2. Patient to report 50% improvement in quantity and quality of sleep due to radiculopathy symptoms . Target Visit 10 PT Problem 3 PT Problem #3 Impaired Strength PT Goal 1 Goal / Goal Update 1. Patient to hold a long sitting position >=10 seconds for improved upper abdominal control and trunk stability. 2. Patient to demonstrate the ability to slowly lower bilateral LE?s from 90 deg hip flexion to 45 deg hip flexion for improved lower abdominal control. Target Visit 10 PT Problem 4 PT Problem #4 Impaired Endurance PT Goal 1 Goal / Goal Update Patient to improve distance ambulated during 6MWT from 1375 feet to 1500 feet to demonstrate an improvement in ADL endurance. Target Visit 10 PT Problem 5 PT Problem #5 Impaired Functional Mobility PT Goal 1 Goal / Goal Update Patient to complete floor to/from waist transfers/ lifts with no reported back pain or cueing required to ensure correct mechanics with functional lifting activities. Target Visit 10
--- NOTE | 2025-06-01 08:26 | PTOPEVAL1 ---
Assessment and note entered by Brandi Marie, PT Evaluation Information Assessment Status Evaluation ICD-10 Condition Codes (PT) Radiculopathy, lumbar region M54.16 Subjective Information Primary Complaint: Low Back Pain<>L post hip to the anterolateral thigh and ant knee History of current condition: Pt reports symptoms started the last week of March. 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 He reports during the activity no issues but the day afterwards he started to have some low back pain. Then he started to have increasing pain with L LE symptoms. He was unable to walk or drive for 3 days and had to call an ambulance to get home from vacation. He had an injection which helped and been seeing a chiropractor. Sxs made worse with: sit<>stand, prolonged walking or standing, difficulty ascending stairs, lifting /carrying, bending forward Sxs improved with: side lying CLOF: difficulty walking, yard work, unable to golf PLOF: h/o back pain but able to perform all ADLs afterwards with therapy Reported Pain Level Pain Score 1: Self Report Additional Pain Score Comments thigh pain currently 0/10, worst 2/10 Assessment PT Clinical Summary Pt is a 65 year old male who presents to physical therapy with a primary complaint of low back pain and L LE radicular symptoms that do not cross the knee. Pt demonstrates centralizing low back pain, decreased mobility, decreased endurance, abnormal posture, gait deficit, and decreased flexibility that limit their ability to perform ADLs. He is sefl reporting 44% disability according to the Modified Oswestry. Directional preference unclear this date and patient has h/o anterolisthesis upon imaging. Pt will benefit from skilled physical therapy to address the above listed deficits and return to PLOF. HEP instructed and written handout provided, EX tolerated well with no adverse effects to note post-session. Pt was educated on importance of adherence to HEP. Pt was also educated on anatomy, prognosis, home modalities, and PT POC. Plan of Care Interventions Aquatic Therapy,Electrical Stimulation,Gait Training,Hot Pack/Cold Pack,Manual Therapy,Neuro Re-education,Patient/Caregiver Education, Therapeutic Activities,Therapeutic Exercise,Self- Care/Home Management PT Services Indicated Yes Treatment Frequency and 2x/wk for 10 Duration These treatments will address the objective and functional deficits as defined above. The patient will be advanced safely and appropriately in order for the patient to progress towards his/her prior level of function. Additional exercises will be introduced and as well as a comprehensive home exercise program upon discharge, if needed, ?to ensure carryover of functional gains achieved in the clinic. This treatment plan has been reviewed and agreement upon by the patient.
--- NOTE | 2025-07-01 11:13 | PTOPDC ---
Assessment and note entered by Orly Mendez, PT Evaluation Information Assessment Status Discharge ICD-10 Condition Codes (PT) Radiculopathy, lumbar region M54.16 Subjective Information Reports he is 80-90% better since starting therapy . He does not have increased pain and going up and down stairs have been easier. Continue to need to sleep on his side before laying on his back. much better than when he first came here, more stable on his feet. Assessment PT Clinical Summary Pt received a total of 10 treatment sessions and demos good progress with skilled PT. Demos significant improvement in ROM and strength, standing and ambulation tolerance. He partially met goals pertaining to endurance and strength, however, he states he is compliant with HEPs and agreeable to DC at this time. Recommendation and education provided for wellness/maintenance exercises to further improve functional mobility safely. Skilled PT discontinued at this time. Plan of Care PT Services Indicated No
== END 2025-07-01 16:57 | disposition home or self-care (01) ==
LOC: ANHPT 08:00
PROVIDERS: PCP Family Medicine; Visit Provider Pain Medicine Pain Medicine
DX: M54.16 Radiculopathy, lumbar region (principal)
CPT/HCPCS: 97110; 97140; 97161; 97530; 97750

== ENCOUNTER 2025-08-05 13:28 | Outpatient (CLI) | payer OTHER, SELFPAY ==
--- NOTE | ~2025-08-05 | MR_ITS ---
EXAM/PROCEDURE: MR lumbar spine wo con HISTORY: M51.26 - Other intervertebral disc displacement, lumbar r... COMPARISON: August 05, 2024 TECHNIQUE: Noncontrast enhanced multiplanar lumbar spine MRI performed. FINDINGS: Patient has undergone interval bilateral transpedicle posterior fusion of L4-5 with posterior decompression. Small amount of fluid loculation present in the posterior surgical bed. Degenerative changes present involving the lateral the surgical level. The conus tapers normally at L1. Level specific findings as follows: T12-L1: Mild degenerative change L1-2: Mild degenerative change L2-3: Mild to moderate hyperostosis of the facets with thickening of ligamentum flavum and mild posterior spondylosis. No spinal canal stenosis or discrete disc protrusion. Mild to moderate bilateral neural foraminal narrowing. L3-4: Moderately severe degenerative disc and facet changes results in mild stenosis in the left lateral recess. No spinal canal stenosis. No discrete disc protrusion. Moderate left and mild to moderate right-sided neural foraminal narrowing. L4-5: No spinal canal stenosis. A 2.6 x 1.5 x 1.1 cm fluid accumulation posterior to the thecal sac as can be seen on image 24 series 6, and image 9 series 4. Infiltrative changes in the posterior soft tissues also noted. L5-S1: No severe degenerative changes. Mild bilateral neural foraminal narrowing. IMPRESSION: 1. Postsurgical fusion L4-5 with posterior decompression and no evidence of spinal canal stenosis. A small amount of fluid along the posterior margin of the thecal sac may represent small seroma. 2. Other level specific findings as above. Reviewed, dictated and finalized at location A. [facility] IMPRESSION: 1. Postsurgical fusion L4-5 with posterior decompression and no evidence of spi nal canal stenosis. A small amount of fluid along the posterior margin of the t hecal sac may represent small seroma. 2. Other level specific findings as above.
== END 2025-08-05 13:29 | disposition home or self-care (01) ==
LOC: MICIMG 13:29
PROVIDERS: PCP Family Medicine; Visit Provider Neurological Surgery
DX: M51.26 Other intervertebral disc displacement, lumbar region (principal); Z98.1 Arthrodesis status
CPT/HCPCS: 72148

== ENCOUNTER 2025-09-02 10:06 | Outpatient (CLI) | payer OTHER, SELFPAY ==
[2025-09-02 11:07] LABS: Hematocrit 39.4 % (42.0-52.0); Hemoglobin 13.0 g/dL (14.0-18.0); Mean Corpuscular HGB Conc 33.0 g/dl (32-36); Mean Corpuscular Hemoglobin 28.7 pg (26-34); Mean Corpuscular Volume 87.0 fl (80-100); Platelet Count Result 246 k/mm3 (150-375); Red Blood Count 4.53 M/mm3 (4.6-6.20); White Blood Count 8.1 K/mm3 (4.5-10.0)
[2025-09-02 11:11] LABS: Add Urine Microscopic? NO; Appearance Urine Clear (Clear); Glucose Urine UA Negative (Negative); Leukocyte Esterase Ur Negative LEU/UL (Negative); Nitrate Urine Negative (Negative); Specific Grav Ur 1.012 (1.001-1.035)
[2025-09-02 11:24] LABS: Anion Gap 4 mmol/L (4-12); Blood Urea Nitrogen 16 mg/dL (9-20); Calcium 9.1 mg/dL (8.4-10.2); Carbon Dioxide 27 mmol/L (22-30); Chloride 108 mmol/L (98-107); Estimated Glomerular Filt Rate > 60; Glucose 89 mg/dL (65-110); Potassium 4.0 mmol/L (3.4-5.0); Sodium 139 mmol/L (137-145)
[2025-09-02 11:32] LABS: INR 1.1; Partial Thromboplastin Time 35.3 Seconds (22.3-36.8); Prothrombin Time 14.4 Seconds (11.1-14.7)
== END 2025-09-02 10:07 | disposition home or self-care (01) ==
PROVIDERS: PCP Family Medicine; Visit Provider Neurological Surgery
DX: M51.26 Other intervertebral disc displacement, lumbar region (principal); Z01.818 Encounter for other preprocedural examination
CPT/HCPCS: 36415; 80048; 81003; 85027; 85610; 85730; 86850; 86900; 86901

== ENCOUNTER 2025-09-13 03:47 | Day surgery (SDC) | payer OTHER, SELFPAY ==
--- NOTE | 2025-09-02 10:08 | PC.NURSE ---
[facility] has started construction of its new state of the art ER which will open Spring 2026. With this, we anticipate parking may be a challenge for some our surgical patients and families. Parking spaces are limited but are available for all Surgical, obstetrics, and ER patients sharing this lot. If you arrive and find you are having a hard time finding a parking space, please note that we understand the challenges, please drive around the hospital and park near Hospital Entrance 1. When you enter this entrance, you can ask a volunteer to direct or take you back to the surgical waiting area to check in. We appreciate everyone?s understanding of these expected challenges while we build for your future. Report to the Outpatient Waiting Room, entrance under the green pavilion located off [address], at time _6 AM on date __09/13/25 . Planned Procedure Time: _7:30 AM .? Time changes happen often and if your time is changed the preop area will call you the afternoon before. - You and your visitor will be asked to self-screen and do not enter if you have any COVID symptoms. Please call surgeon if you need to reschedule. - A mask is optional within the hospital at this time. Patients may have clear liquids (water, carbonated beverages, clear teas, apple juice) until 3 hours prior to surgery( 4:30 AM) with a maximum of 20 ounces. - No food from midnight until time of surgery and no smoking, or chewing tobacco (or any form of nicotine). No chewing gum, candy or mints. Take only the following medications with a SIP of water on the morning of surgery: ____DULOXETINE DO NOT STOP ANY OF YOUR OTHER PRESCRIPTION MEDICATIONS PRIOR TO SURGERY EXCEPT THE FOLLOWING Hold all vitamins and supplements for 3 days per anesthesiologist.LAST DOSE 09/09/25 Medications to discontinue per physician NONE Date to take last dose Please no make-up, nail hong konger, hairspray, perfume, deodorant, or body powder the day of surgery.? No jewelry (including any body piercings) or valuables the day of surgery, leave them at home.? Please take a shower or bath the night before, or the morning of, surgery with an antibacterial soap.? Wear comfortable, loose fitting clothing.? Children are encouraged to wear pajamas. - Jewelry must be removed prior to entering the operating room.? Rings and piercings that are not removed may be cut off. - The hospital will not accept responsibility for valuables.? - Please leave all valuables, including medications, at home the day of surgery. If you are going home after surgery, a licensed milk driver must drive you home.? - NO public transportation without another adult if you receive anesthesia. - We recommend that an adult stay with you for 24 hours following discharge. - We also recommend that you do not drive, make important decision, drink alcoholic beverages, or take any drugs that were not prescribed by your health care provider for at least 24 hours after your discharge time. For Pediatric surgeries, we recommend two adults accompany the child home. Follow any additional instructions given to you from your surgeon. VERBAL AND WRITTEN instructions given to __PATIENT and asked if any additional questions and then verbalized understanding. Patient advised to call surgeon office or pre surgery nurse liaison [phone] if any additional questions.
[2025-09-02 10:13] VITALS: BMI 37.3
[2025-09-02 10:41] VITALS: BP 146/85; PULSE 83; RESP 18; TEMP 37.1; O2SAT 100
[2025-09-13] VITALS (14 sets, daily range): BP systolic 93–125; BP diastolic 55–67; PULSE 79–109; RESP 12–18; TEMP 35.9–36.9; O2SAT 90–100
--- NOTE | ~2025-09-13 | XR_ITS ---
EXAMINATION: XR fluoroscopy no charge DATE: 09/13/2025 12:38 INDICATION: L3-L4 posterior lumbar interbody fusion TECHNIQUE: 4 fluoroscopic images of the lower lumbar spine were obtained procedure performed by Dr. Maya. Radiologist was not present for the imaging or procedure. The amount of fluoroscopy time used during this procedure was 0.1 minutes. The dose area product was 0.688 mGym^2. COMPARISON: None. FINDINGS: Tissue retractors and lap sponge markers project posterior to the lower lumbar spine. Combined instrumented L4-L5 anterior and posterior spinal fusion with interbody fusion device and bilateral vertical gisel and pedicle screw fixation. The tip of a metallic probe projects over the junction of the vertical gisel and pedicle screws at L4. IMPRESSION: 1. Fluoroscopy utilized during combined instrumented L4-L5 anterior and posterior spinal fusion. Reviewed, dictated and finalized at location A. ISTICAL MODELER IMPRESSION: 1. Fluoroscopy utilized during combined instrumented L4-L5 anterior and posteri or spinal fusion.
--- OUTSIDE RECORDS SUMMARY | 2025-09-13 03:49 | XMS_ITS | Clinical Summary ---
Author Organization [facility] Address [address] [place] [address] Care Team Providers Care Adding Machine Servicer Name Role Phone Dylan Rebolledo MD Primary Care Provider [phone] Allergies No known active allergies Medications omeprazole [...] on file Legal Sex Female 10:23 AM BENDING ROLL HAND Gender Identity Not on file Sexual Orientation Not on file Last Filed Vital Signs Vital Sign Reading Time Taken Comments Blood Pressure - - Pulse - - Temperature - - Respiratory Rate - - Oxygen Saturation - - Inhaled Oxygen Concentration - - Weight 107 kg (236 lb) 10/12/2024 8:20 AM BENDING ROLL HAND Height 170.2 cm (5' 7) 10/12/2024 8:20 AM BENDING ROLL HAND Body Mass Index 36.96 10/12/2024 8:20 AM BENDING ROLL HAND Plan of Treatment Health Maintenance Due Date Last Done Comments Breast Cancer Screening-Mammogram 1961 Cervical Cancer Screening 1961 Colon Cancer Screening-Colonoscopy 1961 Depression Screening 1961 Hepatitis C Screening 1961 Hepatitis B Screening 1979 Regular Well Visit/Exam 18-64 1979 Zoster Vaccine (1 of 2) 2011 DTaP/Tdap/Td Vaccine (2 - Td or Tdap) 08/27/2024 08/27/2014 Influenza Vaccine (#1) 2025 , 08/21/2023, 08/23/2022, Additional history exists Pneumococcal vaccine <65 Aged Out No longer eligible based on patient's age to complete this topic Insurance Care Teams Adding Machine Servicer Relationship Specialty Start Date End Date Dylan Rebolledo MD [address] [address] PCP - General Family Medicine 10/12/24
--- OUTSIDE RECORDS SUMMARY | 2025-09-13 03:49 | XMS_ITS | Clinical Summary ---
Author Organization [facility] Address [address] [facility], [address] [address] Phone Care Team Providers Care Family Dinner Service Specialist Name Role Phone Dylan Rebolledo MD [...] (HCV) Screening 1961 TdaP Immunization 1961 Cologuard 2006 Immunochemical Fecal Occult Blood 2006 Pneumococcal Immunization (5 0+ years) (1 of 1 - PCV) 2011 Zoster Immunization (1 of 2) 2011 Influenza Immunization (#1) 2025 SARS-COV-2 Immunization (2023- season) 2025 Colonoscopy 09/04/2027 09/04/2020, 06/13/2014 Colorectal Cancer Screening 09/04/2027 Respiratory Syncytial Virus (RSV) Immunization (Adult) (1 - 1-dose 75+ series) 2036 Hepatitis B Immunization Aged Out No longer eligible based on patient's age to complete this topic Human Papillomavirus (HPV) Immunization Aged Out No longer eligible b ased [...] Recently Relevant to Health Maintenance Results * COLONOSCOPY (09/04/2020) Dominik Gilliam DO PROCEDURE/MINOR SURGICAL ORDERA BLES Final Result from Last 3 Months or Most Recently Relevant to Health Maintenance Care Teams Family Dinner Service Specialist Relationship Specialty Start Date End Date Dylan Rebolledo MD [address] [address] PCP - General Family Medicine 09/08/20
--- NOTE | 2025-09-13 06:44 | SUR.PREOP ---
PT MADE AWARE OF CHANGE IN SURGERY START TIME
--- NOTE | 2025-09-13 08:22 | WPDANESEPPF ---
Anes - Initial Pre Proc Eval Procedure: Operation Date: 09/13/25 08:30 Proposed Procedures p L3-4 Posterior Lumbar Interbody Fusion, Revision Posterior Instrumentation L4-5 - Paul Maya MD Date/Time: 09/13/25 08:22 Surgeon: Paul Maya MD Pre Op Diagnosis: arthrodesis status, lumbar herniation Patient Data Age: 65 Gender: M Height: 1.71 m Weight: 107.5 kg Last Vital Signs Temp 36.6 C 09/13/25 06:20 Pulse 91 09/13/25 06:20 Resp 18 09/13/25 06:20 BP 125/65 09/13/25 06:20 Pulse Ox 97 09/13/25 06:20 O2 Del Method Room Air 09/13/25 06:20 Allergies Allergy/AdvReac Type Severity Reaction Status Date / Time oxycodone AdvReac Nausea and Verified 09/13/25 06:35 Vomiting Home Medications ?Medication ?Instructions ?Recorded ?Confirmed ?Type ascorbic acid (vitamin C) 1,000 mg 1 g PO DAILY 08/28/20 09/13/25 History tablet cyanocobalamin (vitamin B-12) 1,000 mcg PO DAILY 08/28/20 09/13/25 History 1,000 mcg tablet (Vitamin B-12) vitamin E mixed 400 unit capsule 400 unit PO DAILY 08/28/20 09/13/25 History bqcxnjcgnygl-penczmby-ykjkkf 1 tablet PO DAILY 10/02/20 09/13/25 History tablet (Multivitamin 50 Plus tablet) omeprazole 20 mg capsule,delayed 20 mg PO DAILY 11/19/21 09/13/25 History release azelastine 137 mcg (0.1 %) nasal 1 spray intranasal Q12H #30 mL 12/18/21 09/13/25 Rx spray ergocalciferol (vitamin D2) 1,000 2,000 unit PO DAILY 05/17/24 09/13/25 History unit capsule acetaminophen 500 mg tablet 1,000 mg PO Q6H PRN pain 11/25/24 09/02/25 History (Tylenol Extra Strength) ferrous sulfate 325 mg (65 mg 325 mg PO DAILY 11/25/24 09/13/25 History iron) tablet (FeroSul) fexofenadine 180 mg tablet 180 mg PO DAILY 11/25/24 09/13/25 History (Comfort Allergy) irbesartan 75 mg tablet 75 mg PO DAILY #30 tabs 05/30/25 09/13/25 Rx duloxetine 60 mg capsule,delayed See Rx Instructions .Route 09/12/25 09/13/25 Rx release .COMPLEX #90 caps Patient hx anesthesia problems: none Family hx anesthesia problems: none Results Review: All pre-operative results and documents have been reviewed as part of the pre-operative evaluation. [facility] Past Medical History Medical History Low back pain potentially associated with radiculopathy MRI of the lumbar spine on 08/06/2024 with severe spondylosis and degenerative arthritis of the lower lumbar spine. Compression fractures T10 and T11. Mild diastolic dysfunction (~04/2022) No diastolic dysfunction on echo on 10/12/2024. Cardiac murmur new murmur 09/20/2024. Echo 10/12/2024 with ejection fraction 60-65% with normal diastolic function and mild to moderate mitral valve regurgitation. Moderate mitral valve regurgitation mild to moderate mitral valve regurgitation on echo 10/12/2024, not previously noted on echo on 06/14/2022. BMI 38.0-38.9,adult Low ferritin ferritin 21 01/07/2023. Iron 70, 23% saturation, ferritin 29 on 03/03/2024. Ferritin 62 on 09/06/2024. Male erectile dysfunction, unspecified (~01/13/23) BMI 39.0-39.9,adult Obesity (BMI 30-39.9) Hypogonadism male (01/07/23) testosterone low at 199 with free testosterone 38 on 01/07/2023. Essential hypertension (~06/2022) Central sleep apnea (05/20/22) index of 6.0 on home sleep study with oxygen desaturation to 75% on 05/20/2022. Schedule CPAP titration and echocardiogram. Echocardiogram with mild diastolic dysfunction with ejection fraction normal at 60 to 65% on 06/14/2022. BMI 37.0-37.9, adult Hypersomnia Snoring Dysphagia Sleep-disordered breathing Uvular hypertrophy Laryngopharyngeal reflux (LPR) Nasal polyps Chronic sinusitis PND (post-nasal drip) Hypertrophy of both inferior nasal turbinates Nasal septal deviation Nasal congestion Nasal obstruction BMI 36.0-36.9,adult Bilateral chronic knee pain Gastric ulcer Adenomatous colon polyp Acute recurrent maxillary sinusitis Exposure to COVID-19 virus Osteoarthritis involving multiple joints on both sides of body GERD (gastroesophageal reflux disease) normal EGD with Dr. Gilliam on 10/19/2020 Vitamin D deficiency, unspecified Level low at 29 on 01/07/2023. Vitamin-D low at 27 on 03/03/2024. Level normal at 34 on 09/06/2024. Vitamin B12 deficiency anemia Level normal at 936 with hemoglobin 13.5 and folic acid 21.2 on 01/07/2023. Normal at 1099 with hemoglobin 13.3 and folic acid 21.2 on 03/03/2024. Level normal at 1863 with hemoglobin 13.4 on 05/06/2025. Seasonal allergic rhinitis Acute recurrent sinusitis Migraine Depression Surgical History Surgical History H/O knee surgery H/O neck surgery Family History Family History Mother , age 89 Breast cancer Heart valve disorder Father , age 90 Cancer Heart disease Arthritis Social History Social History Years smoked: 10 Smoking status: Former smoker Tobacco type: cigarettes Second hand tobacco smoke exposure: No Smoking end date: 03/22/95 Alcohol intake: current Drinks per week: 1 Alcohol use details: beer and vodka seldom Substance use: never Substance use type: does not use Lack of Transportation: No Lack of Food: Never True Current Housing: I Have Housing Concerned About Future Housing: No Difficulty Paying Gas/Electric Bills: No Difficulty Paying for Meds: No Currently Unemployed: No Education: Associate Degree Difficulty w/ Childcare or Family Care: No Living arrangements: with family Additional living arrangements comments: 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 Informed Consent: The patient's anesthetic plan and its attendant risks and benefits were discussed with the patient/family/POA. Questions were solicited and answers provided to the satisfaction of the patient/family/POA.
[2025-09-13] MEDS: ceFAZolin 2 GM in SODIUM CHLORIDE 0.9% IV 50 ML 100 ML IVPB ×2 (08:56→20:10)
--- NOTE | 2025-09-13 09:03 | PM.IMHP2 ---
H&P: HPI History of Present Illness Date/Time: 09/13/25 09:03 Chief Complaint: Back and leg pain Narrative: Joseph is a 65-year-old gentleman who in November of this year underwent an L4-5 posterior lumbar interbody fusion and did well after that operation with good recovery and improved if not eliminated discomfort. He now presents with a history since March of new pain above that operative site and extending into his left lower extremity down to the knee. This discomfort is with him at all times. Sitting in a car is particularly difficult for him. It is not associated with specific muscle group weakness but he does have dermatomal numbness in the same distribution as the discomfort, which seems like an L3 distribution. He does not report bowel or bladder difficulty. The discomfort came on without inciting event. He was celebrating a birthday a [employer] Leung when it happened and underwent MRI imaging at [facility]. The pain is severe and limiting and distracting for him on a daily basis. He has participated in physical therapy, had injections and has taken oral and [id number] medications to try to help with this discomfort without permanent benefit. Review of Systems Review of Systems: All systems reviewed & are unremarkable except as noted in HPI and below Denies chills, Denies fever, Denies weight gain and Denies weight loss Eyes Denies change in vision and Denies diplopia ENT Denies disequilibrium Card Denies chest pain and Denies dyspnea Resp Denies cough and Denies dyspnea GI Denies abdominal pain, Denies change in bowel habits, Denies fecal incontinence and Denies vomiting Denies hematuria, Denies oliguria, Denies difficulty urinating, Denies dysuria, Denies urinary frequency, Denies urinary hesitancy, Denies urinary incontinence and Denies urinary urgency Musc Reports as per HPI Skin/ Breast Reports system reviewed and no additional complaints, except as documented Neuro Reports as per HPI Psych Reports no additional complaints, Denies depression and Denies hopelessness Endo Reports no additional complaints and Denies polyuria Alcon/ Lymph Reports no additional complaints Aller/ Immun Reports no additional complaints PMFSH Past Medical History Medical History Low back pain potentially associated with radiculopathy MRI of the lumbar spine on 08/06/2024 with severe spondylosis and degenerative arthritis of the lower lumbar spine. Compression fractures T10 and T11. Mild diastolic dysfunction (~04/2022) No diastolic dysfunction on echo on 10/12/2024. Cardiac murmur new murmur 09/20/2024. Echo 10/12/2024 with ejection fraction 60-65% with normal diastolic function and mild to moderate mitral valve regurgitation. Moderate mitral valve regurgitation mild to moderate mitral valve regurgitation on echo 10/12/2024, not previously noted on echo on 06/14/2022. BMI 38.0-38.9,adult Low ferritin ferritin 21 01/07/2023. Iron 70, 23% saturation, ferritin 29 on 03/03/2024. Ferritin 62 on 09/06/2024. Male erectile dysfunction, unspecified (~01/13/23) BMI 39.0-39.9,adult Obesity (BMI 30-39.9) Hypogonadism male (01/07/23) testosterone low at 199 with free testosterone 38 on 01/07/2023. Essential hypertension (~06/2022) Central sleep apnea (05/20/22) index of 6.0 on home sleep study with oxygen desaturation to 75% on 05/20/2022. Schedule CPAP titration and echocardiogram. Echocardiogram with mild diastolic dysfunction with ejection fraction normal at 60 to 65% on 06/14/2022. BMI 37.0-37.9, adult Hypersomnia Snoring Dysphagia Sleep-disordered breathing Uvular hypertrophy Laryngopharyngeal reflux (LPR) Nasal polyps Chronic sinusitis PND (post-nasal drip) Hypertrophy of both inferior nasal turbinates Nasal septal deviation Nasal congestion Nasal obstruction BMI 36.0-36.9,adult Bilateral chronic knee pain Gastric ulcer Adenomatous colon polyp Acute recurrent maxillary sinusitis Exposure to COVID-19 virus Osteoarthritis involving multiple joints on both sides of body GERD (gastroesophageal reflux disease) normal EGD with Dr. Gilliam on 10/19/2020 Vitamin D deficiency, unspecified Level low at 29 on 01/07/2023. Vitamin-D low at 27 on 03/03/2024. Level normal at 34 on 09/06/2024. Vitamin B12 deficiency anemia Level normal at 936 with hemoglobin 13.5 and folic acid 21.2 on 01/07/2023. Normal at 1099 with hemoglobin 13.3 and folic acid 21.2 on 03/03/2024. Level normal at 1863 with hemoglobin 13.4 on 05/06/2025. Seasonal allergic rhinitis Acute recurrent sinusitis Migraine Depression Surgical History Surgical History H/O knee surgery H/O neck surgery Family History Family History Mother , age 89 Breast cancer Heart valve disorder Father , age 90 Cancer Heart disease Arthritis Social History Social History Years smoked: 10 Smoking status: Former smoker Tobacco type: cigarettes Second hand tobacco smoke exposure: No Smoking end date: 03/22/95 Alcohol intake: current Drinks per week: 1 Alcohol use details: beer and vodka seldom Substance use: never Substance use type: does not use Lack of Transportation: No Lack of Food: Never True Current Housing: I Have Housing Concerned About Future Housing: No Difficulty Paying Gas/Electric Bills: No Difficulty Paying for Meds: No Currently Unemployed: No Education: Associate Degree Difficulty w/ Childcare or Family Care: No Living arrangements: with family Additional living arrangements comments: 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 Gender identity (if verbalized by the patient): Male Spiritual care concerns: No Meds Home Medications and Allergies Home Medications ?Medication ?Instructions ?Recorded ?Confirmed ?Type ascorbic acid (vitamin C) 1,000 mg 1 g PO DAILY 08/28/20 09/13/25 History tablet cyanocobalamin (vitamin B-12) 1,000 mcg PO DAILY 08/28/20 09/13/25 History 1,000 mcg tablet (Vitamin B-12) vitamin E mixed 400 unit capsule 400 unit PO DAILY 08/28/20 09/13/25 History hpzcehpjbqlu-xcbqnani-yxandz 1 tablet PO DAILY 10/02/20 09/13/25 History tablet (Multivitamin 50 Plus tablet) omeprazole 20 mg capsule,delayed 20 mg PO DAILY 11/19/21 09/13/25 History release azelastine 137 mcg (0.1 %) nasal 1 spray intranasal Q12H #30 mL 12/18/21 09/13/25 Rx spray ergocalciferol (vitamin D2) 1,000 2,000 unit PO DAILY 05/17/24 09/13/25 History unit capsule acetaminophen 500 mg tablet 1,000 mg PO Q6H PRN pain 11/25/24 09/02/25 History (Tylenol Extra Strength) ferrous sulfate 325 mg (65 mg 325 mg PO DAILY 11/25/24 09/13/25 History iron) tablet (FeroSul) fexofenadine 180 mg tablet 180 mg PO DAILY 11/25/24 09/13/25 History (Comfort Allergy) irbesartan 75 mg tablet 75 mg PO DAILY #30 tabs 05/30/25 09/13/25 Rx duloxetine 60 mg capsule,delayed See Rx Instructions .Route 09/12/25 09/13/25 Rx release .COMPLEX #90 caps Allergies Allergy/AdvReac Type Severity Reaction Status Date / Time oxycodone AdvReac Nausea and Verified 09/13/25 06:35 Vomiting Vital Signs Vital Signs - 24 hr 09/13/25 06:20 Temperature 97.8 F Pulse Rate 91 Respiratory Rate 18 Blood Pressure 125/65 Pulse Oximetry 97 Oxygen Delivery Room Air Exam Narrative: General: cooperative, no acute distress, well developed, alert and awake Orientation/Consciousness: oriented to person, oriented to place and oriented to time Constitutional Limitations: no limitations Other: The patient is a normally developed, normal appearing male sitting on the examination table in no acute distress. He is awake, alert, and oriented x3 with good fund of knowledge, recall of events, and fluent speech. [facility] Head: normocephalic and atraumatic Ears: external ears normal Face/Nose/Sinus: Normal external nose present Eyes Eyelids: eyelids normal Pupils: Yes Pupils normal by confrontation EOM: EOMs intact bilaterally Neck General: Yes no meningeal signs, Yes supple and Yes no JVD Resp Effort/Inspection: normal respiratory effort and able to speak in complete sentences Cardio Rate: Yes regular rate GI Inspection: No abdominal distension Musc Other: Examination of the back reveals mild tenderness. Range of motion of the back is full without pain in forward flexion and lateral rotation to both sides. there is some discomfort in extension and coming out of flexion. Straight leg raise is negative bilaterally. Porfirio?s test is negative bilaterally. Skin General: normal color Neuro General: Yes oriented to person, Yes oriented to place, Yes oriented to time, Yes normal cognition and Yes no meningeal signs Cranial Nerves: Yes CN's II-XII intact bilaterally Other: Motor: Strength is normal, 5/5, throughout all muscle groups of the bilateral and lower extremities to direct confrontation. Sensory: Sensation is intact to light touch throughout theand lower extremities bilaterally. Reflexes: Deep tendon reflexes are normal and symmetric at the knees and difficult to elicit at the ankles bilaterally. There is no clonus. Gait: Gait, station, and transfers are independent and steady for short periods of time and over short distances. Psych Appearance: grossly normal Mental status: Yes mental status grossly normal Mood: congruent mood Affect: Yes normal affect Speech/Movement: Normal speech and movement present Attitude: Yes cooperative Thought Content: Normal thought content present Review of studies: MRI of the lumbar spine was personally reviewed by me. This was on March [facility]. Is a poor quality study with very grainy pictures especially in the axial views that obscure anatomic detail. It does appear that there is a disc herniation on the left at L3-4 that might extend into the foramen. As mentioned, this is difficult to see. There is relative central canal stenosis at L3-4 which is new may be related to the disc herniation. There is L4-[address] Assessment and Plan Assessment and plan (1) Lumbar stenosis with neurogenic claudication: Code(s): M48.062 - Spinal stenosis, lumbar region with neurogenic claudication Status: Acute (2) Status post lumbar spinal arthrodesis: Code(s): Z98.1 - Arthrodesis status Status: Acute (3) Lumbar disc herniation: Code(s): M51.26 - Other intervertebral disc displacement, lumbar region Status: Acute Plan Joseph is a 65-year-old gentleman with a new problem he level adjacent fusion was done earlier this year. It is likely a disc herniation but the MRI that was performed is of poor quality and imaging detail is obscured. I recommended him advancement of his fusion up to L3 by way of L3-4 posterior lumbar interbody fusion and described to him that operation, its risks, potential benefits, the operative and postoperative course in detail and answered all his questions personally. We discussed risks including but not limited to permanent neurologic deficit secondary to nerve root injury, need for reoperation secondary to infection, bleeding, CSF leak, adjacent level disease, recurrent or residual pathology or instability, failure of the procedure to relieve his pain or symptoms, persistent pain, medical complications related anesthesia or surgery, etc.. He indicates understanding and elects to proceed with that operation. It is possible that we will shrink the operation to just be a far lateral microdiskectomy if the imaging supports that and we have confidence that that would be a durable result for him. It of course risks failure and need to proceed to a fusion in the short term.
--- NOTE | 2025-09-13 09:07 | WPDHPUPDATE1 ---
History and Physical Update Update Date/Time: 09/13/25 09:07 History and Physical has been reviewed, including an updated exam of the patient. There are NO changes in the patient's condition. Risks, benefits, and alternatives have been discussed and questions answered. Patient agrees to proceed with procedure.
[2025-09-13] MEDS: LIDO 1%/EPINEPHRINE 1:100,000 20 ML VIAL 10 ML INFILTRATE (09:42)
[2025-09-13] MEDS: LACTATED RINGERS 1,000 ML 30 ML IV CONT (12:36)
[2025-09-13] MEDS: fentaNYL CITRATE INJ (*CRX) 100 MCG/2 ML VIAL 25 MCG IV PUSH ×4 (13:39→13:59)
[2025-09-13] MEDS: HYDROcodone/acetaminophen (*CRX) 10-325 MG TABLET 1 TAB PO ×2 (15:05→21:55)
[2025-09-13] MEDS: KCL 20 MEQ/D5/0.45% SOD CHL 1,000 ML 100 ML IV CONT (15:06)
--- NOTE | 2025-09-13 15:22 | ADMGEN ---
This patient, Joseph Land, was admitted to [address] [facility] Surg Room 312-01. Patient/family oriented to hospital policies and general routines including ID bracelet, bed and alarms, visiting hours, pain management, procedures, bathroom and other care routines, personal items, smoking policy, room service/diet, and visiting hours. Information on how to activate the Rapid Response Team has been discussed. Patient/Family are encouraged to report perceived risks to care and to ask questions if they do not understand what they are told or what they should do. received report from zoya.
[2025-09-13] MEDS: HYDROmorphone HCL INJ (*CRX) 1 MG/ML SYR 0.5 MG IV PUSH (19:24)
[2025-09-13] MEDS: DOCUSATE SODIUM 100 MG CAPSULE PO (20:10)
--- NOTE | 2025-09-13 22:48 | P.OP_ITS ---
Procedure Note - Detailed Date of Procedure 09/13/25 Pre-op Diagnosis arthrodesis status, lumbar herniation Post-op Diagnosis Same Procedure Performed L3-4 complete laminectomy and bilateral facetectomy, L3-4 complete diskectomy and interbody arthrodesis utilizing titanium interbody devices and local autograft, L3-4 pedicle screw instrumentation with revision posterior instrumentation L4-5 Surgeon Paul Maya MD Anesthesia General Description of Procedure patient was brought to the operating room in the supine position, was sedated, intubated and placed under general anesthesia in routine fashion. He was then turned into the prone position on a Bc frame. The operation his back was examined, marked for incision, prepped and draped in routine sterile fashion. Incision was marked over the L3 through 5 spinous processes in the midline. This area was injected with 0.5% lidocaine with 1 200,000 epinephrine. Intravenous antibiotics given prior to incision. Incision was made with a 10 blade scalpel down to the lumbodorsal fascia. A subperiosteal dissection of the muscle soft tissue away from spinous process and lamina at L3 was performed with the subperiosteal elevator and Bovie cautery. Verifying x-rays obtained to verify level of operation. The L3 spinous process was removed with a Arabella rongeur. Kerrison punches, curved curettes and a Leksell rongeur were used to remove lamina in the midline until the soft contents of the canal were encountered. A Midas Camilo drill was used to resect the pars bilaterally at L3. The inferior articular process and facet of L3 could then be removed. These spinous process were stripped free of soft tissue and morselized for later use as interbody autograft. Kerrison punches and curved curettes were used to define a plane with the dura and removed bone and ligament flush with the pedicles and through the foramina widely decompressing the exiting nerve roots. With the thecal sac retracted and protected the disc space was entered bilaterally using an 11 blade scalpel. Scrapers of various sizes, curettes of various configurations, pituitary rongeur and a rasp were used to remove as much cartilaginous endplate and disc material as possible down to bleeding cortical surfaces on the opposing bones. The disc space was then sized and appropriately sized interbody devices were chosen and filled with local autograft bone. The disc space was likewise filled with local autograft bone medially and anteriorly. The interbody devices were then placed 2-3 mm countersink within the disc space bilaterally. Pedicle screw instrumentation was performed at L3 by observing and palpating the pedicle while a hole was made in superior articular process above the pedicle using a Midas Camilo drill. The pedicle was then cannulated with pedicle probe, checked for continuity with the ball probe, tapped with a 5.5 mm tap and a 6.5 x 50 mm screw was placed into each pedicle. The caps at L4 and L5 were removed with the appropriate delivery driver assistant. The previous rods removed. A longer gisel was placed into the screw heads on either side and secured in position using the capsular that purpose. These were definitively tightened with the torque and anti torque device. A verifying x-rays obtained to verify good position of the instrumentation which was confirmed. Wound was then copiously irrigated with bacitracin irrigation all bleeding stopped with bipolar and Bovie cautery and Gelfoam thrombin powder. The wound was then closed in layered fashion with 2-0 Vicryl interrupted sutures in the lumbodorsal fascia and Jen's layer. 3-0 Vicryl buried interrupted sutures were placed in the dermis and the skin was closed with a running 4-0 Monocryl subcuticular stitch and dressed with Dermabond. The patient was allowed to wake up in the operating room and was taken to the recovery room in stable condition. There were no immediate complications of this operation. All counts reported correct at the end of the case. Blood loss was 400 cc. The patient was neurologically at his baseline postoperatively. CPT codes: 87206, 47360, 01705, 75726, 21758 Estimated Blood Loss 400 Drains Yes Complications None Condition Stable Disposition PACU [facility] Billing Surgery - Charge Forward: Surgery Billing
[2025-09-13] MEDS: KCL 20 MEQ/D5/0.45% SOD CHL 1,000 ML 30 ML IV CONT (23:36)
[2025-09-14 03:48] VITALS: BP 125/58; PULSE 100; RESP 18; TEMP 36.2; O2SAT 100
[2025-09-14] MEDS: HYDROcodone/acetaminophen (*CRX) 10-325 MG TABLET 1 TAB PO ×3 (04:30→16:47)
[2025-09-14] MEDS: KCL 20 MEQ/D5/0.45% SOD CHL 1,000 ML 30 ML IV CONT (06:12)
[2025-09-14 07:48] VITALS: BP 121/63; PULSE 87; RESP 17; TEMP 36.5; O2SAT 100
[2025-09-14] MEDS: IRBESARTAN 75 MG TABLET PO (08:57)
[2025-09-14] MEDS: DOCUSATE SODIUM 100 MG CAPSULE PO ×2 (08:57→20:02)
[2025-09-14] MEDS: DULoxetine HCL 60 MG CAPSULE.DR BY MOUTH (08:58)
[2025-09-14] MEDS: PANTOPRAZOLE 40 MG TABLET PO (08:58)
[2025-09-14] MEDS: LORATADINE 10 MG TABLET PO (08:58)
[2025-09-14] MEDS: ceFAZolin 2 GM in SODIUM CHLORIDE 0.9% IV 50 ML 100 ML IVPB ×2 (08:58→20:02)
[2025-09-14] MEDS: FERROUS SULFATE 325 MG TABLET PO (08:58)
[2025-09-14] MEDS: CYCLOBENZAPRINE HCL 10 MG TABLET PO ×2 (11:07→20:02)
[2025-09-14 11:40] VITALS: BP 126/59; PULSE 91; RESP 17; TEMP 36.4; O2SAT 97
[2025-09-14 15:48] VITALS: BP 120/75; PULSE 85; RESP 19; TEMP 36.4; O2SAT 97
--- NOTE | 2025-09-14 17:37 | PC.NURSE ---
Patient was seen earlier this afternoon by Neurosurgery JAVA SPRING DEVELOPER Ashleigh, she had stated that she would contact Dr. Maya to get his discharge orders and medications in the computer for anticipated discharge tomorrow 09/15. Later, the patient and his had expressed concerns about being able to get medications sent to the pharmacy tomorrow due to the holiday. RN verified that the discharge had not yet been updated by the provider. RN placed call to after hours exchange per family request. Awaiting response.
[2025-09-14 20:03] VITALS: BP 108/62; PULSE 91; RESP 18; TEMP 36.2; O2SAT 98
[2025-09-15] MEDS: HYDROcodone/acetaminophen (*CRX) 10-325 MG TABLET 1 TAB PO ×3 (03:15→15:17)
[2025-09-15 05:47] VITALS: BP 111/56; PULSE 87; RESP 18; TEMP 36.4; O2SAT 97
[2025-09-15] MEDS: FERROUS SULFATE 325 MG TABLET PO (09:07)
[2025-09-15] MEDS: CYCLOBENZAPRINE HCL 10 MG TABLET PO (09:07)
[2025-09-15] MEDS: IRBESARTAN 75 MG TABLET PO (09:07)
[2025-09-15] MEDS: PANTOPRAZOLE 40 MG TABLET PO (09:07)
[2025-09-15] MEDS: LORATADINE 10 MG TABLET PO (09:07)
[2025-09-15] MEDS: DOCUSATE SODIUM 100 MG CAPSULE PO (09:07)
[2025-09-15] MEDS: DULoxetine HCL 60 MG CAPSULE.DR BY MOUTH (09:07)
[2025-09-15] MEDS: ceFAZolin 2 GM in SODIUM CHLORIDE 0.9% IV 50 ML 100 ML IVPB (09:08)
[2025-09-15 14:00] VITALS: BP 110/50; PULSE 99; RESP 18; TEMP 36.2; O2SAT 99
== END 2025-09-15 16:45 | disposition home or self-care (01) ==
LOC: ANHSURGERY 06:02 → ANH3MEDSUR 17:30
PROVIDERS: PCP Family Medicine; Visit Provider Neurological Surgery
PROC: (CPT 22612; principal; 2025-09-13 08:30)
DX: M51.26 Other intervertebral disc displacement, lumbar region (principal); M48.062 Spinal stenosis, lumbar region with neurogenic claudication; Z98.1 Arthrodesis status; Z87.891 Personal history of nicotine dependence
CPT/HCPCS: 22630; 22842; 22853; 20936; 97161; 97165; 97530; 99199; J0690; A9270; C1713; J1100; J1171; J2004; J2405; J2704; J3010; J3480; J7120